=== PATIENT | female | born 1980 | race Caucasian/White ===

== ENCOUNTER 2017-03-22 17:12 | Emergency (ER) | payer OTHER ==
[~2017-03-22] VITALS: Ht 149.9 cm; Wt 72.6 kg
[~2017-03-22 17:12] MED LIST: ALBU1AER9 INH; ATOR-26 PO; ATRINSX INH; BECL0.3A INH; CHOL400T SQ; CHOL4POW4 PO; CYM/30 PO; DXY100 PO; FENO145T26 PO; FLUT50SP14 NAE; INSUINJ14 SQ; METF1000 PO; MOME200A INH; MONT1TAB3 PO; TIOTCAP INH
[2017-03-22 17:16] VITALS: TEMP 36.8; Ht 149.9 cm; Wt 72.6 kg
[2017-03-22] MEDS ORDERED: ONDANSETRON INJ 2 MG/ML 2 ML VIAL IV STA (17:31)
[2017-03-22] MEDS ORDERED: SODIUM CHLORIDE 0.9% 1000ML 2,000 ML IV STA (17:31)
[2017-03-22] MEDS: MoRPHine SULFATE 4 MG/ML 1 ML CARP\\VIAL IV PRN ×2 (18:05→19:07)
[2017-03-22] MEDS ORDERED: FLUT0.15 (18:11)
[2017-03-22] MEDS ORDERED: INSDGIPEN SQ (18:11)
[2017-03-22] MEDS ORDERED: ALBI1INJ SQ (18:11)
[2017-03-22] MEDS ORDERED: QVRINH80 PO (18:11)
[2017-03-22] MEDS ORDERED: SPRIN PO (18:11)
--- NOTE | 2017-03-22 18:11 | EMERGENCY ROOM VISIT NOTE ---
History First contact with patient: 17:20 Chief Complaint: VOMITING Stated Complaint: VOMITING SINCE WED,ABD PAIN,DIARRHEA History of Present Illness The patient is a 36 year old female who presents to the Emergency Room with complaints of abdominal pain, nausea, vomiting, and diarrhea that started 4 days ago. She has also had some associated chills and low-grade fevers with this. Patient states she is a type II diabetic on metformin and had been taking twice daily NovoLog insulin, she states that she was taken off of the NovoLog and started on Tanzeum injections this past , which was the day before her symptoms started. She states the abdominal pain is severe, cramping and occasionally sharp, constant, diffuse throughout the whole abdomen, 03/21. She states the vomiting has also become severe, she states she is unable to keep anything down today. She did try Pepto-Bismol for her nausea, but states that she vomited this back up. She has had at least 6 episodes of watery diarrhea daily as well, and she notes that it was black today. She states her blood sugars have been running in the low to mid 200s for the past few days, which is higher than usual for her. She denies any headaches, vision changes, neck pain or stiffness, chest pain, shortness of breath, palpitations, dizziness or syncope, back pain, bright red blood in the vomit or stool, dysuria or urinary frequency. Review of Systems A complete 10 point review of systems was reviewed with the patient with pertinent positives and negatives as per history of present illness. All else were negative. Past Medical/Surgical History Medical Problems: (1) Asthma (2) Diabetes Social History Smoking Status: Current Every Day Smoker Alcohol Use: none Marital Status: single Occupation Status: unemployed Current/Historical Medications Scheduled Albiglutide (Tanzeum), 30 MG SQ WK Atorvastatin (Lipitor), 80 MG PO HS Beclomethasone Dip (Qvar), 1 PUFF PO BID Duloxetine Hcl (Cymbalta), 30 MG PO DAILY Fenofibrate (Tricor), 145 MG PO HS Insulin Glargine (Lantus Solostar), 30 UNITS SQ QPM Ipratropium Shellman (Atrovent 0.02% Soln), 2.5 ML INH TID Metformin Hcl (Glucophage), 1,000 MG PO BID Mometasone Furoate-Formoterol (Dulera 200/5 Mcg), 2 AER INH BID Montelukast Sodium (Singulair), 10 MG PO DAILY Ondasetron Odt (Zofran Odt), 4 MG SL Q6H Tiotropium Shellman (Spiriva Handihaler), 1 CAP PO DAILY Scheduled PRN Albuterol Sulfate (Proair Hfa), 2 PUFFS INH Q4H PRN for SOB/Wheezing Fluticasone Propionate (Nasal) (Flonase Allergy Relief), 1 SPRAY NA BID PRN for prn Allergies Reviewed in chart Physical Exam Vital Signs Date Time Temp Pulse Resp B/P (MAP) Pulse Ox O2 Delivery O2 Flow Rate FiO2 03/22/17 20:55 79 16 110/71 98 Room Air 03/22/17 19:00 82 18 107/64 97 Room Air 03/22/17 17:52 94 03/22/17 17:16 36.8 102 20 132/86 98 Room Air Physical Exam CONSTITUTIONAL: No acute distress, but appears uncomfortable and in pain. She is actively vomiting. Moderately dehydrated. Alert and oriented X 4 with normal affect. HEENT: Normocephalic, atraumatic. Pupils equal, round and reactive to light, EOMI. TMs normal. Pharynx normal. Dry mucous membranes. NECK: Supple, full active range of motion without discomfort. RESPIRATORY: Clear to auscultation bilaterally with no wheezing, crackles, rhonchi or stridor. Equal expansion bilaterally. CARDIOVASCULAR: Regular rate and rhythm with no murmurs, rubs or gallops. Normal peripheral perfusion. No edema. GASTROINTESTINAL: Diffuse abdominal tenderness to palpation, mild guarding. Soft and nondistended. Hyperactive bowel sounds. MUSCULOSKELETAL: Full range of motion of all joints without discomfort. INTEGUMENTARY: No rash or other significant dermatologic conditions noted. NEUROLOGIC: Cranial nerves II-XII grossly intact. No focal neurologic deficits noted. Medical Decision & Procedures ER Provider Diagnostic Interpretation: ABD/PELVIS IV CONTRAST ONLY CT DOSE: 514.57 mGy.cm HISTORY: Pain eval diverticulitis, colitis, infection TECHNIQUE: Multiaxial CT images of the abdomen and pelvis were performed following the use of intravenous contrast. A dose lowering technique was utilized adhering to the principles of ALARA. COMPARISON STUDY: 08/30/2015. FINDINGS: Lung bases show minimal chronic parenchymal scarring/nodularity. Liver spleen and pancreas are uniform. Mild stable fatty infiltration of liver. Prior cholecystectomy. Kidneys negative for hydronephrosis. Fluid-filled loops of small bowel as well as colon. Possibility of a mild enteritis is considered. Appendix is normal. 4.5 cm right ovarian cyst. Bladder is midline. No significant free fluid within the pelvic cul-de-sac. IMPRESSION: 1. Nonspecific enteritis. 2. 4.5 cm right ovarian cyst. 3. Normal appendix. 4. Fatty infiltration of liver post cholecystectomy. Laboratory Results 03/22/17 17:56 Red Blood Count 5.42, Mean Corpuscular Volume 89.3, Mean Corpuscular Hemoglobin 31.0, Mean Corpuscular Hemoglobin Concent 34.7, Mean Platelet Volume 11.2, Neutrophils (%) (Auto) 66.1, Lymphocytes (%) (Auto) 26.0, Monocytes (%) (Auto) 5.7, Eosinophils (%) (Auto) 1.5, Basophils (%) (Auto) 0.4, Neutrophils # (Auto) 7.50, Lymphocytes # (Auto) 2.94, Monocytes # (Auto) 0.64, Eosinophils # (Auto) 0.17, Basophils # (Auto) 0.04 03/22/17 17:56 Test 03/22/17 17:31 03/22/17 17:44 03/22/17 17:56 03/22/17 18:02 Bedside Glucose 147 mg/dl (70-90) White Blood Count 11.32 K/uL (4.8-10.8) Red Blood Count 5.42 M/uL (4.2-5.4) Hemoglobin 16.8 g/dL (12.0-16.0) Hematocrit 48.4 % (37-47) Mean Corpuscular Volume 89.3 fL (80-100) Mean Corpuscular Hemoglobin 31.0 pg (25-34) Mean Corpuscular Hemoglobin Concent 34.7 g/dl (32-36) Platelet Count 233 K/uL (130-400) Mean Platelet Volume 11.2 fL (7.4-10.4) Neutrophils (%) (Auto) 66.1 % Lymphocytes (%) (Auto) 26.0 % Monocytes (%) (Auto) 5.7 % Eosinophils (%) (Auto) 1.5 % Basophils (%) (Auto) 0.4 % Neutrophils # (Auto) 7.50 K/uL (1.4-6.5) Lymphocytes # (Auto) 2.94 K/uL (1.2-3.4) Monocytes # (Auto) 0.64 K/uL (0.11-0.59) Eosinophils # (Auto) 0.17 K/uL (0-0.5) Basophils # (Auto) 0.04 K/uL (0-0.2) RDW Standard Deviation 39.9 fL (36.4-46.3) RDW Coefficient of Variation 12.2 % (11.5-14.5) Immature Granulocyte % (Auto) 0.3 % Immature Granulocyte # (Auto) 0.03 K/uL (0.00-0.02) Venous Blood pH 7.40 (7.36-7.41) Venous Blood Partial Pressure CO2 34 mmHg (38.0-50.0) Venous Blood Partial Pressure O2 30 mmHg Venous Blood HCO3 21 mmol/L Venous Blood Oxygen Saturation 62.4 % Venous Blood Base Excess -2.9 mEq/L Est Creatinine Clear Calc Drug Dose 83.6 ml/min Estimated GFR () 109.2 Estimated GFR (Non- 94.2 BUN/Creatinine Ratio 13.9 (10-20) Calcium Level 9.6 mg/dl (8.5-10.1) Total Bilirubin 0.6 mg/dl (0.2-1) Direct Bilirubin 0.1 mg/dl (0-0.2) Aspartate Amino Transf (AST/SGOT) 20 U/L (15-37) Alanine Aminotransferase (ALT/SGPT) 29 U/L (12-78) Alkaline Phosphatase 105 U/L (45-117) Total Protein 8.4 gm/dl (6.4-8.2) Albumin 3.8 gm/dl (3.4-5.0) Lipase 153 U/L (73-393) Beta-Hydroxybutyric Acid 3.76 mg/dL (0.2-2.81) Bedside Lactic Acid Venous 1.41 mmol/L (0.90-1.70) Test 03/22/17 18:06 Bedside Hemoglobin 19.4 g/dl (12.0-16.0) Bedside Hematocrit 57 % (37-47) Bedside Sodium 140 mEq/L (135-144) Bedside Potassium 3.6 mEq/L (3.3-5.0) Bedside Chloride 105 mEq/L (101-112) Bedside Total CO2 20 mEq/l (24-31) Anion Gap 19.0 mmol/L (16-25) Bedside Blood Urea Nitrogen 12 mg/dl (7-18) Bedside Creatinine 0.8 mg/dl (0.6-1.3) Bedside Glucose (other) 155 mg/dl (70-99) Bedside Ionized Calcium (Jimenez) 1.20 mmol/l (1.12-1.32) Medications Administered Medications (Trade) Dose Ordered Sig/Bridgette Route Start Time Stop Time Status Last Admin Dose Admin Sodium Chloride 2,000 ml @ 999 mls/hr Q2H1M STAT IV 03/22/17 17:31 03/22/17 19:31 DC 03/22/17 18:05 999 MLS/HR Ondansetron HCl (Zofran Inj) 4 mg NOW STAT IV 03/22/17 17:31 03/22/17 17:36 DC 03/22/17 18:05 4 MG Morphine Sulfate (MoRPHine SULFATE INJ) 4 mg Q1H PRN IV 03/22/17 17:45 03/22/17 21:33 DC 03/22/17 19:07 4 MG Ondansetron HCl (ZOFRAN ODT 4MG Home Pack) 1 homepack UD ONCE PO 03/22/17 20:45 03/22/17 20:46 DC 03/22/17 20:45 1 HOMEPACK Acetaminophen (Tylenol Tab) 1,000 mg NOW STAT PO 03/22/17 20:58 03/22/17 21:02 DC 03/22/17 21:07 1,000 MG Medical Decision CC: Patient presenting with complaint of abdominal pain, nausea, vomiting, diarrhea Interpretation of Labs: Mild leukocytosis, no anemia, no significant electrolyte abnormalities, normal renal function, normal liver enzymes and lipase, normal lactic acid, normal pH. Small serum ketones. Urine dip negative for ketones or infection. Differential Diagnosis: Includes, but not limited to gastritis, gastroenteritis , DKA, hyperglycemia, dehydration, electrolyte abnormality, cholecystitis, pancreatitis, diverticulitis, colitis, SBO, medication side effects, among others. Medication Reconciliation: I attest that I have personally reviewed the patient' s current medication list. Vital signs review: I reviewed the patient's vital signs and interpret them as follows: T: Afebrile; BP: Normotensive; HR: Tachycardic; RR: Within normal limits; Pulse Ox: Within normal limits on room air. Blood pressure screening: The patient was found to have normal blood pressure on screening and does not require follow-up for repeat blood pressure check. Summary: Patient was evaluated at bedside, history of physical exam performed. Patient is alert and in no acute distress, but appears very uncomfortable and is vomiting. The abdomen is diffusely tender to palpation with some guarding, left side greater than right. The patient also appears moderately dehydrated. Given her recent changes in diabetes medication and report of elevated blood sugars over the past few days, I'm concerned for possible DKA, as well as adverse effects of Tanzeum, which is a new medication for her. Review of Tanzeum adverse effects includes acute pancreatitis, nausea and vomiting, and diarrhea. Orders were placed at bedside for labs including a CBC, CMP, lipase, VBG, lactic acid, serum ketones, UA, IV fluid bolus for hydration, IV morphine and Zofran for pain and nausea, CT abdomen/pelvis with IV contrast to evaluate abdominal pain. Patient discussed with Dr. Piedra, who agrees with my assessment and plan. Labs reviewed as above, small amount of serum ketones, no acidosis, I do not suspect DKA at this time. Mild leukocytosis. No evidence of acute pancreatitis. No ketonuria. CT imaging shows diffuse intestinal enteritis and right ovarian cyst, no other acute findings. Patient reassessed multiple times throughout ED stay, she is feeling much better , and now able to tolerate PO fluids. Her pain is also improved. Tachycardia resolved after IV fluids. I suspect patient may have a viral gastroenteritis, given leukocytosis with chills, vomiting, and diarrhea. She may also be having adverse side effects from the Tanzeum. I instructed her to call her PCP tomorrow to arrange follow up to discuss this medication. Patient was instructed on return precautions should her symptoms get worse, she verbalized understanding. Patient was provided with Rx for Zofran to help continue managing her nausea and vomiting and help her to maintain fluid intake for hydration. Patient was discharged home in stable condition and ambulatory. Medication Reconcilliation Current Medication List: was personally reviewed by me Blood Pressure Screening Patient's blood pressure: Normal blood pressure Impression Primary Impression: Nausea, vomiting, and diarrhea Additional Impression: Dehydration, moderate Departure Information Dispostion Home / Self-Care Condition GOOD Prescriptions Ondasetron Odt (ZOFRAN ODT) 4 Mg Tab 4 MG SL Q6H for Nausea, #6 TAB Prov: Jerri GutiérrezTARA Velazquez 03/22/17 Referrals Asya Miranda PA-C (PCP) Patient Instructions ED Dehydration, ED Gastroenteritis Viral, My [facility] Additional Instructions You have been treated in the Emergency Department your Abdominal Pain, Nausea and Vomiting. Laboratory results and imaging studies have ruled out any emergent causes for your abdominal pain which would warrant admission or surgery. You did show signs of gastroenteritis on your CT scan, which is consistent with most likely a viral infection. You were also quite dehydrated. You have been prescribed Zofran to be used for any nausea or vomiting. Take as prescribed. For pain control, you can use the following [id number] medicines (if >12 yo): - Regular strength (325mg/tab) Tylenol (acetaminophen) 2 tabs every 4-6 hours as needed. Do not exceed 10 tablets in a 24 hour period. Avoid taking more than 3000 mg of Tylenol per day. This includes any other sources of acetaminophen you may take on a regular basis. Drink plenty of fluids to stay well hydrated. You should drink at least twice as much as she normally would as long as you're having any diarrhea or vomiting. Call your PCP tomorrow to schedule an appointment for close follow-up. You should discuss your new medication, Tanzeum, to determine if you are having bad side effects related to this medication. Please return to the emergency department for worsening symptoms, including severe worsening abdominal pain, persistent or worsening nausea/vomiting, vomiting up blood, dizziness or passing out, fevers or chills, decreased urination, or any other concerns. Work Instructions Return To Work: 2 days Problem Qualifiers
[2017-03-22 18:19] LABS: ISTAT CREATININE 0.8 mg/dl (0.6-1.3); ISTAT HEMOGLOBIN 19.4 g/dl (12.0-16.0); ISTAT IONIZED CALCIUM 1.2 mmol/l (1.12-1.32)
[2017-03-22 18:27] LABS: BASO % 0.4 %; BASO ABS # 0.04 K/uL (0-0.2); COMPLETE YES; EOS % 1.5 %; HEMATOCRIT 48.4 % (37-47); IG% 0.3 %; LYMPH ABS # 2.94 K/uL (1.2-3.4); MEAN CELL VOLUME 89.3 fL (80-100); MEAN CORPUSCULAR HGB CONC 34.7 g/dl (32-36); MEAN PLATELET VOLUME 11.2 fL (7.4-10.4); MONO % 5.7 %; NEUT % 66.1 %; PLATELET COUNT 233 K/uL (130-400); RED BLOOD COUNT 5.42 M/uL (4.2-5.4); WHITE BLOOD COUNT 11.32 K/uL (4.8-10.8)
[2017-03-22 18:28] LABS: BUN/CREATININE RATIO 13.9 (10-20); CALCIUM 9.6 mg/dl (8.5-10.1); CREATININE 0.8 mg/dl (0.60-1.20); POTASSIUM 3.7 mmol/L (3.5-5.1)
[2017-03-22 18:31] LABS: BETA-HYDROXYBUTYRATE 3.76 mg/dL (0.2-2.81)
[2017-03-22] MEDS ORDERED: OPTIRAY 320 IV PRN (19:00)
--- NOTE | 2017-03-22 19:12 | DIAGNOSTIC IMAGING REPORT ---
ABD/PELVIS IV CONTRAST ONLY CT DOSE: 514.57 mGy.cm HISTORY: Pain eval diverticulitis, colitis, infection TECHNIQUE: Multiaxial CT images of the abdomen and pelvis were performed following the use of intravenous contrast. A dose lowering technique was utilized adhering to the principles of ALARA. COMPARISON STUDY: 08/30/2015. FINDINGS: Lung bases show minimal chronic parenchymal scarring/nodularity. Liver spleen and pancreas are uniform. Mild stable fatty infiltration of liver. Prior cholecystectomy. Kidneys negative for hydronephrosis. Fluid-filled loops of small bowel as well as colon. Possibility of a mild enteritis is considered. Appendix is normal. 4.5 cm right ovarian cyst. Bladder is midline. No significant free fluid within the pelvic cul-de-sac. IMPRESSION: 1. Nonspecific enteritis. 2. 4.5 cm right ovarian cyst. 3. Normal appendix. 4. Fatty infiltration of liver post cholecystectomy. The above report was generated using voice recognition software. It may contain grammatical, syntax or spelling errors. Electronically signed by: Arjun Perez M.D. 03/22/2017 7:11 PM Dictated Date/Time: 03/22/2017 6:58 PM
[2017-03-22 20:15] LABS: VEN BLD GAS O2 SATURATION 62.4 %; VEN BLOOD GAS BASE EXCESS -2.9 mEq/L; VENOUS BLOOD GAS PCO2 34 mmHg (38.0-50.0); VENOUS BLOOD GAS PO2 30 mmHg
[2017-03-22] MEDS ORDERED: ONDA4TAB10 SL (20:35)
[2017-03-22] MEDS ORDERED: ONDANSETRON HOME PACK 4MG OD TAB PO ONE (20:45)
[2017-03-22 20:55] VITALS: BP 110/71; PULSE 79; O2SAT 98
[2017-03-22] MEDS ORDERED: ACETAMINOPHEN 500 MG TAB PO STA (20:58)
[2017-03-22 22:59] LABS: MANUAL MICROSCOPIC REQUIRED? NO; REVIEW REQ? NO; URINE APPEARANCE CLEAR (CLEAR); URINE BILIRUBIN NEG (NEG); URINE COLOR YELLOW; URINE EPITHELIAL CELL AUTO >30 /lpf (0-5); URINE NITRITE NEG (NEG); URINE SPECIFIC GRAVITY > 1.045 (1.000-1.030); UROBILINOGEN NEG (NEG)
== END 2017-03-22 21:14 | disposition home or self-care (01) ==
LOC: C.EDB 17:13 → C.EDA 21:14
DX: E86.0 Dehydration (principal); J45.909 Unspecified asthma, uncomplicated; E11.9 Type 2 diabetes mellitus without complications; F17.210 Nicotine dependence, cigarettes, uncomplicated; Z79.4 Long term (current) use of insulin; Z79.899 Other long term (current) drug therapy

== ENCOUNTER 2017-09-17 18:50 | Emergency (ER) | payer OTHER ==
[~2017-09-17] VITALS: Ht 149.9 cm; Wt 74.2 kg
[~2017-09-17 18:50] MED LIST changes: +ALBI1INJ SQ; -BECL0.3A INH; -CHOL400T SQ; -CHOL4POW4 PO; -DXY100 PO; +FLUT0.15; -FLUT50SP14 NAE; +INSDGIPEN SQ; -INSUINJ14 SQ; +ONDA4TAB10 SL; +QVRINH80 PO; +SPRIN PO; -TIOTCAP INH
[2017-09-17 18:53] VITALS: TEMP 36.5; Ht 149.9 cm; Wt 74.2 kg
[2017-09-17] MEDS ORDERED: SODIUM CHLORIDE 0.9% 1000ML 1,000 ML IV STA (19:17)
[2017-09-17] MEDS ORDERED: ONDANSETRON INJ 2 MG/ML 2 ML VIAL IV STA (19:17)
--- NOTE | 2017-09-17 19:20 | EMERGENCY ROOM VISIT NOTE ---
History Report prepared by Jan: Isak Stratton Under the Supervision of: Dr. Alex Fernandes M.D. First contact with patient: 18:56 Chief Complaint: HYPERGLYCEMIA Stated Complaint: SEVERE LOWER ABDOMINAL PAIN, HIGH SUGARS, WEAKNES History of Present Illness The patient is a 37 year old female with a past medical history of asthma, fibromyalgia, diabetes, hypertension, and hyperlipidemia and a past surgical history of a cholecystectomy and hysterectomy who presents to the ED with a cc of constant lower abdominal pain beginning yesterday at 1400. Positive for chills, feeling hot, and urinating less. Negative for dysuria, hematuria, and trauma. The patient states that she began to develop a sharp lower abdominal pain yesterday at 1400. She notes that her pain is worse on the left. She reports that she has had problems with her ovaries in the past, with her left one being removed and a cyst on the right. The patient states that she tried taking Tylenol and using a heating pad with no relief of her symptoms. She notes that her current pain feels similar to when she had a hysterectomy. She reports that she had diarrhea last night, but states that she has chronic diarrhea. Source of History: patient Onset: yesterday at 1400 Position: abdomen (lower) Timing: constant Associated Symptoms: + chills, + diarrhea, + urinary symptoms (urinating less) Note: The patient also complains of feeling hot. She denies any dysuria, hematuria, and trauma. Review of Systems See HPI for pertinent positives and negatives. A total of ten systems were reviewed and were otherwise negative. Past Medical & Surgical Medical Problems: (1) Asthma (2) Diabetes (3) Fibromyalgia (4) Hyperlipidemia (5) Hypertension (6) Right ovarian cyst Surgical Problems: (1) History of cholecystectomy (2) History of hysterectomy (3) History of tonsillectomy (4) Previous section (5) S/P removal of left ovary Family History Cancer Diabetes mellitus FHx: gallbladder disease Heart disease Hypertension Lung disease Social History Smoking Status: Current Every Day Smoker Alcohol Use: none Drug Use: none Marital Status: single Occupation Status: unemployed Current/Historical Medications Scheduled Atorvastatin (Lipitor), 80 MG PO HS Beclomethasone Dip (Qvar), 1 PUFF PO BID Duloxetine Hcl (Cymbalta), 30 MG PO DAILY Fenofibrate (Tricor), 145 MG PO HS Insulin Aspart (Novolog Flexpen), 6 UNITS SQ AC Insulin Glargine (Lantus Solostar), 30 UNITS SQ QPM Ipratropium [place] (Atrovent 0.02% Soln), 2.5 ML INH TID Metformin Hcl (Glucophage), 1,000 MG PO BID Mometasone Furoate-Formoterol (Dulera 200/5 Mcg), 2 AER INH BID Montelukast Sodium (Singulair), 10 MG PO DAILY Tiotropium [place] (Spiriva Handihaler), 1 CAP PO DAILY Tramadol Hcl (Ultram), 50 MG PO Q8H Scheduled PRN Albuterol Hfa (Ventolin Hfa), 2 PUFF INH Q4 PRN for Wheezing Dicyclomine Hcl (Bentyl), 10 MG PO TID PRN for Pain Fluticasone Propionate (Nasal) (Flonase Allergy Relief), 1 SPRAY NA BID PRN for prn Ipratropium Prescott (Ipratropium Prescott), 1 VIAL NEB TID PRN for SOB/Wheezing Ondansetron Hcl (Zofran), 4 MG PO Q8H PRN for Nausea Allergies Coded Allergies: Aspirin (Verified Allergy, Intermediate, UNABLE TO BREATHE, 07/30/14) Azithromycin (Verified Allergy, Intermediate, HIVES, 07/30/14) Dextromethorphan (Verified Allergy, Intermediate, asthma attack, 07/30/14) Guaifenesin (Verified Allergy, Intermediate, asthma attack, 07/30/14) NSAIDs (Verified Allergy, Intermediate, SHORTNESS OF BREATH, 07/30/14) Naproxen (Verified Allergy, Intermediate, SHORTNESS OF BREATH, 07/30/14) Uncoded Allergies: TREXAMET (Allergy, Intermediate, SHORTNESS OF BREATH, 12/04/11) MINT (Adverse Reaction, Severe, ASTHMA ATTACK, 09/17/17) Physical Exam Vital Signs Date Time Temp Pulse Resp B/P (MAP) Pulse Ox O2 Delivery O2 Flow Rate FiO2 09/17/17 21:46 86 18 105/66 98 09/17/17 20:57 82 18 112/76 99 Room Air 09/17/17 18:53 36.5 99 18 164/118 97 Room Air Physical Exam GENERAL: Awake, alert, well-appearing, NAD, wearing glasses HENT: Normocephalic, atraumatic. EYES: Normal conjunctiva. Sclera non-icteric. NECK: Supple. No nuchal rigidity. FROM. RESPIRATORY: CTAB, no rhonchi, wheezing, crackles CARDIAC: RRR, no MRG ABDOMEN: Soft, ND, BS+, right lower suprapubic and LLQ tenderness, worse in LLQ , not peritonitic MSK: No chest wall TTP, no LE edema, no CVA TTP NEURO: GCS 15, CN 2-12 intact, moves all 4s on command SKIN: No rash or jaundice noted. Medical Decision & Procedures ER Provider Diagnostic Interpretation: Radiology results as stated below per my review and radiologist interpretation: ABDOMEN 2VIEW W/PA CHEST RTN FINDINGS: The erect chest reveals no evidence of free air. There is no evidence of focal pulmonary consolidation.] Erect and supine views of the abdomen reveal no abnormally dilated loops of large or small bowel. There are no transition zone to indicate bowel obstruction. There are surgical clips within the right upper quadrant consistent with a prior cholecystectomy. IMPRESSION: No evidence of bowel obstruction. No evidence of free air. Electronically signed by: Thaddeus Jacobs M.D. 09/17/2017 8:[address] ABD/PELVIS IV CONTRAST ONLY FINDINGS: Lower chest: There are chronic right middle lobe airspace opacities. There is lower lobe bronchiectasis. There are scattered ill-defined lower lobe pulmonary nodules, likely infectious/inflammatory. Liver: There is hepatic steatosis. No focal masses are visualized. Gallbladder: Surgically absent Spleen: Top normal in size Pancreas: Unremarkable. Adrenal glands: Unremarkable. Kidneys: There is symmetric renal cortical enhancement. The kidneys are normal in size without hydronephrosis. Bowel: There are no transition zones indicate bowel obstruction. There is no acute diverticulitis. A few scattered colonic diverticula are visualized. The appendix appears normal. Peritoneum: There is no intraperitoneal free air or abdominal ascites. Vasculature: The abdominal aorta is normal in course and caliber. Adenopathy: None. Pelvic viscera: The patient is status post a prior hysterectomy. There is a 31 mm cystic right adnexal cyst. This is likely ovarian. This is smaller than on the prior study Skeletal structures: No destructive osseous lesions are seen. IMPRESSION: 1. No evidence of bowel obstruction. No evidence of free air 2. Normal appendix. No evidence of diverticulitis 3. 31 mm right adnexal cyst likely ovarian. This is smaller than the prior March 2017 study 4. Hepatic steatosis 5. Lower lobe bronchiectatic change 6. Chronic right middle lobe scarring 7. Ill-defined lower lobe nodular opacities, likely infectious/inflammatory Electronically signed by: Thaddeus Jacobs M.D. 09/17/2017 8:28 PM Laboratory Results 09/17/17 19:15 Red Blood Count 5.29, Mean Corpuscular Volume 88.5, Mean Corpuscular Hemoglobin 31.8, Mean Corpuscular Hemoglobin Concent 35.9, Mean Platelet Volume 11.1, Neutrophils (%) (Auto) 45.9, Lymphocytes (%) (Auto) 44.4, Monocytes (%) (Auto) 6.1, Eosinophils (%) (Auto) 2.9, Basophils (%) (Auto) 0.5, Neutrophils # (Auto) 4.32, Lymphocytes # (Auto) 4.18, Monocytes # (Auto) 0.57, Eosinophils # (Auto) 0.27, Basophils # (Auto) 0.05 09/17/17 19:15 Test 09/17/17 19:00 09/17/17 19:02 09/17/17 19:15 Urine Color YELLOW Urine Appearance CLOUDY (CLEAR) Urine pH 5.0 (4.5-7.5) Urine Specific [place] 1.015 (1.000-1.030) Urine Protein NEG (NEG) Urine Glucose (UA) 3+ (NEG) Urine Ketones NEG (NEG) Urine Occult Blood NEG (NEG) Urine Nitrite NEG (NEG) Urine Bilirubin NEG (NEG) Urine Urobilinogen NEG (NEG) Urine Leukocyte Esterase MODERATE (NEG) Urine WBC (Auto) >30 /hpf (0-5) Urine RBC (Auto) 0-4 /hpf (0-4) Urine Hyaline Casts (Auto) 1-5 /lpf (0-5) Urine Epithelial Cells (Auto) >30 /lpf (0-5) Urine Bacteria (Auto) 2+ (NEG) Urine Test NEG (NEG) Bedside Glucose 202 mg/dl (70-90) White Blood Count 9.41 K/uL (4.8-10.8) Red Blood Count 5.29 M/uL (4.2-5.4) Hemoglobin 16.8 g/dL (12.0-16.0) Hematocrit 46.8 % (37-47) Mean Corpuscular Volume 88.5 fL (80-100) Mean Corpuscular Hemoglobin 31.8 pg (25-34) Mean Corpuscular Hemoglobin Concent 35.9 g/dl (32-36) Platelet Count 219 K/uL (130-400) Mean Platelet Volume 11.1 fL (7.4-10.4) Neutrophils (%) (Auto) 45.9 % Lymphocytes (%) (Auto) 44.4 % Monocytes (%) (Auto) 6.1 % Eosinophils (%) (Auto) 2.9 % Basophils (%) (Auto) 0.5 % Neutrophils # (Auto) 4.32 K/uL (1.4-6.5) Lymphocytes # (Auto) 4.18 K/uL (1.2-3.4) Monocytes # (Auto) 0.57 K/uL (0.11-0.59) Eosinophils # (Auto) 0.27 K/uL (0-0.5) Basophils # (Auto) 0.05 K/uL (0-0.2) RDW Standard Deviation 38.9 fL (36.4-46.3) RDW Coefficient of Variation 12.2 % (11.5-14.5) Immature Granulocyte % (Auto) 0.2 % Immature Granulocyte # (Auto) 0.02 K/uL (0.00-0.02) Anion Gap 6.0 mmol/L (3-11) Est Creatinine Clear Calc Drug Dose 82.7 ml/min Estimated GFR () 106.8 Estimated GFR (Non- 92.1 BUN/Creatinine Ratio 8.7 (10-20) Calcium Level 9.3 mg/dl (8.5-10.1) Total Bilirubin 0.4 mg/dl (0.2-1) Direct Bilirubin < 0.1 mg/dl (0-0.2) Aspartate Amino Transf (AST/SGOT) 21 U/L (15-37) Alanine Aminotransferase (ALT/SGPT) 32 U/L (12-78) Alkaline Phosphatase 116 U/L (45-117) Total Protein 8.2 gm/dl (6.4-8.2) Albumin 3.5 gm/dl (3.4-5.0) Lipase 226 U/L (73-393) Laboratory results reviewed by me Medications Administered Medications (Trade) Dose Ordered Sig/Bridgette Route Start Time Stop Time Status Last Admin Dose Admin Sodium Chloride 1,000 ml @ 999 mls/hr Q1H1M STAT IV 09/17/17 19:17 09/17/17 20:17 DC 09/17/17 19:32 999 MLS/HR Ondansetron HCl (Zofran Inj) 4 mg NOW STAT IV 09/17/17 19:17 09/17/17 19:19 DC 09/17/17 19:32 4 MG Morphine Sulfate (MoRPHine SULFATE INJ) 8 mg NOW STAT IV 09/17/17 19:36 09/17/17 19:37 DC 09/17/17 19:41 8 MG Tramadol HCl (Ultram Tab) 50 mg NOW STAT PO 09/17/17 21:35 09/17/17 21:36 DC 09/17/17 21:40 50 MG Acetaminophen (Tylenol Tab) 1,000 mg NOW STAT PO 09/17/17 21:35 09/17/17 21:37 DC 09/17/17 21:42 1,000 MG ED Course 1905: The patient was evaluated in room C7. A complete history and physical exam was performed. 2121: I rechecked the patient. 2140: I reevaluated the patient. Discussed results and discharge instructions: She verbalized understanding and agreement. The patient is ready for discharge. Medical Decision The patient is a 37 year old female with a past medical history of diabetes, hypertension, and hyperlipidemia and a past surgical history of cholecystectomy and hysterectomy who presents to the ED with a cc of constant lower abdominal pain beginning yesterday at 1400. Positive for chills, feeling hot, and urinating less. Negative dysuria, hematuria, and trauma. Differential diagnosis: Etiologies such as appendicitis, diverticulitis, PUD, biliary pathology, UTI, pancreatitis, obstruction, mesenteric ischemia, aortic pathology, infections, inflammatory bowel disease, renal colic, as well as others were entertained. Patient was seen and evaluated the bedside. Patient was complaining some lower abdominal pain. Patient did have a recent bowel movement. Of note the patient has had some prior procedures. This has included a hysterectomy, left nephrectomy, and cholecystectomy. Patient has had some nausea but without vomiting. Patient did have blood work completed, urinalysis, urine test, CT of the abdomen pelvis. Patient's blood work is fairly unremarkable. Patient did have mild hyperglycemia but with a normal bicarb and anion gap. She is not in DKA. Patient CT abdomen pelvis is fairly unremarkable. Patient does have a right-sided ovarian cyst however it is decreased in size compared to prior. Patient is feeling mildly improved. Patient was able tolerate p.o. Patient's urinalysis is questionable for infection however the patient does not complain of any dysuria. A culture is pending. Patient was told to follow-up with any of her specialist. Patient was deemed suitable for outpatient follow- up and treatment at this time. Patient was given strict follow-up, discharge, and return precautions. All questions were answered. Patient was deemed suitable for outpatient follow-up at this time. Patient agreed with the plan of care and was safely discharged home. Head Trauma GCS Score: 15 Medication Reconcilliation Current Medication List: was personally reviewed by me Blood Pressure Screening Patient's blood pressure: Normal blood pressure Blood pressure disposition: Did not require urgent referral Impression Primary Impression: Lower abdominal pain Additional Impression: Hyperglycemia Scribe Attestation The scribe's documentation has been prepared under my direction and personally reviewed by me in its entirety. I confirm that the note above accurately reflects all work, treatment, procedures, and medical decision making performed by me. Departure Information Dispostion Home / Self-Care Prescriptions Ondansetron Hcl (ZOFRAN) 4 Mg Tab 4 MG PO Q8H Y for Nausea, #12 TAB Prov: Alex Fernandes M.D. 09/17/17 Tramadol Hcl (ULTRAM) 50 Mg Tab 50 MG PO Q8H, #12 TAB PRN PAIN Prov: Alex Fernandes M.D. 09/17/17 Dicyclomine Hcl (BENTYL) 10 Mg Cap 10 MG PO TID Y for Pain, #12 CAP Prov: Alex Fernandes M.D. 09/17/17 Referrals Asya Miranda PA-C (PCP) Forms HOME CARE DOCUMENTATION FORM, IMPORTANT VISIT INFORMATION, WORK / SCHOOL INSTRUCTIONS Patient Instructions Abdominal Pain, Hyperglycemia, My [facility] [place] Additional Instructions Please return to the emergency department if you have worsening or recurrent symptoms not amenable to at-home treatment. Please call for a follow-up appointment with her primary care physician. Please take your medications as prescribed. If you have other concerns and/or complaints please feel free to also call your primary care physician's office or return the ED for further evaluation, management, and treatment. Take your medications as prescribed. You have been examined and treated today on an emergency basis only. This is not a substitute for, or an effort to provide, complete comprehensive medical care. It is impossible to recognize and treat all injuries or illnesses in a single emergency department visit. It is therefore important that you follow up closely with [facility], your PCP, and/or your specialist(s). Call as soon as possible for an appointment. Thank you for your time and consideration. I look forward to speaking with you again soon. Please don't hesitate to call us if you have any questions. Problem Qualifiers
[2017-09-17] MEDS ORDERED: MoRPHine SULFATE 10 MG/ML CARP/VIAL IV STA (19:36)
[2017-09-17 19:37] LABS: BASO % 0.5 %; BASO ABS # 0.05 K/uL (0-0.2); EOS % 2.9 %; EOS ABS # 0.27 K/uL (0-0.5); HEMATOCRIT 46.8 % (37-47); HEMOGLOBIN 16.8 g/dL (12.0-16.0); IG# 0.02 K/uL (0.00-0.02); LYMPH % 44.4 %; LYMPH ABS # 4.18 K/uL (1.2-3.4); MEAN CELL VOLUME 88.5 fL (80-100); MEAN CORPUSCULAR HEMOGLOBIN 31.8 pg (25-34); MEAN CORPUSCULAR HGB CONC 35.9 g/dl (32-36); MEAN PLATELET VOLUME 11.1 fL (7.4-10.4); MONO % 6.1 %; MONO ABS # 0.57 K/uL (0.11-0.59); NEUT % 45.9 %; NEUT ABS # 4.32 K/uL (1.4-6.5); PLATELET COUNT 219 K/uL (130-400); RED CELL DISTRIBUTION WIDTH CV 12.2 % (11.5-14.5); RED CELL DISTRIBUTION WIDTH SD 38.9 fL (36.4-46.3); WHITE BLOOD COUNT 9.41 K/uL (4.8-10.8)
[2017-09-17 19:54] LABS: ALBUMIN 3.5 gm/dl (3.4-5.0); ALT/SGPT 32 U/L (12-78); BLOOD UREA NITROGEN 7 mg/dl (7-18); CALCIUM 9.3 mg/dl (8.5-10.1); CARBON DIOXIDE 27 mmol/L (21-32); CREATININE 0.81 mg/dl (0.60-1.20); GLUCOSE 193 mg/dl (70-99); LIPASE 226 U/L (73-393); POTASSIUM 3.7 mmol/L (3.5-5.1); SODIUM 136 mmol/L (136-145)
[2017-09-17 19:57] LABS: ALKALINE PHOSPHATASE 116 U/L (45-117); AST/SGOT 21 U/L (15-37); TOTAL PROTEIN 8.2 gm/dl (6.4-8.2)
--- NOTE | 2017-09-17 20:03 | DIAGNOSTIC IMAGING REPORT ---
ABDOMEN 2VIEW W/PA CHEST RTN CLINICAL HISTORY: Abdominal pain COMPARISON STUDY: No previous studies for comparison. FINDINGS: The erect chest reveals no evidence of free air. There is no evidence of focal pulmonary consolidation.] Erect and supine views of the abdomen reveal no abnormally dilated loops of large or small bowel. There are no transition zone to indicate bowel obstruction. There are surgical clips within the right upper quadrant consistent with a prior cholecystectomy. IMPRESSION: No evidence of bowel obstruction. No evidence of free air. Electronically signed by: Thaddeus Jacobs M.D. 09/17/2017 8:02 PM Dictated Date/Time: 09/17/2017 8:01 PM
[2017-09-17] MEDS ORDERED: OPTIRAY 320 IV PRN (20:30)
--- NOTE | 2017-09-17 20:30 | DIAGNOSTIC IMAGING REPORT ---
CT ABD/PELVIS IV CONTRAST ONLY CLINICAL HISTORY: Worsening left lower quadrant abdominal pain. COMPARISON STUDY: 03/22/2017 TECHNIQUE: Following the IV administration of 115 mL of Optiray-320, CT scan of the abdomen and pelvis was performed from the lung bases to the proximal femurs. Images are reviewed in the axial, sagittal, and coronal planes. IV contrast was administered without complication. A dose lowering technique was utilized adhering to the principles of ALARA. CT DOSE: 594.76 mGy.cm FINDINGS: Lower chest: There are chronic right middle lobe airspace opacities. There is lower lobe bronchiectasis. There are scattered ill-defined lower lobe pulmonary nodules, likely infectious/inflammatory. Liver: There is hepatic steatosis. No focal masses are visualized. Gallbladder: Surgically absent Spleen: Top normal in size Pancreas: Unremarkable. Adrenal glands: Unremarkable. Kidneys: There is symmetric renal cortical enhancement. The kidneys are normal in size without hydronephrosis. Bowel: There are no transition zones indicate bowel obstruction. There is no acute diverticulitis. A few scattered colonic diverticula are visualized. The appendix appears normal. Peritoneum: There is no intraperitoneal free air or abdominal ascites. Vasculature: The abdominal aorta is normal in course and caliber. Adenopathy: None. Pelvic viscera: The patient is status post a prior hysterectomy. There is a 31 mm cystic right adnexal cyst. This is likely ovarian. This is smaller than on the prior study Skeletal structures: No destructive osseous lesions are seen. IMPRESSION: 1. No evidence of bowel obstruction. No evidence of free air 2. Normal appendix. No evidence of diverticulitis 3. 31 mm right adnexal cyst likely ovarian. This is smaller than the prior March 2017 study 4. Hepatic steatosis 5. Lower lobe bronchiectatic change 6. Chronic right middle lobe scarring 7. Ill-defined lower lobe nodular opacities, likely infectious/inflammatory Electronically signed by: Thaddeus Jacobs M.D. 09/17/2017 8:28 PM Dictated Date/Time: 09/17/2017 8:22 PM
[2017-09-17] MEDS ORDERED: VNTHFA/IN INH (21:10)
[2017-09-17] MEDS ORDERED: NVLGI/PEN SQ (21:11)
[2017-09-17] MEDS ORDERED: ATRINS NEB (21:12)
[2017-09-17] MEDS ORDERED: DICY10CA55 PO (21:33)
[2017-09-17] MEDS ORDERED: ONDA4TAB46 PO (21:33)
[2017-09-17] MEDS ORDERED: TRAM-453 PO (21:33)
[2017-09-17] MEDS ORDERED: ACETAMINOPHEN 500 MG TAB PO STA (21:35)
[2017-09-17] MEDS ORDERED: TRAMADOL HCL 50 MG TAB PO STA (21:35)
[2017-09-17] MEDS ORDERED: TRAMADOL HCL 50 MG HOME PACK PO ONE (21:45)
[2017-09-17 21:46] VITALS: BP 105/66; PULSE 86; O2SAT 98
== END 2017-09-17 21:40 | disposition home or self-care (01) ==
LOC: C.EDB 18:50 → C.EDC 21:40
DX: R10.30 Lower abdominal pain, unspecified (principal); E11.65 Type 2 diabetes mellitus with hyperglycemia; J45.909 Unspecified asthma, uncomplicated; I10 Essential (primary) hypertension; E78.5 Hyperlipidemia, unspecified; M79.7 Fibromyalgia; N83.201 Unspecified ovarian cyst, right side; Z90.49 Acquired absence of other specified parts of digestive tract; Z90.710 Acquired absence of both cervix and uterus; Z90.721 Acquired absence of ovaries, unilateral; R19.7 Diarrhea, unspecified; F17.200 Nicotine dependence, unspecified, uncomplicated; Z79.4 Long term (current) use of insulin; Z79.84 Long term (current) use of oral hypoglycemic drugs; Z83.3 Family history of diabetes mellitus; Z82.49 Family history of ischemic heart disease and other diseases of the circulatory system; Z88.6 Allergy status to analgesic agent; Z88.1 Allergy status to other antibiotic agents; Z88.8 Allergy status to other drugs, medicaments and biological substances

== ENCOUNTER 2025-02-24 10:34 | Inpatient (IN) ==
[2025-02-24 11:08] LABS: Hematocrit (blood only) 44.0 % (37.0-47.0); Hemoglobin 14.7 g/dl (12.0-16.0); Immature Granulocytes # (auto) 0.02 K/uL (0.01-0.20); Immature Granulocytes % (auto) 0.2 %; Mean Corpuscular Hemoglobin 29.9 pg (25.0-34.0); Mean Corpuscular Volume 89.4 fL (80.0-100.0); Platelet Count 337 K/uL (130-400); RDW Standard Deviation 44.9 fL (36.4-46.3); Red Blood Count 4.92 M/uL (4.20-5.40); White Blood Count 11.65 K/ul (4.8-10.8)
[2025-02-24 11:23] LABS: Alanine Aminotransferase 40.0 U/L (7-52); Albumin Globulin Ratio 1.2 (0.9-2); Alkaline Phosphatase 98.0 U/L (34-104); Anion Gap 10.0 (3-11); Bilirubin,Total 0.4 mg/dl (0.2-1.0); Blood Urea Nitrogen 15.0 mg/dl (6-23); Calcium 9.7 mg/dl (8.6-10.3); Carbon Dioxide 22.0 mmol/L (21-32); Chloride 104.0 mmol/L (98-107); Creatinine Clr Calc Pharmacy 66.2 ml/min; Globulin 3.4 gm/dl (2.5-4.0); Glucose 235.0 mg/dl (70-99(Fasting)); Potassium 4.3 mmol/L (3.5-5.1); Sodium 136.0 mmol/L (136-145); Total Protein 7.5 gm/dl (6.0-8.3)
[2025-02-24 11:26] LABS: Pregnancy Test, Serum Negative (Negative)
--- NOTE | 2025-02-24 11:27 | Emergency Department Note ---
Impression & Plan Suicidal ideation, Anxiety ED Provider Note HISTORY OF PRESENT ILLNESS: Patient is a 44-year-old female presenting with anxiety and suicidal ideation. Patient reports that today she has had thoughts of wanting to end her life. She reports that if she would try to kill her self, "I would overdose." She reports she has had previous suicide attempts with an overdose a month ago. She reports has been to multiple inpatient psychiatric facilities in the last month. States that she was admitted at [facility] a month ago. States that she was admitted to the [facility] inpatient psychiatric unit last week. She states that she is currently on BuSpar for her anxiety. 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 Denies any auditory visual hallucinations. ROS: as above PHYSICAL EXAM: Constitutional: Patient appears in no acute distress. HENT: Head: Normocephalic and atraumatic. Eyes: EOMI, PERRL Mouth/Throat: Mucous membranes moist. Neck: Trachea midline. Neck supple. Musculoskeletal: No edema, tenderness or deformity noted. Skin: Warm and dry. No rash, erythema, pallor or cyanosis Psychiatric: Patient is tearful. Neurological: Alert and keenly responsive. CN II-XII grossly intact, moving all extremities equally and fully. MDM: - Vitals signs showed tachycardia - History obtained via patient. History as above. - Chronic conditions affecting care: anxiety/depression - Differential diagnoses include, but are not limited to: depression; UTI; drug intoxication; alcohol intoxication - External medical records reviewed. - Laboratory workup interpreted by myself showed slight leukocytosis (WBC 11.65); normal electrolytes; hyperglycemia (glucose 235); normal TSH; negative hCG; negative alcohol - UA negative for infection - UDS positive for MDMA - COVID negative - Patient seen in conjunction with [facility] case management rn. She was voluntary to 1 admission for inpatient psych. She was evaluated by behavioral health liaison for inpatient psychiatric unit at [address] Patient to be admitted to this unit for further evaluation and management. ASSESSMENT AND PLAN: Diagnosis: Suicidal ideation; anxiety Plan: admit Past Med/Surg History Problem List (Updated 02/24/25 @ 14:53 by Pauly Muñoz MD) Anxiety (Acute) Suicidal ideation (Acute) Asthma (Chronic) Hyperlipidemia Right ovarian cyst Urinary tract infection Right hip pain (Acute) Right hip pain (Acute) Diabetes (Chronic) Reactive airway disease (Acute) Influenza (Acute) Asthma exacerbation (Acute 07/30/14) Hyperglycemia (Acute) Hypertension Fibromyalgia Pneumonia (Acute) Lower abdominal pain (Acute) Medical History HTN (hypertension) Diabetes Neuropathy Fibromyalgia Surgical History S/P hysterectomy Social History Smoking Status: Current every day smoker Tobacco Type: Cigarettes Preferred Language: [place] marital status: Single current occupational status: unemployed Feels Safe at Home: Yes Gender Identity: Female Allergies Allergies Allergy/AdvReac Type Severity Reaction Status Date / Time aspirin Allergy Intermediate UNABLE TO Verified 07/30/14 14:01 BREATHE azithromycin Allergy Intermediate Hives Verified 06/19/19 14:44 dextromethorphan Allergy Intermediate asthma Verified 07/30/14 14:01 attack guaifenesin Allergy Intermediate asthma Verified 07/30/14 14:01 attack naproxen Allergy Intermediate SHORTNESS Verified 07/30/14 14:01 OF BREATH NSAIDS (Non-Steroidal Allergy Intermediate SHORTNESS Verified 07/30/14 14:01 Anti-Inflamma OF BREATH sumatriptan [From Treximet] Allergy Intermediate SHORTNESS Verified 06/19/19 14:44 OF BREATH mint AdvReac Severe ASTHMA Verified 06/19/19 14:44 ATTACK Home Meds Home Medications Medication Instructions Recorded Confirmed albuterol sulfate 90 mcg/actuation 2 puff inhalation Q4H PRN Wheezing 11/01/18 02/24/25 aerosol inhaler (Ventolin HFA) atorvastatin 80 mg tablet (Lipitor) 80 mg PO HS 11/01/18 02/24/25 fenofibrate nanocrystallized 145 145 mg PO HS 11/01/18 02/24/25 mg tablet (Tricor) fluticasone propionate 50 2 spray intranasal DAILY 11/01/18 02/24/25 mcg/actuation nasal spray,suspension (Flonase Allergy Relief) insulin aspart U-100 100 unit/mL 14 units subcut TIDM 11/01/18 02/24/25 (3 mL) subcutaneous pen (Novolog FlexPen U-100 Insulin aspart) insulin glargine 100 unit/mL (3 30 unit subcut HS 11/01/18 02/24/25 mL) subcutaneous pen (Basaglar KwikPen U-100 Insulin) metformin 500 mg tablet 1,000 mg PO BID 11/01/18 02/24/25 mometasone-formoterol HFA 200 2 puff inhalation BID 11/01/18 02/24/25 mcg-5 mcg/actuation aerosol inhaler (Dulera) montelukast 10 mg tablet 10 mg PO HS 11/01/18 02/24/25 (Singulair) pantoprazole 40 mg tablet,delayed 40 mg PO DAILY 11/01/18 02/24/25 release (Protonix) sertraline 50 mg tablet 75 mg PO DAILY 11/01/18 02/24/25 tiotropium bromide 18 mcg capsule 1 cap inhalation DAILY 11/01/18 02/24/25 with inhalation device (Spiriva with HandiHaler) buspirone 7.5 mg tablet 7.5 mg PO 2XD 02/24/25 02/24/25 insulin glargine 100 unit/mL (3 20 unit subcut 1XD 02/24/25 02/24/25 mL) subcutaneous pen (Lantus Solostar U-100 Insulin) midodrine 5 mg tablet 5 mg PO 2XD 02/24/25 02/24/25 mirtazapine 15 mg tablet mg PO 1XD 02/24/25 trazodone 50 mg tablet 50 mg PO 1XD 02/24/25 02/24/25 Previous Rx's Medication Instructions Recorded sulfamethoxazole 800 1 tab PO BID #20 tabs 08/26/23 mg-trimethoprim 160 mg tablet (Bactrim DS) Results & Data (ED) Vital Signs Vital Signs - 24 hr 02/24/25 10:36 02/24/25 13:16 Temperature 36.3 C L Temperature Source Temporal Artery Scan Pulse Rate 91 H Pulse Rate [Apical] 75 Pulse Rhythm [Apical] Regular Pulse Strength [Apical] Normal Respiratory Rate 19 19 Respiratory Effort / Characteristics Non-Labored Spontaneous Respiratory Depth Normal Respiratory Pattern Regular Blood Pressure 132/92 Blood Pressure [Right Arm] 97/60 L Blood Pressure Mean 105 Blood Pressure Mean [Right Arm] 72 Blood Pressure Position [Right Arm] Lying Pulse Oximetry 95 96 Oxygen Delivery Method Room Air Room Air Sepsis New/Unexplained Change in Mental Status No Sepsis Action Taken by Nursing No Action Required Laboratory Data 02/24/25 10:54 02/24/25 10:54 Lab Results 02/24/25 02/24/25 Range/Units 10:54 12:03 WBC 11.65 H (4.8-10.8) K/ul RBC 4.92 (4.20-5.40) M/uL Hgb 14.7 (12.0-16.0) g/dl Hct 44.0 (37.0-47.0) % MCV 89.4 (80.0-100.0) fL MCH 29.9 (25.0-34.0) pg MCHC 33.4 (32.0-36.0) g/dL RDW Std Deviation 44.9 (36.4-46.3) fL RDW Coeff of [place] 13.8 (11.5-14.5) % Plt Count 337 (130-400) K/uL MPV 10.3 (9.4-12.4) fL Immature Gran % (Auto) 0.2 % Neut % (Auto) 59.9 % Lymph % (Auto) 31.2 % [place] % (Auto) 6.4 % Eos % (Auto) 1.6 % Baso % (Auto) 0.7 % Neut # (Auto) 6.98 H (1.40-6.50) K/uL Lymph # (Auto) 3.63 H (1.20-3.40) K/uL [place] # (Auto) 0.75 H (0.11-0.59) K/uL Eos # (Auto) 0.19 (0.00-0.50) K/uL Baso # (Auto) 0.08 (0.00-0.20) K/uL Immature Gran # (Auto) 0.02 (0.01-0.20) K/uL Sodium 136 (136-145) mmol/L Potassium 4.3 (3.5-5.1) mmol/L Chloride 104 (98-107) mmol/L Carbon Dioxide 22 (21-32) mmol/L Anion Gap 10 (3-11) BUN 15 (6-23) mg/dl Creatinine 0.83 (0.6-1.2) mg/dl Est Cr Clr Drug Dosing 66.2 ml/min eGFR 88.54 BUN/Creatinine Ratio 18.1 (10-20) Glucose 235 H (70-99(Fasting)) mg/dl Calcium 9.7 (8.6-10.3) mg/dl Total Bilirubin 0.4 (0.2-1.0) mg/dl AST 34 (13-39) U/L ALT 40 (7-52) U/L Alkaline Phosphatase 98 (34-104) U/L Total Protein 7.5 (6.0-8.3) gm/dl Albumin 4.1 (3.4-5.0) gm/dl Globulin 3.4 (2.5-4.0) gm/dl Albumin/Globulin Ratio 1.2 (0.9-2) TSH 1.800 (0.300-4.500) uIu/ml HCG, Qual Negative (Negative) Urine Color Yellow Urine Appearance Cloudy A (Clear) Urine pH 5.0 (4.5-7.5) Ur Specific [place] 1.017 (1.000-1.030) Urine Protein Negative (Negative) Urine Glucose (UA) Negative (Negative) Urine Ketones Negative (Negative) Urine Blood Negative (Negative) Urine Nitrite Negative (Negative) Urine Bilirubin Negative (Negative) Urine Urobilinogen Negative (Negative) Ur Leukocyte Esterase Trace H (Negative) Urine WBC (Auto) 0-5 (0-5) /hpf Urine RBC (Auto) 11-20 H (0-2) /hpf U Hyaline Cast (Auto) 0-2 (0-2) /lpf U Epithel Cells (Auto) >20 H (0-2) /hpf Urine Bacteria (Auto) 1+ H (None Seen) Urine Comment Salicylates < 3.0 L (3.0-30) mg/dl Urine Opiates Screen Neg (Neg) Ur Methadone, Qual Neg (Neg) Urine Fentanyl Screen Neg (Neg) Acetaminophen < 3 L (10-30) ug/ml Urine Barbiturates Neg (Neg) Ur Phencyclidine (PCP) Neg (Neg) U Amphetamin/Meth Scrn Neg (Neg) MDMA (Ecstasy) Screen Pos H (Neg) U Benzodiazepines Scrn Neg (Neg) Ur Cocaine Metabolite Neg (Neg) U Marijuana (THC) Screen Neg (Neg) Ethyl Alcohol mg/dL < 10.0 (<10.0) mg/dl SARS-CoV-2, RNA, NAAT NEGATIVE (NEGATIVE) Administered Medications Discontinued Medications Hydroxyzine HCl (Hydroxyzine Hcl 25 Mg Tab) 25 mg PO NOW STA Stop: 02/24/25 11:28 Last Admin: 02/24/25 11:36 Dose: 25 mg Documented By: AMS Discharge Plan Visit Data Chief Complaint: Mental Health Evaluation Stated Complaint: SUICIDAL THOUGHTS, ANXIETY VERY HIGH ED Provider: Pauly Muñoz Discharge Problem: Suicidal ideation, Anxiety Patient Disposition: Admitted As Inpatient Condition: Fair Discharge Instructions Interventions: ED Discharge Assessment Last Done: 02/24/25 14:47
[2025-02-24 11:36] LABS: Acetaminophen < 3 ug/ml (10-30); Salicylate < 3.0 mg/dl (3.0-30)
[2025-02-24 11:38] LABS: Thyroid Stimulating Hormone 1.8 uIu/ml (0.300-4.500)
[2025-02-24 12:23] LABS: Appearance Urine Cloudy (Clear); Bacteria Urine Automated 1+ (None Seen); Cast Urine Automated 0-2 /lpf (0-2); Epithelial Cell Urine Auto >20 /hpf (0-2); Glucose Urine UA Negative (Negative); WBC Urine Automated 0-5 /hpf (0-5)
[2025-02-24 12:52] LABS: Amphetamines+Metham, Urine Neg (Neg); MDMA (Ecstacy), Urine Pos (Neg); Marijuana, Urine Neg (Neg)
[2025-02-24] MEDS ORDERED: ACETAMINOPHEN 325 MG TAB PO PRN (15:09)
[2025-02-24] MEDS ORDERED: SODIUM CHLORIDE 0.65% NA SOLN 45 ML (OCEAN) PRN (15:09)
[2025-02-24] MEDS ORDERED: PHARMACY GLYCEMIC MGMT CONSULT PRN (15:58)
[2025-02-24] MEDS ORDERED: DEXTROSE 50% 50 ML SYRINGE IV PRN (16:30)
[2025-02-24] MEDS ORDERED: GLUCOSE 40% GEL 15 GM TUBE PO PRN (16:30)
[2025-02-24] MEDS ORDERED: GLUCOSE 10 TAB/TUBE PO PRN (16:30)
[2025-02-24] MEDS ORDERED: GLUCAGON FOR INJ 1 MG VIAL SQ PRN (16:30)
[2025-02-24] MEDS: NICOTINE 14 MG/24 HR PATCH TD SCH (17:08)
[2025-02-24] MEDS: INSULIN ASPART PER UNIT CHARGE SC SCH (17:42)
--- NOTE | 2025-02-24 18:00 | Pharmacy Report ---
Pharmacy Glycemic Short Note 2 - Date of Service February 24, 2025 - Glycemic Short BSG Results (Last 24 hours): 02/24/25 02/24/25 10:54 16:55 Glucose 235 H POC Glucose 233 H OUTPATIENT ANTIDIABETIC REGIMEN: * Lantus 20 units daily, Novolog SSI ASSESSMENT: * 44 year old admitted into [facility]. Pharmacy consulted for glycemic management. BSGs>200 on admission - will resume outpatient basal insulin for this evening. Will start novolog weight based stress 2 dosing. PLAN FOR INPATIENT GLYCEMIC CONTROL: * Hold outpatient oral diabetes medications * Basal insulin * Lantus 20 units SQ HS * Bolus insulin * NovoLog per scale ACHS or Q6hrs while NPO * Goal Range: Low 110 mg/dL - High 140 mg/dL * Correction Factor: 40 mg/dL/unit * Nutritional / Prandial insulin per carb ratio of 1 unit per 13 grams CHO consumed
[2025-02-24] MEDS: CARBOHYDRATES FOR HYPOGLYCEMIA PO PRN (20:06)
[2025-02-24] MEDS: MIDODRINE HCL 2.5 MG TAB PO SCH (20:12)
[2025-02-24] MEDS: MIRTAZAPINE TAB 15 MG TAB PO SCH (20:12)
[2025-02-24] MEDS: LANTUS PER UNIT CHARGE SQ SCH (20:41)
[2025-02-24] MEDS: REMOVE NICODERM PATCH SCH (20:42)
[2025-02-25] MEDS: INSULIN ASPART PER UNIT CHARGE SC SCH (00:07)
[2025-02-25 07:56] LABS: Hemoglobin A1C 6.7 % (4.5-5.6)
[2025-02-25] MEDS: MIDODRINE HCL 2.5 MG TAB PO SCH (08:57)
[2025-02-25] MEDS ORDERED: REMOVE NICODERM PATCH SCH (08:59)
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
[2025-02-25] MEDS: clonazePAM 0.5 MG TAB PO SCH (11:44)
[2025-02-25] MEDS: busPIRone 15 MG TAB PO SCH (20:01)
[2025-02-25] MEDS ORDERED: Nursing to Pharmacy Communication SCH (20:30)
[2025-02-25] MEDS: LANTUS PER UNIT CHARGE SQ SCH (21:08)
--- NOTE | 2025-02-26 07:59 | Pharmacy Report ---
Pharmacy Glycemic Short Note 2 - Date of Service February 26, 2025 - Glycemic Short BSG Results (Last 24 hours): 02/25/25 02/25/25 02/25/25 12:17 16:59 20:07 POC Glucose 157 H 174 H 159 H 02/26/25 08:40 POC Glucose 133 H OUTPATIENT ANTIDIABETIC REGIMEN: * Lantus 20 units daily, NovoLog SSI ASSESSMENT: 02/26 * Patient received 20 units of insulin yesterday, 5 units basal. Blood sugars at goal. * No changes at this time. 02/24 * 44 year old admitted into [facility]. Pharmacy consulted for glycemic management. BSGs>200 on admission - will resume outpatient basal insulin for this evening. Will start novolog weight based stress 2 dosing. PLAN FOR INPATIENT GLYCEMIC CONTROL: * Basal insulin * Lantus 20 units SQ HS * Bolus insulin * NovoLog per scale ACHS or Q6hrs while NPO * Goal Range: Low 110 mg/dL - High 140 mg/dL * Correction Factor: 40 mg/dL/unit * Nutritional / Prandial insulin per carb ratio of 1 unit per 20 grams CHO consumed
--- NOTE | 2025-02-26 09:00 | Psychiatric Progress Note ---
Date of Service February 26, 2025 Impression / Recommendations Impression GARFIELD AYALA is a 44-year-old woman who currently lives in [place] with her mother, step-father, and adult daughters, has a history of major depressive disorder, generalized anxiety disorder, and just discharged from inpatient stay at [facility] three days ago and was admitted on 02/24/25 14:37 on a 201 voluntary commitment for SI with plan to overdose on medications. Diagnostically consistent with major depressive disorder with anxious distress and panic disorder with agoraphobia. A: Ongoing severe depression with anxiety and panic attacks and SI. Tolerating medication changes so far, will increase Klonopin to see if this offers any symptom relief. Overall, I spent a total of 35 minutes on this case including meeting with the patient, reviewing the chart, nursing report, multidisciplinary team meeting, orders, and documentation. (1) Suicidal ideation: (2) Recurrent severe major depressive disorder with anxiety: (3) Panic disorder with agoraphobia and severe panic attacks: Plan 02/26/2025: -Increase Klonopin to 1mg daily 02/25/2025: The patient was admitted to the [facility] ([facility] mental health unit) on q15 min checks (behavioral with suicide precautions) for safety. The patient will participate in group, recreational, and milieu therapies and will be offered additional individual and family sessions as clinically appropriate. -Discontinue trazodone -Start fluoxetine 20mg daily -Increase Buspar to 15mg BID -Start Klonopin 0.5mg daily -Continue mirtazapine 15mg HS -Glycemic pharmacy consult for recommendations regarding need for and dosing for insulin -SW to explore barriers to functioning at home in recent months via family collateral and exploring options for increased support Inventory Assets Strengths: supportive relationships, willing to get treatment Needs: safety and stabilization, medication adjustment, additional coping skills, increased outpatient services Suicide Risk Level Suicide Risk Level: High-Moderate (q15 min suicide checks) (panic attacks with depression and SI but feels safe in the hospital and feels able to ask for support) Suicide Risk Level Comments: Risk Factors Assessment Male: No : Yes Do You Have Access To A Gun?: No Health Problems: Yes Mental Health Diagnoses: Yes Substance Use Disorders: No Previous Attempt: Yes Family History of Suicide: No Previous Psychiatric Hospitalization: Yes Hopelessness: Yes Protective Factors Assessment Employed: No Stable Relationships: Yes Supportive Family: Yes Interval History Identifying Information GARFIELD AYALA is a 44-year-old woman who currently lives in [place] with her mother, step-father, and adult daughters, has a history of major depressive dis order, generalized anxiety disorder, and just discharged from inpatient stay at [facility] three days ago and was admitted on 02/24/25 14:37 on a 201 voluntary commitment for SI with plan to overdose on medications. Chief Complaint "Still the same". Review of Systems Sleep Information Total Hours of Sleep: 8.5 Meal Information Percent Meal Consumed - Breakfast: 75 Percent Meal Consumed - Lunch: 100 Percent Meal Consumed - Dinner: 100 Subjective Subjective Patient was seen & assessed and interval progress reviewed with treatment team. Isolative during the day but later did attend some groups and brightened a bit while playing cards with peers. Rated mood as 2/10. Eating meals. This afternoon sitting in bed in her dark room with window shades down. Reports ongoing anxiety and depression and SI. Denies any percieved benefit from Klonopin so far. No side effects from the medication changes. Feels like she wakes up in state of panic and it persists all day. Physical Exam Psychiatric Orientation: alert and oriented x 3 Apperance: appropriately dressed and appropriately groomed Eye Contact: good eye contact Motor Behavior: no abnormal motor movements Speech: normal rate/rhythm/volume of speech Affect: + depressed affect and + anxious affect Mood: + depressed mood and + anxious mood Thought Process: + circumstantial thought process Thought Content: reality based without delusions Suicidal Thoughts: denies suicidal plan and denies suicidal intent; + reports suicidal thoughts Homicidal Thoughts: denies homicidal thoughts Hallucinations: no auditory hallucinations and no visual hallucinations Cognition: recent memory grossly intact, remote memory grossly intact, attention grossly intact and language grossly intact Estimated Intelligence: consistent with education level Insight: + fair insight Judgment: + limited judgement Vital Signs (Past 24 Hours) Last Vital Signs Temp 36.1 C L 02/26/25 06:28 Pulse 64 02/26/25 06:29 Resp 17 02/26/25 06:28 BP 101/63 02/26/25 06:29 Pulse Ox 96 02/26/25 06:28 O2 Del Method Room Air 02/26/25 06:28 Results & Data ([facility]) Laboratory Results Laboratory Results - last 24 hr 02/25/25 02/25/25 02/25/25 12:17 16:59 20:07 POC Glucose 157 H 174 H 159 H 02/26/25 08:40 POC Glucose 133 H Current Inpatient Medications Current Inpatient Medications: Current Inpatient Medications Acetaminophen (Acetaminophen 325 Mg Tab) 650 mg PO Q4H PRN PRN Reason: Headache or Minor Fever Stop: 03/26/25 15:08 Buspirone HCl (Buspirone 15 Mg Tab) 15 mg PO QAM [facility] Stop: 03/28/25 08:59 Buspirone HCl (Buspirone 15 Mg Tab) 15 mg PO 2000 [facility] Stop: 03/27/25 19:59 Last Admin: 02/25/25 20:01 Dose: 15 mg Clonazepam (Clonazepam 0.5 Mg Tab) 0.5 mg PO DAILY [facility] Stop: 03/27/25 11:29 Last Admin: 02/25/25 11:44 Dose: 0.5 mg Dextrose (Dextrose 50% 50 Ml Syringe) 25 - 50 ml IV UD PRN; Protocol PRN Reason: Hypoglycemia Protocol Stop: 03/26/25 16:29 Fluoxetine HCl (Fluoxetine Hcl 20 Mg Cap) 20 mg PO QAM [facility] Stop: 03/27/25 11:29 Last Admin: 02/25/25 11:41 Dose: 20 mg Glucagon (Glucagon For Inj 1 Mg Vial) 1 mg SQ UD PRN; Protocol PRN Reason: Hypoglycemia Protocol Stop: 03/26/25 16:29 Glucose (Glucose 40% Gel 15 Gm Tube) 15 - 30 gm PO UD PRN; Protocol PRN Reason: Hypoglycemia Protocol Stop: 03/26/25 16:29 Glucose (Glucose 10 Tab/Tube) 4 - 8 tab PO UD PRN; Protocol PRN Reason: Hypoglycemia Protocol Stop: 03/26/25 16:29 Hydroxyzine HCl (Hydroxyzine Hcl 25 Mg Tab) 50 mg PO HSZ PRN PRN Reason: Insomnia Stop: 03/26/25 15:08 Hydroxyzine HCl (Hydroxyzine Hcl 25 Mg Tab) 25 mg PO Q4H PRN PRN Reason: Anxiety Stop: 03/26/25 15:08 Insulin Aspart (Insulin Aspart Per Unit Charge) 0 units SC ACHS [facility] Stop: 03/26/25 17:14 Last Admin: 02/25/25 21:06 Dose: 2 units Insulin Glargine (Lantus Per Unit Charge) 0 units SQ HS [facility]; Protocol Stop: 03/27/25 21:59 Last Admin: 02/25/25 21:08 Dose: 5 units Midodrine (Midodrine Hcl 2.5 Mg Tab) 5 mg PO QAM [facility] Stop: 03/27/25 08:59 Last Admin: 02/25/25 08:57 Dose: 5 mg Midodrine (Midodrine Hcl 2.5 Mg Tab) 5 mg PO 2000 [facility] Stop: 03/26/25 19:59 Last Admin: 02/25/25 20:02 Dose: 5 mg Mirtazapine (Mirtazapine Tab 15 Mg Tab) 15 mg PO 1999 [facility] Stop: 03/26/25 19:59 Last Admin: 02/25/25 20:02 Dose: 15 mg Miscellaneous (Carbohydrates For Hypoglycemia ) 15 - 30 gm PO UD PRN PRN Reason: Hypoglycemia Treatment Stop: 03/26/25 16:29 Last Admin: 02/24/25 20:06 Dose: 15 gm Miscellaneous (Remove Nicoderm Patch) 1 each N/A DAILY@2100 [facility] Stop: 03/26/25 20:59 Last Admin: 02/25/25 20:14 Dose: 1 each Miscellaneous Information (Pharmacy Glycemic Mgmt Consult) 1 each N/A UD PRN; Protocol PRN Reason: Consult Stop: 03/26/25 15:57 Nicotine (Nicotine 14 Mg/24 Hr Patch) 1 patch TD QA [facility] Stop: 03/26/25 16:59 Last Admin: 02/25/25 08:58 Dose: 1 patch Sodium Chloride (Sodium Chloride 0.65% Na Soln 45 Ml ([place]cho)) 1 - 2 sprays NA PRN PRN PRN Reason: Nasal Dryness/Congestion Stop: 03/26/25 15:08 Mental Health & Subst Abuse Tx Psychiatrist Date Of Appointment With Psychiatric Provider: 02/27/25 Therapist Name of Therapist: Elisa (intake scheduled) Date of Therapist Appointment: 02/28/25 Post Discharge Appointments Primary Care Physician Name Of Family Doctor/PCP: Dr. Tipton/ [place]
[2025-02-26] MEDS: busPIRone 15 MG TAB PO SCH (09:02)
--- NOTE | 2025-02-27 08:51 | Psychiatric Progress Note ---
Date of Service February 27, 2025 Impression / Recommendations Impression GARFIELD AYALA is a 44-year-old woman who currently lives in [place] with her mother, step-father, and adult daughters, has a history of major depressive disorder, generalized anxiety disorder, and just discharged from inpatient stay at [facility] three days ago and was admitted on 02/24/25 14:37 on a 201 voluntary commitment for SI with plan to overdose on medications. Diagnostically consistent with major depressive disorder with anxious distress and panic disorder with agoraphobia. A: Ongoing severe depression with anxiety and panic attacks and SI. Reports sleep issues despite being recorded as sleeping well. No perceived benefit from Klonopon. Discussed medication treatment options in detail. Discussed risks, benefits and alternatives. Patient would like to start and consented to olanzapine for off-label use for depression augmentation, anxiety, insomnia. Reviewed side effects including but not limited to: movement (TD, NMS), cardiac (QTc prolongation), and metabolic (stroke, insulin resistance) and necessity for fasting lipid and glucose labwork and AIMS done with score of 0. Overall, I spent a total of 50 minutes on this case including meeting with the patient, reviewing the chart, nursing report, multidisciplinary team meeting, orders, and documentation. (1) Suicidal ideation: (2) Recurrent severe major depressive disorder with anxiety: (3) Panic disorder with agoraphobia and severe panic attacks: (4) Insomnia: Plan 02/27/2025: -Start olanzapine 2.5mg HS -fasting lipid panel, HbA1c, Vit D, Vit B12, ESR, CRP tomorrow AM 02/26/2025: -Increase Klonopin to 1mg daily 02/25/2025: The patient was admitted to the [facility] ([facility] health unit) on q15 min checks (behavioral with suicide precautions) for safety. The patient will participate in group, recreational, and milieu therapies and will be offered additional individual and family sessions as clinically appropriate. -Discontinue trazodone -Start fluoxetine 20mg daily -Increase Buspar to 15mg BID -Start Klonopin 0.5mg daily -Continue mirtazapine 15mg HS -Glycemic pharmacy consult for recommendations regarding need for and dosing for insulin -SW to explore barriers to functioning at home in recent months via family collateral and exploring options for increased support Inventory Assets Strengths: supportive relationships, willing to get treatment Needs: safety and stabilization, medication adjustment, additional coping skills, increased outpatient services Suicide Risk Level Suicide Risk Level: High-Moderate (q15 min suicide checks) (panic attacks with depression and SI but feels safe in the hospital and feels able to ask for support) Suicide Risk Level Comments: Risk Factors Assessment Male: No : Yes Do You Have Access To A Gun?: No Health Problems: Yes Mental Health Diagnoses: Yes Substance Use Disorders: No Previous Attempt: Yes Family History of Suicide: No Previous Psychiatric Hospitalization: Yes Hopelessness: Yes Protective Factors Assessment Employed: No Stable Relationships: Yes Supportive Family: Yes Interval History Identifying Information GARFIELD AYALA is a 44-year-old woman who currently lives in [place] with her mother, step-father, and adult daughters, has a history of major depressive disorder, generalized anxiety disorder, and just discharged from inpatient stay at [facility] three days ago and was admitted on 02/24/25 14:37 on a 201 voluntary commitment for SI with plan to overdose on medications. Chief Complaint "The same". Review of Systems Sleep Information Total Hours of Sleep: 8.75 Meal Information Percent Meal Consumed - Breakfast: 75 Percent Meal Consumed - Lunch: 75 Percent Meal Consumed - Dinner: 75 Subjective Subjective Patient was seen & assessed and interval progress reviewed with nursing and social work. Attending groups, played some games with peers. Rated mood last night as 3 and anxious. Today reports her mood is the "same". Hasn't noticed any benefit from higher dose of Klonopin. No medication side effects. States she slept very poorly. Endorses ongoing depression with SI and total lack of interest. Asks me about ketamine and TMS which we discuss. Physical Exam Psychiatric Orientation: alert and oriented x 3 Apperance: appropriately dressed and appropriately groomed Eye Contact: good eye contact Motor Behavior: no abnormal motor movements Speech: normal rate/rhythm/volume of speech Affect: + depressed affect and + anxious affect Mood: + depressed mood and + anxious mood Thought Process: + circumstantial thought process Thought Content: reality based without delusions Suicidal Thoughts: denies suicidal plan and denies suicidal intent; + reports suicidal thoughts Homicidal Thoughts: denies homicidal thoughts Hallucinations: no auditory hallucinations and no visual hallucinations Cognition: recent memory grossly intact, remote memory grossly intact, attention grossly intact and language grossly intact Estimated Intelligence: consistent with education level Insight: + fair insight Judgment: + limited judgement Vital Signs (Past 24 Hours) Last Vital Signs Temp 35.4 C L 02/27/25 06:00 Pulse 63 02/27/25 06:01 Resp 18 02/27/25 06:00 BP 93/61 L 02/27/25 06:01 Pulse Ox 96 02/27/25 06:00 O2 Del Method Room Air 02/27/25 06:00 Results & Data ([facility]) Laboratory Results Laboratory Results - last 24 hr 02/26/25 02/26/25 02/26/25 12:50 16:58 20:29 POC Glucose 139 H 149 H 138 H 02/27/25 08:41 POC Glucose 140 H Current Inpatient Medications Current Inpatient Medications: Current Inpatient Medications Acetaminophen (Acetaminophen 325 Mg Tab) 650 mg PO Q4H PRN PRN Reason: Headache or Minor Fever Stop: 03/26/25 15:08 Buspirone HCl (Buspirone 15 Mg Tab) 15 mg PO QAM [facility] Stop: 03/28/25 08:59 Last Admin: 02/26/25 09:02 Dose: 15 mg Buspirone HCl (Buspirone 15 Mg Tab) 15 mg PO 2000 [facility] Stop: 03/27/25 19:59 Last Admin: 02/26/25 20:28 Dose: 15 mg Clonazepam (Clonazepam 1 Mg Tab) 1 mg PO DAILY [facility] Stop: 03/29/25 08:59 Dextrose (Dextrose 50% 50 Ml Syringe) 25 - 50 ml IV UD PRN; Protocol PRN Reason: Hypoglycemia Protocol Stop: 03/26/25 16:29 Fluoxetine HCl (Fluoxetine Hcl 20 Mg Cap) 20 mg PO QAM [facility] Stop: 03/27/25 11:29 Last Admin: 02/26/25 09:02 Dose: 20 mg Glucagon (Glucagon For Inj 1 Mg Vial) 1 mg SQ UD PRN; Protocol PRN Reason: Hypoglycemia Protocol Stop: 03/26/25 16:29 Glucose (Glucose 40% Gel 15 Gm Tube) 15 - 30 gm PO UD PRN; Protocol PRN Reason: Hypoglycemia Protocol Stop: 03/26/25 16:29 Glucose (Glucose 10 Tab/Tube) 4 - 8 tab PO UD PRN; Protocol PRN Reason: Hypoglycemia Protocol Stop: 03/26/25 16:29 Hydroxyzine HCl (Hydroxyzine Hcl 25 Mg Tab) 50 mg PO HSZ PRN PRN Reason: Insomnia Stop: 03/26/25 15:08 Hydroxyzine HCl (Hydroxyzine Hcl 25 Mg Tab) 25 mg PO Q4H PRN PRN Reason: Anxiety Stop: 03/26/25 15:08 Insulin Aspart (Insulin Aspart Per Unit Charge) 0 units SC ACHS [facility] Stop: 03/26/25 17:14 Last Admin: 02/26/25 20:42 Dose: 1 units Insulin Glargine (Lantus Per Unit Charge) 0 units SQ HS [facility]; Protocol Stop: 03/27/25 21:59 Last Admin: 02/26/25 20:31 Dose: Not Given Midodrine (Midodrine Hcl 2.5 Mg Tab) 5 mg PO QA [facility] Stop: 03/27/25 08:59 Last Admin: 02/26/25 09:03 Dose: 5 mg Midodrine (Midodrine Hcl 2.5 Mg Tab) 5 mg PO 1999 [facility] Stop: 03/26/25 19:59 Last Admin: 02/26/25 20:27 Dose: 5 mg Mirtazapine (Mirtazapine Tab 15 Mg Tab) 15 mg PO 1999 [facility] Stop: 03/26/25 19:59 Last Admin: 02/26/25 20:28 Dose: 15 mg Miscellaneous (Carbohydrates For Hypoglycemia ) 15 - 30 gm PO UD PRN PRN Reason: Hypoglycemia Treatment Stop: 03/26/25 16:29 Last Admin: 02/24/25 20:06 Dose: 15 gm Miscellaneous (Remove Nicoderm Patch) 1 each N/A DAILY@2100 [facility] Stop: 03/26/25 20:59 Last Admin: 02/26/25 20:46 Dose: 1 each Miscellaneous Information (Pharmacy Glycemic Mgmt Consult) 1 each N/A UD PRN; Protocol PRN Reason: Consult Stop: 03/26/25 15:57 Nicotine (Nicotine 14 Mg/24 Hr Patch) 1 patch TD QA [facility] Stop: 03/26/25 16:59 Last Admin: 02/26/25 09:14 Dose: 1 patch Sodium Chloride (Sodium Chloride 0.65% Na Soln 45 Ml ([place])) 1 - 2 sprays NA PRN PRN PRN Reason: Nasal Dryness/Congestion Stop: 03/26/25 15:08 Mental Health & Subst Abuse Tx Psychiatrist Date Of Appointment With Psychiatric Provider: 02/27/25 Therapist Name of Therapist: Elisa (intake scheduled) Date of Therapist Appointment: 02/28/25 Post Discharge Appointments Primary Care Physician Name Of Family Doctor/PCP: Dr. Tipton/ [place]
[2025-02-27] MEDS: clonazePAM 1 MG TAB PO SCH (09:05)
[2025-02-27] MEDS: OLANZAPINE 2.5 MG TAB PO SCH (20:18)
[2025-02-27] MEDS: LANTUS PER UNIT CHARGE SQ SCH (21:06)
[2025-02-28 08:01] LABS: Cholesterol 242 mg/dl (0-200); HDL Cholesterol 41 mg/dl; Triglycerides 272 mg/dl (0-150)
--- NOTE | 2025-02-28 08:59 | Psychiatric Progress Note ---
Date of Service February 28, 2025 Impression / Recommendations Impression GARFIELD AYALA is a 44-year-old woman who currently lives in [place] with her mother, step-father, and adult daughters, has a history of major depressive disorder, generalized anxiety disorder, and just discharged from inpatient stay at [facility] three days ago and was admitted on 02/24/25 14:37 on a 201 voluntary commitment for SI with plan to overdose on medications. Diagnostically consistent with major depressive disorder with anxious distress and panic disorder with agoraphobia. A: Ongoing severe depression with anxiety and SI. Reports ongoing sleep issues. Given limited benefit from Klonopin will taper this and increase olanzapine. Reviewed labwork notable for elevated HbA1c, cholesterol, triglycerides. Also for normal B12, normal Vit D, normal CRP. ESR slightly elevated but not to the point where further workup is deemed necessary given absence of any other physical complaints of inflammation. She understands risks of olanzapine further worsening lipid panel and glucose and would like to continue with this. Overall, I spent a total of 36 minutes on this case including meeting with the patient, reviewing the chart, nursing report, multidisciplinary team meeting, orders, and documentation. (1) Suicidal ideation: (2) Recurrent severe major depressive disorder with anxiety: (3) Panic disorder with agoraphobia and severe panic attacks: (4) Insomnia: Plan 02/28/2025: -Taper Klonopin to 0.5mg daily -Increase fluoxetine to 40mg daily -Increase olanzapine to 5mg HS 02/27/2025: -Start olanzapine 2.5mg HS -fasting lipid panel, HbA1c, Vit D, Vit B12, ESR, CRP tomorrow AM 02/26/2025: -Increase Klonopin to 1mg daily 02/25/2025: The patient was admitted to the [facility] ([facility] mental health unit) on q15 min checks (behavioral with suicide precautions) for safety. The patient will participate in group, recreational, and milieu therapies and will be offered additional individual and family sessions as clinically appropriate. -Discontinue trazodone -Start fluoxetine 20mg daily -Increase Buspar to 15mg BID -Start Klonopin 0.5mg daily -Continue mirtazapine 15mg HS -Glycemic pharmacy consult for recommendations regarding need for and dosing for insulin -SW to explore barriers to functioning at home in recent months via family collateral and exploring options for increased support Inventory Assets Strengths: supportive relationships, willing to get treatment Needs: safety and stabilization, medication adjustment, additional coping skills, increased outpatient services Suicide Risk Level Suicide Risk Level: High-Moderate (q15 min suicide checks) (panic attacks with depression and SI but feels safe in the hospital and feels able to ask for support) Suicide Risk Level Comments: Risk Factors Assessment Male: No : Yes Do You Have Access To A Gun?: No Health Problems: Yes Mental Health Diagnoses: Yes Substance Use Disorders: No Previous Attempt: Yes Family History of Suicide: No Previous Psychiatric Hospitalization: Yes Hopelessness: Yes Protective Factors Assessment Employed: No Stable Relationships: Yes Supportive Family: Yes Interval History Identifying Information GARFIELD AYALA is a 44-year-old woman who currently lives in [place] with her mother, step-father, and adult daughters, has a history of major depressive disorder, generalized anxiety disorder, and just discharged from inpatient stay at [facility] three days ago and was admitted on 02/24/25 14:37 on a 201 voluntary commitment for SI with plan to overdose on medications. Chief Complaint "Not too good, I'm suffering". Review of Systems Sleep Information Total Hours of Sleep: 8.5 Meal Information Percent Meal Consumed - Breakfast: 100 Percent Meal Consumed - Lunch: 100 Percent Meal Consumed - Dinner: 100 Subjective Subjective Patient was seen & assessed and interval progress reviewed with nursing and social work. Appeared very flat afternoon except when she briefly used the exercise group with encouragement. Did not attend many groups yesterday. Today reports not being able to fall or stay asleep despite medication addition of olanzapine. Denies any medication side effects. Has not noticed any relief from Klonopin. Signed ROIs for recent hospitalizations. Ongoing SI. Physical Exam Psychiatric Orientation: alert and oriented x 3 Apperance: appropriately dressed and + disheveled Eye Contact: good eye contact Motor Behavior: no abnormal motor movements Speech: normal rate/rhythm/volume of speech Affect: + depressed affect and + anxious affect Mood: + depressed mood and + anxious mood Thought Process: + circumstantial thought process Thought Content: reality based without delusions Suicidal Thoughts: denies suicidal plan and denies suicidal intent; + reports suicidal thoughts Homicidal Thoughts: denies homicidal thoughts Hallucinations: no auditory hallucinations and no visual hallucinations Cognition: recent memory grossly intact, remote memory grossly intact, attention grossly intact and language grossly intact Estimated Intelligence: consistent with education level Insight: + fair insight Judgment: + limited judgement Vital Signs (Past 24 Hours) Last Vital Signs Temp 36.5 C 02/28/25 06:24 Pulse 64 02/28/25 06:25 Resp 16 02/28/25 06:24 BP 94/63 L 02/28/25 06:25 Pulse Ox 96 02/27/25 06:00 O2 Del Method Room Air 02/27/25 06:00 Results & Data ([facility]) Laboratory Results Laboratory Results - last 24 hr 02/27/25 02/27/25 02/27/25 12:35 17:00 20:12 ESR POC Glucose 128 H 103 H 150 H C-Reactive Protein Triglycerides Cholesterol LDL Cholesterol, Calc VLDL Cholesterol, Calc HDL Cholesterol Cholesterol/HDL Ratio Vitamin B12 25-OH Vitamin D Total 02/28/25 02/28/25 07:18 08:04 ESR 24 H POC Glucose 147 H C-Reactive Protein < 0.50 Triglycerides 272 H Cholesterol 242 H LDL Cholesterol, Calc 147 VLDL Cholesterol, Calc 54 H HDL Cholesterol 41 Cholesterol/HDL Ratio 5.9 H Vitamin B12 571 25-OH Vitamin D Total 30.9 Current Inpatient Medications Current Inpatient Medications: Current Inpatient Medications Acetaminophen (Acetaminophen 325 Mg Tab) 650 mg PO Q4H PRN PRN Reason: Headache or Minor Fever Stop: 03/26/25 15:08 Buspirone HCl (Buspirone 15 Mg Tab) 15 mg PO QAM [facility] Stop: 03/28/25 08:59 Last Admin: 02/27/25 09:05 Dose: 15 mg Buspirone HCl (Buspirone 15 Mg Tab) 15 mg PO 2000 [facility] Stop: 03/27/25 19:59 Last Admin: 02/27/25 20:01 Dose: 15 mg Clonazepam (Clonazepam 1 Mg Tab) 1 mg PO DAILY [facility] Stop: 03/29/25 08:59 Last Admin: 02/27/25 09:05 Dose: 1 mg Dextrose (Dextrose 50% 50 Ml Syringe) 25 - 50 ml IV UD PRN; Protocol PRN Reason: Hypoglycemia Protocol Stop: 03/26/25 16:29 Fluoxetine HCl (Fluoxetine Hcl 20 Mg Cap) 20 mg PO QAM [facility] Stop: 03/27/25 11:29 Last Admin: 02/27/25 09:05 Dose: 20 mg Glucagon (Glucagon For Inj 1 Mg Vial) 1 mg SQ UD PRN; Protocol PRN Reason: Hypoglycemia Protocol Stop: 03/26/25 16:29 Glucose (Glucose 40% Gel 15 Gm Tube) 15 - 30 gm PO UD PRN; Protocol PRN Reason: Hypoglycemia Protocol Stop: 03/26/25 16:29 Glucose (Glucose 10 Tab/Tube) 4 - 8 tab PO UD PRN; Protocol PRN Reason: Hypoglycemia Protocol Stop: 03/26/25 16:29 Hydroxyzine HCl (Hydroxyzine Hcl 25 Mg Tab) 50 mg PO HSZ PRN PRN Reason: Insomnia Stop: 03/26/25 15:08 Hydroxyzine HCl (Hydroxyzine Hcl 25 Mg Tab) 25 mg PO Q4H PRN PRN Reason: Anxiety Stop: 03/26/25 15:08 Insulin Aspart (Insulin Aspart Per Unit Charge) 0 units SC ACHS [facility] Stop: 03/26/25 17:14 Last Admin: 02/27/25 20:18 Dose: 2 units Insulin Glargine (Lantus Per Unit Charge) 5 units SQ HS [facility] Stop: 03/27/25 21:59 Last Admin: 02/27/25 21:06 Dose: 5 units Midodrine (Midodrine Hcl 2.5 Mg Tab) 5 mg PO [facility] Stop: 03/27/25 08:59 Last Admin: 02/27/25 09:05 Dose: 5 mg Midodrine (Midodrine Hcl 2.5 Mg Tab) 5 mg PO 1999 [facility] Stop: 03/26/25 19:59 Last Admin: 02/27/25 20:00 Dose: 5 mg Mirtazapine (Mirtazapine Tab 15 Mg Tab) 15 mg PO 1999 [facility] Stop: 03/26/25 19:59 Last Admin: 02/27/25 20:01 Dose: 15 mg Miscellaneous (Carbohydrates For Hypoglycemia ) 15 - 30 gm PO UD PRN PRN Reason: Hypoglycemia Treatment Stop: 03/26/25 16:29 Last Admin: 02/24/25 20:06 Dose: 15 gm Miscellaneous (Remove Nicoderm Patch) 1 each N/A DAILY@2100 [facility] Stop: 03/26/25 20:59 Last Admin: 02/27/25 20:25 Dose: 1 each Miscellaneous Information (Pharmacy Glycemic Mgmt Consult) 1 each N/A UD PRN; Protocol PRN Reason: Consult Stop: 03/26/25 15:57 Nicotine (Nicotine 14 Mg/24 Hr Patch) 1 patch TD QAM [facility] Stop: 03/26/25 16:59 Last Admin: 02/27/25 09:15 Dose: 1 patch Olanzapine (Olanzapine 2.5 Mg Tab) 2.5 mg PO HS [facility] Stop: 03/29/25 21:59 Last Admin: 02/27/25 20:18 Dose: 2.5 mg Sodium Chloride (Sodium Chloride 0.65% Na Soln 45 Ml ([place])) 1 - 2 sprays NA PRN PRN PRN Reason: Nasal Dryness/Congestion Stop: 03/26/25 15:08 Mental Health & Subst Abuse Tx Psychiatrist Date Of Appointment With Psychiatric Provider: 02/27/25 Therapist Name of Therapist: lEisa (intake scheduled) Date of Therapist Appointment: 02/28/25 Post Discharge Appointments Primary Care Physician Name Of Family Doctor/PCP: Dr. Tipton/ [place]
--- NOTE | 2025-02-28 09:19 | Pharmacy Report ---
Pharmacy Glycemic Short Note 2 - Date of Service February 28, 2025 - Glycemic Short BSG Results (Last 24 hours): 02/27/25 02/27/25 02/27/25 12:35 17:00 20:12 POC Glucose 128 H 103 H 150 H 02/28/25 08:04 POC Glucose 147 H OUTPATIENT ANTIDIABETIC REGIMEN: * Lantus 20 units daily, NovoLog SSI HbA1c: 6.7% (02/25/25) ASSESSMENT: 02/28/25: * Blood sugars remain well-controlled, ranging 103-150 mg/dL yesterday * Receiving ~10-20 units of insulin/day * Do not anticipate any changes to glycemic regimen today 02/26 * Patient received 20 units of insulin yesterday, 5 units basal. Blood sugars at goal. * No changes at this time. 02/24 * 44 year old admitted into [facility]. Pharmacy consulted for glycemic management. BSGs>200 on admission - will resume outpatient basal insulin for this evening. Will start novolog weight based stress 2 dosing. PLAN FOR INPATIENT GLYCEMIC CONTROL: * Basal insulin * Lantus 5 units SQ HS * Bolus insulin * NovoLog per scale ACHS or Q6hrs while NPO * Goal Range: Low 110 mg/dL - High 140 mg/dL * Correction Factor: 40 mg/dL/unit * Nutritional / Prandial insulin per carb ratio of 1 unit per 20 grams CHO consumed
[2025-03-01] MEDS: clonazePAM 0.5 MG TAB PO SCH (08:54)
--- NOTE | 2025-03-01 08:54 | Psychiatric Progress Note ---
Date of Service March 01, 2025 Impression / Recommendations Impression GARFIELD AYALA is a 44-year-old woman who currently lives in [place] with her mother, step-father, and adult daughters, has a history of major depressive disorder, generalized anxiety disorder, and just discharged from inpatient stay at [facility] three days ago and was admitted on 02/24/25 14:37 on a 201 voluntary commitment for SI with plan to overdose on medications. Diagnostically consistent with major depressive disorder with anxious distress and panic disorder with agoraphobia. A: Ongoing severe depression with her report of subjective internal anxiety and SI. Reamins at elevated risk of suicide due to level of hopelessness and helplessness. Ongoing subjective sense of poor sleep despite observation of excessive somnolence. 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 No observed panic attacks to date and has been able to tolerate being around peers which lessens suspicion for agoraphobic due to anxiety rather seems driven by depression and lack of motivation. Discussed medication treatment options in detail. Discussed risks, benefits and alternatives. Patient would like to start and consented to Wellbutrin for MDD.Reviewed side effects including but not limited to: increased anxiety, insomnia, decreased appetite, cardiac changes. Given this will discontinue Klonopin and olanzapine. Starting Wellbutrin to ta rget low motivation, poor concentration, low energy and excessive somnolence during the day. Also discussed sleep hygiene and non-pharmacologic interventions including sunlight exposure (especially early in the morning), exercise and avoiding naps/being in bed during the day. Overall, I spent a total of 35 minutes on this case including meeting with the patient, reviewing the chart, nursing report, multidisciplinary team meeting, orders, and documentation. (1) Suicidal ideation: (2) Recurrent severe major depressive disorder with anxiety: (3) Panic disorder with agoraphobia and severe panic attacks: (4) Insomnia: Plan 03/01/2025: -Discontinue Klonopin -Discontinue olanzapine -Start Wellbutrin XL 150mg tomorrow AM 02/28/2025: -Taper Klonopin to 0.5mg daily -Increase fluoxetine to 40mg daily -Increase olanzapine to 5mg HS 02/27/2025: -Start olanzapine 2.5mg HS -fasting lipid panel, HbA1c, Vit D, Vit B12, ESR, CRP tomorrow AM 02/26/2025: -Increase Klonopin to 1mg daily 02/25/2025: The patient was admitted to the [facility] ([facility] inpatient mental health unit) on q15 min checks (behavioral with suicide precautions) for safety. The patient will participate in group, recreational, and milieu therapies and will be offered additional individual and family sessions as clinically appropriate. -Discontinue trazodone -Start fluoxetine 20mg daily -Increase Buspar to 15mg BID -Start Klonopin 0.5mg daily -Continue mirtazapine 15mg HS -Glycemic pharmacy consult for recommendations regarding need for and dosing for insulin -SW to explore barriers to functioning at home in recent months via family collateral and exploring options for increased support Inventory Assets Strengths: supportive relationships, willing to get treatment Needs: safety and stabilization, medication adjustment, additional coping skills, increased outpatient services Suicide Risk Level Suicide Risk Level: High-Moderate (q15 min suicide checks) (depression and SI but feels safe in the hospital and feels able to ask for support) Suicide Risk Level Comments: Risk Factors Assessment Male: No : Yes Do You Have Access To A Gun?: No Health Problems: Yes Mental Health Diagnoses: Yes Substance Use Disorders: No Previous Attempt: Yes Family History of Suicide: No Previous Psychiatric Hospitalization: Yes Hopelessness: Yes Protective Factors Assessment Employed: No Stable Relationships: Yes Supportive Family: Yes Interval History Identifying Information GARFIELD AYALA is a 44-year-old woman who currently lives in [place] with her mother, step-father, and adult daughters, has a history of major depressive disorder, generalized anxiety disorder, and just discharged from inpatient stay at [facility] three days ago and was admitted on 02/24/25 14:37 on a 201 voluntary commitment for SI with plan to overdose on medications. Chief Complaint "I don't feel good at all". Review of Systems Sleep Information Total Hours of Sleep: 8.75 Meal Information Percent Meal Consumed - Breakfast: 100 Percent Meal Consumed - Lunch: 85 Percent Meal Consumed - Dinner: 100 Subjective Subjective Patient was seen & assessed and interval progress reviewed with nursing and social work. Attended groups. Struggled to come up with coping skills when doing safety plan as she feels nothing is helpful or works. Sleeping during the day at times. Showered yesterday. Eating well. Today reports ongoing poor sleep overnight. When I point out nursing documentation of sleep overnight and napping yesterday she states she had a lot of awakenings but agrees she did sleep at times. Ongoing depression with poor motivation. Encouraged increased sunlight exposure, exercising in the AM, ongoing group attendance and avoiding any daytime naps which she agreeable to trying. She wonders about residential mental health programs, reviewed that our team knows of no such options in [place] or elsewhere that [place]. Seems that private pay would also not be a financially feasible option. Physical Exam Psychiatric Orientation: alert and oriented x 3 Apperance: appropriately dressed and + disheveled Eye Contact: good eye contact Motor Behavior: no abnormal motor movements Speech: normal rate/rhythm/volume of speech Affect: + depressed affect and + flat affect Mood: + depressed mood and + anxious mood Thought Process: + circumstantial thought process Thought Content: reality based without delusions Suicidal Thoughts: denies suicidal plan and denies suicidal intent; + reports suicidal thoughts Homicidal Thoughts: denies homicidal thoughts Hallucinations: no auditory hallucinations and no visual hallucinations Cognition: recent memory grossly intact, remote memory grossly intact, attention grossly intact and language grossly intact Estimated Intelligence: consistent with education level Insight: + limited insight Judgment: + limited judgement Vital Signs (Past 24 Hours) Last Vital Signs Temp 35.8 C L 03/01/25 06:30 Pulse 58 L 03/01/25 06:30 Resp 18 03/01/25 06:30 BP 105/62 03/01/25 06:30 Pulse Ox 97 03/01/25 06:30 O2 Del Method Room Air 03/01/25 06:30 Results & Data ([facility]) Laboratory Results Laboratory Results - last 24 hr 02/28/25 02/28/25 02/28/25 12:11 16:56 20:17 POC Glucose 150 H 150 H 155 H 03/01/25 08:17 POC Glucose 146 H Current Inpatient Medications Current Inpatient Medications: Current Inpatient Medications Acetaminophen (Acetaminophen 325 Mg Tab) 650 mg PO Q4H PRN PRN Reason: Headache or Minor Fever Stop: 03/26/25 15:08 Buspirone HCl (Buspirone 15 Mg Tab) 15 mg PO QA [facility] Stop: 03/28/25 08:59 Last Admin: 02/28/25 08:58 Dose: 15 mg Buspirone HCl (Buspirone 15 Mg Tab) 15 mg PO 1999 [facility] Stop: 03/27/25 19:59 Last Admin: 02/28/25 20:20 Dose: 15 mg Clonazepam (Clonazepam 0.5 Mg Tab) 0.5 mg PO DAILY [facility] Stop: 03/31/25 08:59 Dextrose (Dextrose 50% 50 Ml Syringe) 25 - 50 ml IV UD PRN; Protocol PRN Reason: Hypoglycemia Protocol Stop: 03/26/25 16:29 Fluoxetine HCl (Fluoxetine Hcl 20 Mg Cap) 40 mg PO QAM [facility] Stop: 03/31/25 08:59 Glucagon (Glucagon For Inj 1 Mg Vial) 1 mg SQ UD PRN; Protocol PRN Reason: Hypoglycemia Protocol Stop: 03/26/25 16:29 Glucose (Glucose 40% Gel 15 Gm Tube) 15 - 30 gm PO UD PRN; Protocol PRN Reason: Hypoglycemia Protocol Stop: 03/26/25 16:29 Glucose (Glucose 10 Tab/Tube) 4 - 8 tab PO UD PRN; Protocol PRN Reason: Hypoglycemia Protocol Stop: 03/26/25 16:29 Hydroxyzine HCl (Hydroxyzine Hcl 25 Mg Tab) 50 mg PO HSZ PRN PRN Reason: Insomnia Stop: 03/26/25 15:08 Hydroxyzine HCl (Hydroxyzine Hcl 25 Mg Tab) 25 mg PO Q4H PRN PRN Reason: Anxiety Stop: 03/26/25 15:08 Insulin Aspart (Insulin Aspart Per Unit Charge) 0 units SC [facility] Stop: 03/26/25 17:14 Last Admin: 02/28/25 20:42 Dose: 2 units Insulin Glargine (Lantus Per Unit Charge) 5 units SQ HS [facility] Stop: 03/27/25 21:59 Last Admin: 02/28/25 20:42 Dose: 5 units Midodrine (Midodrine Hcl 2.5 Mg Tab) 5 mg PO QAM [facility] Stop: 03/27/25 08:59 Last Admin: 02/28/25 08:58 Dose: 5 mg Midodrine (Midodrine Hcl 2.5 Mg Tab) 5 mg PO 1999 [facility] Stop: 03/26/25 19:59 Last Admin: 02/28/25 20:21 Dose: 5 mg Mirtazapine (Mirtazapine Tab 15 Mg Tab) 15 mg PO 1999 [facility] Stop: 03/26/25 19:59 Last Admin: 02/28/25 20:20 Dose: 15 mg Miscellaneous (Carbohydrates For Hypoglycemia ) 15 - 30 gm PO UD PRN PRN Reason: Hypoglycemia Treatment Stop: 03/26/25 16:29 Last Admin: 02/24/25 20:06 Dose: 15 gm Miscellaneous (Remove Nicoderm Patch) 1 each N/A DAILY@2100 [facility] Stop: 03/26/25 20:59 Last Admin: 02/28/25 20:43 Dose: 1 each Miscellaneous Information (Pharmacy Glycemic Mgmt Consult) 1 each N/A UD PRN; Protocol PRN Reason: Consult Stop: 03/26/25 15:57 Nicotine (Nicotine 14 Mg/24 Hr Patch) 1 patch TD QAM [facility] Stop: 03/26/25 16:59 Last Admin: 02/28/25 08:59 Dose: 1 patch Olanzapine (Olanzapine 5 Mg Tablet) 5 mg PO HS [facility] Stop: 03/30/25 21:59 Last Admin: 02/28/25 20:20 Dose: 5 mg Sodium Chloride (Sodium Chloride 0.65% Na Soln 45 Ml ([place])) 1 - 2 sprays NA PRN PRN PRN Reason: Nasal Dryness/Congestion Stop: 03/26/25 15:08 Mental Health & Subst Abuse Tx Psychiatrist Date Of Appointment With Psychiatric Provider: 02/27/25 Therapist Name of Therapist: Elisa (intake scheduled) Date of Therapist Appointment: 02/28/25 Post Discharge Appointments Primary Care Physician Name Of Family Doctor/PCP: Dr. Tipton/ [place]
[2025-03-01 16:12] LABS: MDA negative; MDEA negative; MDMA (Ecstasy) Urine, Confirm negative
[2025-03-01] MEDS: LANTUS PER UNIT CHARGE SQ SCH (21:05)
--- NOTE | 2025-03-02 08:38 | Psychiatric Progress Note ---
Date of Service March 02, 2025 Impression / Recommendations Impression GARFIELD AYALA is a 44-year-old woman who currently lives in [place] with her mother, step-father, and adult daughters, has a history of major depressive disorder, generalized anxiety disorder, and just discharged from inpatient stay at [facility] three days ago and was admitted on 02/24/25 14:37 on a 201 voluntary commitment for SI with plan to overdose on medications. Diagnostically consistent with major depressive disorder with anxious distress and panic disorder with agoraphobia. A: Ongoing severe depression with her report of subjective internal anxiety and SI. Increasing seeing more help seeking/help rejecting behaviors. Tolerating Wellbutrin so far, she consents to increasing dose tomorrow to target low motivation and energy. Review of [facility] records notable for past concern for sacral wound due to immobility from depression and periods of urinary incontinence which was viewed by providers as possible attention seeking/regressed behaviors. Outside records suggest possible dependent p ersonality or borderline personality component to presentation. Overall, I spent a total of 38 minutes on this case including meeting with the patient, reviewing the chart, nursing report, multidisciplinary team meeting, orders, and documentation. (1) Suicidal ideation: (2) Recurrent severe major depressive disorder with anxiety: (3) Insomnia: Plan 03/02/2025: -Increase Wellbutrin XL to 300mg tomorrow 03/01/2025: -Discontinue Klonopin -Discontinue olanzapine -Start Wellbutrin XL 150mg tomorrow AM 02/28/2025: -Taper Klonopin to 0.5mg daily -Increase fluoxetine to 40mg daily -Increase olanzapine to 5mg HS 02/27/2025: -Start olanzapine 2.5mg HS -fasting lipid panel, HbA1c, Vit D, Vit B12, ESR, CRP tomorrow AM 02/26/2025: -Increase Klonopin to 1mg daily 02/25/2025: The patient was admitted to the [facility]) on q15 min checks (behavioral with suicide precautions) for safety. The patient will participate in group, recreational, and milieu therapies and will be offered additional individual and family sessions as clinically appropriate. -Discontinue trazodone -Start fluoxetine 20mg daily -Increase Buspar to 15mg BID -Start Klonopin 0.5mg daily -Continue mirtazapine 15mg HS -Glycemic pharmacy consult for recommendations regarding need for and dosing for insulin -SW to explore barriers to functioning at home in recent months via family collateral and exploring options for increased support Inventory Assets Strengths: supportive relationships, willing to get treatment Needs: safety and stabilization, medication adjustment, additional coping skills, increased outpatient services Suicide Risk Level Suicide Risk Level: High-Moderate (q15 min suicide checks) (depression and SI but feels safe in the hospital and feels able to ask for support) Suicide Risk Level Comments: Risk Factors Assessment Male: No : Yes Do You Have Access To A Gun?: No Health Problems: Yes Mental Health Diagnoses: Yes Substance Use Disorders: No Previous Attempt: Yes Family History of Suicide: No Previous Psychiatric Hospitalization: Yes Hopelessness: Yes Protective Factors Assessment Employed: No Stable Relationships: Yes Supportive Family: Yes Interval History Identifying Information GARFIELD AYALA is a 44-year-old woman who currently lives in [place] with her mother, step-father, and adult daughters, has a history of major depressive disorder, generalized anxiety disorder, and just discharged from inpatient stay at [facility] three days ago and was admitted on 02/24/25 14:37 on a 201 voluntary commitment for SI with plan to overdose on medications. Chief Complaint "I don't feel like myself". Review of Systems Sleep Information Total Hours of Sleep: 8.5 Meal Information Percent Meal Consumed - Breakfast: 100 Percent Meal Consumed - Lunch: 100 Percent Meal Consumed - Dinner: 100 Subjective Subjective Patient was seen & assessed and interval progress reviewed with treatment team. Attended groups, tearful at times. Reports feeling hopeless. Her mom visited last evening and it didn't go well, her mom expressed concerns Garfield will by suicide. Today she is intermittently tearful. Attended one group with encouragement. Reports ongoing depression. Spoke with her high risk insurance CM and discussed EAC given her desire for a longer-term treatment setting but later was tearful telling nursing this frightened her as she'd be away from her family. But also continues to feel that she cannot return home or be safe there. Denies any side effects from Wellbutrin but also has not noticed any benefits. Does report sleeping well last night. Physical Exam Psychiatric Orientation: alert and oriented x 3 Apperance: appropriately dressed and + disheveled Eye Contact: good eye contact Motor Behavior: no abnormal motor movements Speech: normal rate/rhythm/volume of speech Affect: + depressed affect and + flat affect Mood: + depressed mood and + anxious mood Thought Process: + circumstantial thought process Thought Content: + cognitive distortions, reality based without delusions and + hopelessness Suicidal Thoughts: denies suicidal plan and denies suicidal intent; + reports suicidal thoughts Homicidal Thoughts: denies homicidal thoughts Hallucinations: no auditory hallucinations and no visual hallucinations Cognition: recent memory grossly intact, remote memory grossly intact, attention grossly intact and language grossly intact Estimated Intelligence: consistent with education level Insight: + limited insight Judgment: + limited judgement Vital Signs (Past 24 Hours) Last Vital Signs Temp 36.3 C L 03/02/25 06:22 Pulse 63 03/02/25 06:23 Resp 17 03/02/25 06:22 BP 94/63 L 03/02/25 06:23 Pulse Ox 98 03/02/25 06:22 O2 Del Method Room Air 03/02/25 06:22 Results & Data ([facility]) Laboratory Results Laboratory Results - last 24 hr 02/24/25 03/01/25 03/01/25 12:03 12:09 16:54 POC Glucose 200 H 138 H Urine MDEA negative MDMA negative Urine MDMA negative 03/01/25 03/02/25 19:58 08:33 POC Glucose 185 H 135 H Urine MDEA MDMA Urine MDMA Current Inpatient Medications Current Inpatient Medications: Current Inpatient Medications Acetaminophen (Acetaminophen 325 Mg Tab) 650 mg PO Q4H PRN PRN Reason: Headache or Minor Fever Stop: 03/26/25 15:08 Bupropion HCl (Bupropion Xl 150 Mg Tabcr) 150 mg PO QAM [facility] Stop: 04/01/25 08:59 Buspirone HCl (Buspirone 15 Mg Tab) 15 mg PO QAM [facility] Stop: 03/28/25 08:59 Last Admin: 03/01/25 08:52 Dose: 15 mg Buspirone HCl (Buspirone 15 Mg Tab) 15 mg PO 2000 [facility] Stop: 03/27/25 19:59 Last Admin: 03/01/25 20:31 Dose: 15 mg Dextrose (Dextrose 50% 50 Ml Syringe) 25 - 50 ml IV UD PRN; Protocol PRN Reason: Hypoglycemia Protocol Stop: 03/26/25 16:29 Fluoxetine HCl (Fluoxetine Hcl 20 Mg Cap) 40 mg PO QAM [facility] Stop: 03/31/25 08:59 Last Admin: 03/01/25 08:52 Dose: 40 mg Glucagon (Glucagon For Inj 1 Mg Vial) 1 mg SQ UD PRN; Protocol PRN Reason: Hypoglycemia Protocol Stop: 03/26/25 16:29 Glucose (Glucose 40% Gel 15 Gm Tube) 15 - 30 gm PO UD PRN; Protocol PRN Reason: Hypoglycemia Protocol Stop: 03/26/25 16:29 Glucose (Glucose 10 Tab/Tube) 4 - 8 tab PO UD PRN; Protocol PRN Reason: Hypoglycemia Protocol Stop: 03/26/25 16:29 Hydroxyzine HCl (Hydroxyzine Hcl 25 Mg Tab) 50 mg PO HSZ PRN PRN Reason: Insomnia Stop: 03/26/25 15:08 Hydroxyzine HCl (Hydroxyzine Hcl 25 Mg Tab) 25 mg PO Q4H PRN PRN Reason: Anxiety Stop: 03/26/25 15:08 Insulin Aspart (Insulin Aspart Per Unit Charge) 0 units SC ACHS [facility] Stop: 03/26/25 17:14 Last Admin: 03/01/25 20:35 Dose: 3 units Insulin Glargine (Lantus Per Unit Charge) 6 units SQ HS [facility] Stop: 03/27/25 21:59 Last Admin: 03/01/25 21:05 Dose: 6 units Midodrine (Midodrine Hcl 2.5 Mg Tab) 5 mg PO QA [facility] Stop: 03/27/25 08:59 Last Admin: 03/01/25 08:53 Dose: 5 mg Midodrine (Midodrine Hcl 2.5 Mg Tab) 5 mg PO 1999 [facility] Stop: 03/26/25 19:59 Last Admin: 03/01/25 20:31 Dose: 5 mg Mirtazapine (Mirtazapine Tab 15 Mg Tab) 15 mg PO 1999 [facility] Stop: 03/26/25 19:59 Last Admin: 03/01/25 20:31 Dose: 15 mg Miscellaneous (Carbohydrates For Hypoglycemia ) 15 - 30 gm PO UD PRN PRN Reason: Hypoglycemia Treatment Stop: 03/26/25 16:29 Last Admin: 02/24/25 20:06 Dose: 15 gm Miscellaneous (Remove Nicoderm Patch) 1 each N/A DAILY@2100 [facility] Stop: 03/26/25 20:59 Last Admin: 03/01/25 20:35 Dose: 1 each Miscellaneous Information (Pharmacy Glycemic Mgmt Consult) 1 each N/A UD PRN; Protocol PRN Reason: Consult Stop: 03/26/25 15:57 Nicotine (Nicotine 14 Mg/24 Hr Patch) 1 patch TD QAM [facility] Stop: 03/26/25 16:59 Last Admin: 03/01/25 08:55 Dose: 1 patch Sodium Chloride (Sodium Chloride 0.65% Na Soln 45 Ml ([place])) 1 - 2 sprays NA PRN PRN PRN Reason: Nasal Dryness/Congestion Stop: 03/26/25 15:08 Mental Health & Subst Abuse Tx Psychiatrist Name of Psychiatrist: Sharita Abarca Psychiatrist's Date Of Appointment With Psychiatric Provider: 02/27/25 Psychiatric Appointment Comment: [address] [place] [phone] Therapist Name of Therapist: Sharita Abarca Therapist's Date of Therapist Appointment: 02/28/25 Therapy Appointment Comment: [address] [place] [phone] Post Discharge Appointments Primary Care Physician Name Of Family Doctor/PCP: Dr. Tipton/ [place] Contact Information Discharge Discharge Address: [address] [place] [phone]
--- NOTE | 2025-03-02 08:57 | Pharmacy Report ---
Pharmacy Glycemic Short Note 2 - Date of Service March 02, 2025 - Glycemic Short BSG Results (Last 24 hours): 03/01/25 03/01/25 03/01/25 12:09 16:54 19:58 POC Glucose 200 H 138 H 185 H 03/02/25 08:33 POC Glucose 135 H OUTPATIENT ANTIDIABETIC REGIMEN: * Lantus 20 units daily, NovoLog SSI HbA1c: 6.7% (02/25/25) ASSESSMENT: 03/02/25: * Blood sugars elevated yesterday (pre-lunch and HS) * Will tighten carb ratio today * Basal increased yesterday and will continue 02/28/25: * Blood sugars remain well-controlled, ranging 103-150 mg/dL yesterday * Receiving ~10-20 units of insulin/day * Do not anticipate any changes to glycemic regimen today 02/26 * Patient received 20 units of insulin yesterday, 5 units basal. Blood sugars at goal. * No changes at this time. 02/24 * 44 year old admitted into [facility]. Pharmacy consulted for glycemic management. BSGs>200 on admission - will resume outpatient basal insulin for this evening. Will start novolog weight based stress 2 dosing. PLAN FOR INPATIENT GLYCEMIC CONTROL: * Basal insulin * Lantus 6 units SQ HS * Bolus insulin * NovoLog per scale ACHS or Q6hrs while NPO * Goal Range: Low 110 mg/dL - High 140 mg/dL * Correction Factor: 40 mg/dL/unit * Nutritional / Prandial insulin per carb ratio of 1 unit per 15 grams CHO consumed
--- NOTE | 2025-03-03 09:37 | Psychiatric Progress Note ---
Date of Service March 03, 2025 Impression / Recommendations Impression GARFIELD AYALA is a 44-year-old woman who currently lives in [place] with her mother, step-father, and adult daughters, has a history of major depressive disorder, generalized anxiety disorder, and just discharged from inpatient stay at [facility] three days ago and was admitted on 02/24/25 14:37 on a 201 voluntary commitment for SI with plan to overdose on medications. Diagnostically consistent with major depressive disorder with anxious distress and panic disorder with agoraphobia. A: Ongoing severe depression with subjective internal anxiety and SI. Remains very hopeless and helpless. Given description of current symptoms, her presentation, review of outside records, doesn't seem that Wellbutrin is worsening or contributing to anxiety at this point and continue to feel this is an augmentation strategy that could be very beneficial if it helps to improve her energy and motivation so will continue at this time. She consents to this. Tolerating medications. Continuing to explore potential for EAC vs ECT depending on current treatment response over time. Overall, I spent a total of 39 minutes on this case including meeting with the patient, reviewing the chart, nursing report, multidisciplinary team meeting, orders, and documentation. (1) Suicidal ideation: (2) Recurrent severe major depressive disorder with anxiety: (3) Insomnia: Plan 03/03/2025 -Ongoing behavioral activation efforts -Encouraging use of exercise bike given previous foot surgery 03/02/2025: -Increase Wellbutrin XL to 300mg tomorrow 03/01/2025: -Discontinue Klonopin -Discontinue olanzapine -Start Wellbutrin XL 150mg tomorrow AM 02/28/2025: -Taper Klonopin to 0.5mg daily -Increase fluoxetine to 40mg daily -Increase olanzapine to 5mg HS 02/27/2025: -Start olanzapine 2.5mg HS -fasting lipid panel, HbA1c, Vit D, Vit B12, ESR, CRP tomorrow AM 02/26/2025: -Increase Klonopin to 1mg daily 02/25/2025: The patient was admitted to the [facility] on q15 min checks (behavioral with suicide precautions) for safety. The patient will participate in group, recreational, and milieu therapies and will be offered additional individual and family sessions as clinically appropriate. -Discontinue trazodone -Start fluoxetine 20mg daily -Increase Buspar to 15mg BID -Start Klonopin 0.5mg daily -Continue mirtazapine 15mg HS -Glycemic pharmacy consult for recommendations regarding need for and dosing for insulin -SW to explore barriers to functioning at home in recent months via family collateral and exploring options for increased support Inventory Assets Strengths: supportive relationships, willing to get treatment Needs: safety and stabilization, medication adjustment, additional coping skills, increased outpatient services Suicide Risk Level Suicide Risk Level: High-Moderate (q15 min suicide checks) (depression and SI but feels safe in the hospital and feels able to ask for support) Suicide Risk Level Comments: Risk Factors Assessment Male: No : Yes Do You Have Access To A Gun?: No Health Problems: Yes Mental Health Diagnoses: Yes Substance Use Disorders: No Previous Attempt: Yes Family History of Suicide: No Previous Psychiatric Hospitalization: Yes Hopelessness: Yes Protective Factors Assessment Employed: No Stable Relationships: Yes Supportive Family: Yes Interval History Identifying Information GARFIELD AYALA is a 44-year-old woman who currently lives in [place] with her mother, step-father, and adult daughters, has a history of major depressive disorder, generalized anxiety disorder, and just discharged from inpatient stay at [facility] three days ago and was admitted on 02/24/25 14:37 on a 201 voluntary commitment for SI with plan to overdose on medications. Chief Complaint "I woke up feeling really bad". Review of Systems Sleep Information Total Hours of Sleep: 9 Meal Information Percent Meal Consumed - Breakfast: 90 Percent Meal Consumed - Lunch: 75 Percent Meal Consumed - Dinner: 100 Subjective Subjective Patient was seen & assessed and interval progress reviewed with nursing and social work. Attending some groups. Rated her mood as "1" and worried last night. Today tearful and reports ongoing depression and anxiety and feeling like "I'm suffering". Reports anxiety of "bad thoughts of suicide" after waking up and before dose of Wellbutrin. She doesn't think her anxiety is any worse from the medication. She denies any plans for suicide but continues to have thoughts about suicide. Reflected about EAC and her conversation with RN about this yesterday afternoon, she reflects that will miss her family and misses them right now but also that "I need it though" in regards to EAC for longer treatment. She is also willing to consider ECT if current medications are not beneficial. With encouragement she sat on the exercise bike for 15 minutes. Had to leave a group early due to feeling unable to handle being present due to her depression and anxiety. Continues to find sleep is non-restorative. Physical Exam Psychiatric Orientation: alert and oriented x 3 Apperance: appropriately dressed and + disheveled Eye Contact: good eye contact Motor Behavior: no abnormal motor movements Speech: normal rate/rhythm/volume of speech Affect: + depressed affect and + flat affect Mood: + depressed mood and + anxious mood Thought Process: + circumstantial thought process Thought Content: + cognitive distortions, reality based without delusions and + hopelessness Suicidal Thoughts: denies suicidal plan and denies suicidal intent; + reports suicidal thoughts Homicidal Thoughts: denies homicidal thoughts Hallucinations: no auditory hallucinations and no visual hallucinations Cognition: recent memory grossly intact, remote memory grossly intact, attention grossly intact and language grossly intact Estimated Intelligence: consistent with education level Insight: + limited insight Judgment: + limited judgement Vital Signs (Past 24 Hours) Last Vital Signs Temp 36.6 C 03/03/25 06:24 Pulse 73 03/03/25 06:24 Resp 16 03/03/25 06:24 BP 94/60 L 03/03/25 06:24 Pulse Ox 98 03/02/25 06:22 O2 Del Method Room Air 03/02/25 06:22 Results & Data ([facility]) Laboratory Results Laboratory Results - last 24 hr 03/02/25 03/02/25 03/02/25 12:09 16:55 20:11 POC Glucose 149 H 156 H 203 H 03/03/25 08:34 POC Glucose 131 H Current Inpatient Medications Current Inpatient Medications: Current Inpatient Medications Acetaminophen (Acetaminophen 325 Mg Tab) 650 mg PO Q4H PRN PRN Reason: Headache or Minor Fever Stop: 03/26/25 15:08 Bupropion HCl (Bupropion Xl 300 Mg Tabcr) 300 mg PO QAM [facility] Stop: 04/02/25 08:59 Last Admin: 03/03/25 08:56 Dose: 300 mg Buspirone HCl (Buspirone 15 Mg Tab) 15 mg PO QAM [facility] Stop: 03/28/25 08:59 Last Admin: 03/03/25 08:56 Dose: 15 mg Buspirone HCl (Buspirone 15 Mg Tab) 15 mg PO 2000 [facility] Stop: 03/27/25 19:59 Last Admin: 03/02/25 20:13 Dose: 15 mg Dextrose (Dextrose 50% 50 Ml Syringe) 25 - 50 ml IV UD PRN; Protocol PRN Reason: Hypoglycemia Protocol Stop: 03/26/25 16:29 Fluoxetine HCl (Fluoxetine Hcl 20 Mg Cap) 40 mg PO QAM [facility] Stop: 03/31/25 08:59 Last Admin: 03/03/25 08:56 Dose: 40 mg Glucagon (Glucagon For Inj 1 Mg Vial) 1 mg SQ UD PRN; Protocol PRN Reason: Hypoglycemia Protocol Stop: 03/26/25 16:29 Glucose (Glucose 40% Gel 15 Gm Tube) 15 - 30 gm PO UD PRN; Protocol PRN Reason: Hypoglycemia Protocol Stop: 03/26/25 16:29 Glucose (Glucose 10 Tab/Tube) 4 - 8 tab PO UD PRN; Protocol PRN Reason: Hypoglycemia Protocol Stop: 03/26/25 16:29 Hydroxyzine HCl (Hydroxyzine Hcl 25 Mg Tab) 50 mg PO HSZ PRN PRN Reason: Insomnia Stop: 03/26/25 15:08 Hydroxyzine HCl (Hydroxyzine Hcl 25 Mg Tab) 25 mg PO Q4H PRN PRN Reason: Anxiety Stop: 03/26/25 15:08 Insulin Aspart (Insulin Aspart Per Unit Charge) 0 units SC [facility] Stop: 03/26/25 17:14 Last Admin: 03/03/25 08:58 Dose: 4 units Insulin Glargine (Lantus Per Unit Charge) 6 units SQ HS [facility] Stop: 03/27/25 21:59 Last Admin: 03/02/25 20:22 Dose: 6 units Midodrine (Midodrine Hcl 2.5 Mg Tab) 5 mg PO QA [facility] Stop: 03/27/25 08:59 Last Admin: 03/02/25 09:34 Dose: 5 mg Midodrine (Midodrine Hcl 2.5 Mg Tab) 5 mg PO 1999 [facility] Stop: 03/26/25 19:59 Last Admin: 03/02/25 20:13 Dose: 5 mg Mirtazapine (Mirtazapine Tab 15 Mg Tab) 15 mg PO 1999 [facility] Stop: 03/26/25 19:59 Last Admin: 03/02/25 20:13 Dose: 15 mg Miscellaneous (Carbohydrates For Hypoglycemia ) 15 - 30 gm PO UD PRN PRN Reason: Hypoglycemia Treatment Stop: 03/26/25 16:29 Last Admin: 02/24/25 20:06 Dose: 15 gm Miscellaneous (Remove Nicoderm Patch) 1 each N/A DAILY@2100 [facility] Stop: 03/26/25 20:59 Last Admin: 03/02/25 20:13 Dose: 1 each Miscellaneous Information (Pharmacy Glycemic Mgmt Consult) 1 each N/A UD PRN; Protocol PRN Reason: Consult Stop: 03/26/25 15:57 Nicotine (Nicotine 14 Mg/24 Hr Patch) 1 patch TD QAM [facility] Stop: 03/26/25 16:59 Last Admin: 03/03/25 08:57 Dose: 1 patch Sodium Chloride (Sodium Chloride 0.65% Na Soln 45 Ml ([place])) 1 - 2 sprays NA PRN PRN PRN Reason: Nasal Dryness/Congestion Stop: 03/26/25 15:08 Mental Health & Subst Abuse Tx Psychiatrist Name of Psychiatrist: Sharita Abarca Psychiatrist's Date Of Appointment With Psychiatric Provider: 02/27/25 Psychiatric Appointment Comment: [address] [place] [phone] Therapist Name of Therapist: Sharita Abarca Therapist's Date of Therapist Appointment: 02/28/25 Therapy Appointment Comment: [address] [place] [phone] Post Discharge Appointments Primary Care Physician Name Of Family Doctor/PCP: Dr. Tipt[place]/ [place] Contact Information Discharge Discharge Address: [address] [place] [phone]
--- NOTE | 2025-03-04 09:48 | Psychiatric Progress Note ---
Date of Service March 04, 2025 Impression / Recommendations Impression GARFIELD AYALA is a 44-year-old woman who currently lives in [place] with her mother, step-father, and adult daughters, has a history of major depressive disorder, generalized anxiety disorder, and just discharged from inpatient stay at [facility] three days ago and was admitted on 02/24/25 14:37 on a 201 voluntary commitment for SI with plan to overdose on medications. Diagnostically consistent with major depressive disorder with anxious distress and possible panic disorder versus borderline personality disorder as well as possible OCD component. Unclear what her baseline cognitive functioning has been, low suspicion for any type of early neurocognitive decline especially given report of normal MRI done recently at an outside hospital. A: Ongoing severe depression but today with new ego-dystonic homicidal ideation without plan or intent but which is very distressing to her and caused her to start yelling early in the day and to refuse her medications. She feels safer in the quiet room but continues to require frequent reassurance and reports ongoing anxiety, depression and distress. She continues to report limited efficacy from most medications but is willing to try risperidone and Valium. Reviewed side effects including but not limited to: addictive potential/dizziness/fall risk with Valium and metabolic and movement risks, AIMS scale is 0 and need for routine metabolic labwork (already done during this admission) with risperidone. Given potential that two doses of Wellbutrin increased irritability and anxiety will discontinue this. She consents to continuing fluoxetine and buspar given ongoing depression and anxiety. Will trial risperidone for depression augmentation and due to ego-dystonic obsessions that have emerged but remains no symptoms of acute psychosis. Will also trial Valium given long half-life in effort to treat anxiety component of presentation. She does appear more anxious today with restlessness which had been observed previously during this admission. Remains very hopeless and helpless. Continuing to explore potential for EAC vs ECT depending on current treatment response over time. MNPR due to increased distress and new HI Overall, I spent a total of 55 minutes on this case including meeting with the patient, reviewing the chart, nursing report, multidisciplinary team meeting, orders, and documentation. (1) Suicidal ideation: (2) Recurrent severe major depressive disorder with anxiety: (3) Insomnia: Plan 03/04/2025: -Start risperidone 1mg ODT TID prn for agitation -Valium 2mg one time dose due to distress -Discontinue Wellbutrin 03/03/2025 -Ongoing behavioral activation efforts -Encouraging use of exercise bike given previous foot surgery 03/02/2025: -Increase Wellbutrin XL to 300mg tomorrow 03/01/2025: -Discontinue Klonopin -Discontinue olanzapine -Start Wellbutrin XL 150mg tomorrow AM 02/28/2025: -Taper Klonopin to 0.5mg daily -Increase fluoxetine to 40mg daily -Increase olanzapine to 5mg HS 02/27/2025: -Start olanzapine 2.5mg HS -fasting lipid panel, HbA1c, Vit D, Vit B12, ESR, CRP tomorrow AM 02/26/2025: -Increase Klonopin to 1mg daily 02/25/2025: The patient was admitted to the [facility] ([facility]) on q15 min checks (behavioral with suicide precautions) for safety. The patient will participate in group, recreational, and milieu therapies and will be offered additional individual and family sessions as clinically appropriate. -Discontinue trazodone -Start fluoxetine 20mg daily -Increase Buspar to 15mg BID -Start Klonopin 0.5mg daily -Continue mirtazapine 15mg HS -Glycemic pharmacy consult for recommendations regarding need for and dosing for insulin -SW to explore barriers to functioning at home in recent months via family collateral and exploring options for increased support Inventory Assets Strengths: supportive relationships, willing to get treatment Needs: safety and stabilization, medication adjustment, additional coping skills, increased outpatient services Suicide Risk Level Suicide Risk Level: High-Moderate (q15 min suicide checks) (depression and SI and ego-dystonic HI without plan nor intent, no command AH and feels safe in the hospital and feels able to ask for support) Suicide Risk Level Comments: Risk Factors Assessment Male: No : Yes Do You Have Access To A Gun?: No Health Problems: Yes Mental Health Diagnoses: Yes Substance Use Disorders: No Previous Attempt: Yes Family History of Suicide: No Previous Psychiatric Hospitalization: Yes Hopelessness: Yes Protective Factors Assessment Employed: No Stable Relationships: Yes Supportive Family: Yes Interval History Identifying Information GARFIELD AYALA is a 44-year-old woman who currently lives in [place] with her mother, step-father, and adult daughters, has a history of major depressive disorder, generalized anxiety disorder, and just discharged from inpatient stay at [facility] three days ago and was admitted on 02/24/25 14:37 on a 201 voluntary commitment for SI with plan to overdose on medications. Chief Complaint "I only slept for an hour". Review of Systems Sleep Information Total Hours of Sleep: 8 Meal Information Percent Meal Consumed - Breakfast: 90 Percent Meal Consumed - Lunch: 100 Percent Meal Consumed - Dinner: 2 Subjective Subjective Patient was seen & assessed and interval progress reviewed with nursing and social work. Left early from evening group. She accepted a Vistaril last evening. Crying last evening, would not accept any nursing interventions, only very briefly took a shower which was recommended to try to help her. Later watched a movie with peers and last evening rated mood as "nervous" and went to evening music group. This morning refused breakfast, refused insulin, and then started to yell, asked to go to the quiet room and specifically requested an IM though denies she's ever had this before. She was seen in the quiet room where she has been observed pacing and lightly trying to hit her head on the wall. She is tearful intermittently. Tells me she only slept an hour last night and in the middle of the night started to have intrusive thoughts that she might hurt someone. She has no plan or intent but r eports "I'm scared" and "I don't want to do that". She responded to some grounding techniques and was able to identify feeling very helpless and hopeless. She is having less thoughts of suicide today due to increased thoughts about fears she'll hurt someone else. She denies any external voices or hallucinations. Reviewed medications and she would like to discontinue Wellbutrin. She consents to trial of risperidone ODT and Valium. She agrees to continue fluoxetine and her other medications as we reviewed that these are important for treatment of depression. Physical Exam Psychiatric Orientation: alert and oriented x 3 Apperance: appropriately dressed and + disheveled Eye Contact: good eye contact Motor Behavior: + psychomotor agitation Speech: + loud speech and normal rate/rhythm/volume of speech Affect: + depressed affect, + anxious affect, + tearful affect and + labile affect Mood: + depressed mood and + anxious mood Thought Process: + perseveration Thought Content: + preoccupation, + cognitive distortions, reality based without delusions and + hopelessness Suicidal Thoughts: denies suicidal plan and denies suicidal intent; + reports suicidal thoughts Homicidal Thoughts: denies homicidal plan and denies homicidal intent; + reports homicidal thoughts (reports ego-dystonic HI today that is distressing to her) Hallucinations: no auditory hallucinations and no visual hallucinations Cognition: recent memory grossly intact, remote memory grossly intact, attention grossly intact and language grossly intact Estimated Intelligence: + below average estimated intelligence Insight: + limited insight Judgment: + limited judgement Vital Signs (Past 24 Hours) Last Vital Signs Temp 36.6 C 03/04/25 06:19 Pulse 73 03/04/25 06:19 Resp 16 03/04/25 06:19 BP 112/68 03/04/25 06:19 Pulse Ox 98 03/02/25 06:22 O2 Del Method Room Air 03/02/25 06:22 Results & Data ([facility]) Laboratory Results Laboratory Results - last 24 hr 03/03/25 03/03/25 03/03/25 12:06 16:57 20:18 POC Glucose 152 H 158 H 143 H 03/04/25 08:36 POC Glucose 178 H Current Inpatient Medications Current Inpatient Medications: Current Inpatient Medications Acetaminophen (Acetaminophen 325 Mg Tab) 650 mg PO Q4H PRN PRN Reason: Headache or Minor Fever Stop: 03/26/25 15:08 Bupropion HCl (Bupropion Xl 300 Mg Tabcr) 300 mg PO QAM [facility] Stop: 04/02/25 08:59 Last Admin: 03/03/25 08:56 Dose: 300 mg Buspirone HCl (Buspirone 15 Mg Tab) 15 mg PO QAM [facility] Stop: 03/28/25 08:59 Last Admin: 03/03/25 08:56 Dose: 15 mg Buspirone HCl (Buspirone 15 Mg Tab) 15 mg PO 2000 [facility] Stop: 03/27/25 19:59 Last Admin: 03/03/25 20:27 Dose: 15 mg Dextrose (Dextrose 50% 50 Ml Syringe) 25 - 50 ml IV UD PRN; Protocol PRN Reason: Hypoglycemia Protocol Stop: 03/26/25 16:29 Fluoxetine HCl (Fluoxetine Hcl 20 Mg Cap) 40 mg PO QAM [facility] Stop: 03/31/25 08:59 Last Admin: 03/03/25 08:56 Dose: 40 mg Glucagon (Glucagon For Inj 1 Mg Vial) 1 mg SQ UD PRN; Protocol PRN Reason: Hypoglycemia Protocol Stop: 03/26/25 16:29 Glucose (Glucose 40% Gel 15 Gm Tube) 15 - 30 gm PO UD PRN; Protocol PRN Reason: Hypoglycemia Protocol Stop: 03/26/25 16:29 Glucose (Glucose 10 Tab/Tube) 4 - 8 tab PO UD PRN; Protocol PRN Reason: Hypoglycemia Protocol Stop: 03/26/25 16:29 Hydroxyzine HCl (Hydroxyzine Hcl 25 Mg Tab) 50 mg PO HSZ PRN PRN Reason: Insomnia Stop: 03/26/25 15:08 Hydroxyzine HCl (Hydroxyzine Hcl 25 Mg Tab) 25 mg PO Q4H PRN PRN Reason: Anxiety Stop: 03/26/25 15:08 Last Admin: 03/03/25 14:07 Dose: 25 mg Insulin Aspart (Insulin Aspart Per Unit Charge) 0 units SC ACHS [facility] Stop: 03/26/25 17:14 Last Admin: 03/03/25 20:37 Dose: 2 units Insulin Glargine (Lantus Per Unit Charge) 6 units SQ HS [facility] Stop: 03/27/25 21:59 Last Admin: 03/03/25 20:40 Dose: 6 units Midodrine (Midodrine Hcl 2.5 Mg Tab) 5 mg PO [facility] Stop: 03/27/25 08:59 Last Admin: 03/02/25 09:34 Dose: 5 mg Midodrine (Midodrine Hcl 2.5 Mg Tab) 5 mg PO 1999 [facility] Stop: 03/26/25 19:59 Last Admin: 03/03/25 20:27 Dose: 5 mg Mirtazapine (Mirtazapine Tab 15 Mg Tab) 15 mg PO 1999 [facility] Stop: 03/26/25 19:59 Last Admin: 03/03/25 20:27 Dose: 15 mg Miscellaneous (Carbohydrates For Hypoglycemia ) 15 - 30 gm PO UD PRN PRN Reason: Hypoglycemia Treatment Stop: 03/26/25 16:29 Last Admin: 02/24/25 20:06 Dose: 15 gm Miscellaneous (Remove Nicoderm Patch) 1 each N/A DAILY@2100 [facility] Stop: 03/26/25 20:59 Last Admin: 03/03/25 20:27 Dose: 1 each Miscellaneous Information (Pharmacy Glycemic Mgmt Consult) 1 each N/A UD PRN; Protocol PRN Reason: Consult Stop: 03/26/25 15:57 Nicotine (Nicotine 14 Mg/24 Hr Patch) 1 patch TD QAM SELAM Stop: 03/26/25 16:59 Last Admin: 03/03/25 08:57 Dose: 1 patch Sodium Chloride (Sodium Chloride 0.65% Na Soln 45 Ml ([place])) 1 - 2 sprays NA PRN PRN PRN Reason: Nasal Dryness/Congestion Stop: 03/26/25 15:08 Mental Health & Subst Abuse Tx Psychiatrist Name of Psychiatrist: Sharita Abarca Psychiatrist's Date Of Appointment With Psychiatric Provider: 02/27/25 Psychiatric Appointment Comment: [address] [place] [id number] Therapist Name of Therapist: Sharita Abarca Therapist's Date of Therapist Appointment: 02/28/25 Therapy Appointment Comment: [address] [place] [id number] Post Discharge Appointments Primary Care Physician Name Of Family Doctor/PCP: Dr. Tipton/ [place] Contact Information Discharge Discharge Address: [address] [place] [id number]
[2025-03-04] MEDS: risperiDONE ODT 0.5 MG SOLTAB PO PRN (11:54)
[2025-03-05] MEDS: LORazepam 1 MG TAB PO PRN (08:04)
--- NOTE | 2025-03-05 14:33 | Pharmacy Report ---
Pharmacy Glycemic Short Note 2 - Date of Service March 05, 2025 - Glycemic Short BSG Results (Last 24 hours): 03/04/25 03/04/25 03/05/25 17:12 21:27 08:08 POC Glucose 127 H 170 H 170 H 03/05/25 12:11 POC Glucose 199 H OUTPATIENT ANTIDIABETIC REGIMEN: * Lantus 20 units daily, NovoLog SSI HbA1c: 6.7% (02/25/25) ASSESSMENT: 03/05: * Patient received total of 9 units of insulin yesterday, of which 6 were basal insulin * Fastin BSG 170 mg/dL - of note patient did refuse a few units of correctional insulin. Will keep parameters the same for today. Could consider titrating up basal if fasting continues to be >160 03/02/25: * Blood sugars elevated yesterday (pre-lunch and HS) * Will tighten carb ratio today * Basal increased yesterday and will continue 02/28/25: * Blood sugars remain well-controlled, ranging 103-150 mg/dL yesterday * Receiving ~10-20 units of insulin/day * Do not anticipate any changes to glycemic regimen today 02/26 * Patient received 20 units of insulin yesterday, 5 units basal. Blood sugars at goal. * No changes at this time. 02/24 * 44 year old admitted into [facility]. Pharmacy consulted for glycemic management. BSGs>200 on admission - will resume outpatient basal insulin for this evening. Will start novolog weight based stress 2 dosing. PLAN FOR INPATIENT GLYCEMIC CONTROL: * Basal insulin * Lantus 6 units SQ HS * Bolus insulin * NovoLog per scale ACHS or Q6hrs while NPO * Goal Range: Low 110 mg/dL - High 140 mg/dL * Correction Factor: 40 mg/dL/unit * Nutritional / Prandial insulin per carb ratio of 1 unit per 15 grams CHO consumed
--- NOTE | 2025-03-05 15:31 | Psychiatric Progress Note ---
Date of Service March 05, 2025 Impression / Recommendations Impression GARFIELD AYALA is a 44-year-old woman who currently lives in [place] with her mother, step-father, and adult daughters, has a history of major depressive disorder, generalized anxiety disorder, and just discharged from inpatient stay at [facility] three days ago and was admitted on 02/24/25 14:37 on a 201 voluntary commitment for SI with plan to overdose on medications. Diagnostically consistent with major depressive disorder with anxious distress and possible panic disorder versus borderline personality disorder as well as possible OCD component. Unclear what her baseline cognitive functioning has been, low suspicion for any type of early neurocognitive decline especially given report of normal MRI done recently at an outside hospital. A: Ongoing severe depression but today with new ego-dystonic homicidal ideation without plan or intent but which is very distressing to her and caused her to start yelling early in the day and to refuse her medications. She feels safer in the quiet room but continues to require frequent reassurance and reports ongoing anxiety, depression and distress. She continues to report limited efficacy from most medications but is willing to try risperidone and Valium. Reviewed side effects including but not limited to: addictive potential/dizziness/fall risk with Valium and metabolic and movement risks, AIMS scale is 0 and need for routine metabolic labwork (already done during this admission) with risperidone. Given potential that two doses of Wellbutrin increased irritability and anxiety will discontinue this. She consents to continuing fluoxetine and buspar given ongoing depression and anxiety. Will trial risperidone for depression augmentation and due to ego-dystonic obsessions that have emerged but remains no symptoms of acute psychosis. Will also trial Valium given long half-life in effort to treat anxiety component of presentation. She does appear more anxious today with restlessness which had been observed previously during this admission. Remains very hopeless and helpless. Continuing to explore potential for EAC vs ECT depending on current treatment response over time. MNPR due to increased distress and new HI Overall, I spent a total of 55 minutes on this case including meeting with the patient, reviewing the chart, nursing report, multidisciplinary team meeting, orders, and documentation. (1) Suicidal ideation: (2) Recurrent severe major depressive disorder with anxiety: (3) Insomnia: Plan 03/05/2025: Directed the patient to write down her treatment objectives to establish realistic expectations. Patient is currently open to long-term inpatient care as well as ECT. Continue Current Medications: Mirtazapine 15 mg PO QHS @ 1999 Prozac 40 mg PO QAM Buspar 15 mg PO BID ( and 1999) PRN Risperidone PO TID for anxiety/agitation; PRN Ativan 1 mg PO TID for acute anxiety refractory to Risperdal; PRN Vistaril 25 mg PO Q4H for mild anxiety PRN Thorazine 25 mg PO QD for management of acute DTO/DTS agitation/aggression PRN Vistaril 50 mg PO QHS for insomnia [patient advised to use for nighttime awakenings] 03/04/2025: -Start risperidone 1mg ODT TID prn for agitation -Valium 2mg one time dose due to distress -Discontinue Wellbutrin 03/03/2025 -Ongoing behavioral activation efforts -Encouraging use of exercise bike given previous foot surgery 03/02/2025: -Increase Wellbutrin XL to 300mg tomorrow 03/01/2025: -Discontinue Klonopin -Discontinue olanzapine -Start Wellbutrin XL 150mg tomorrow AM 02/28/2025: -Taper Klonopin to 0.5mg daily -Increase fluoxetine to 40mg daily -Increase olanzapine to 5mg HS 02/27/2025: -Start olanzapine 2.5mg HS -fasting lipid panel, HbA1c, Vit D, Vit B12, ESR, CRP tomorrow AM 02/26/2025: -Increase Klonopin to 1mg daily 02/25/2025: The patient was admitted to the [facility] ([facility] mental health unit) on q15 min checks (behavioral with suicide precautions) for safety. The patient will participate in group, recreational, and milieu therapies and will be offered additional individual and family sessions as clinically appropriate. -Discontinue trazodone -Start fluoxetine 20mg daily -Increase Buspar to 15mg BID -Start Klonopin 0.5mg daily -Continue mirtazapine 15mg HS -Glycemic pharmacy consult for recommendations regarding need for and dosing for insulin -SW to explore barriers to functioning at home in recent months via family collateral and exploring options for increased support Inventory Assets Strengths: supportive relationships, willing to get treatment Needs: safety and stabilization, medication adjustment, additional coping skills, increased outpatient services Suicide Risk Level Suicide Risk Level: High-Moderate (q15 min suicide checks) (depression and SI and ego-dystonic HI without plan nor intent, no command AH and feels safe in the hospital and feels able to ask for support) Suicide Risk Level Comments: Risk Factors Assessment Male: No : Yes Do You Have Access To A Gun?: No Health Problems: Yes Mental Health Diagnoses: Yes Substance Use Disorders: No Previous Attempt: Yes Family History of Suicide: No Previous Psychiatric Hospitalization: Yes Hopelessness: Yes Protective Factors Assessment Employed: No Stable Relationships: Yes Supportive Family: Yes Interval History Identifying Information GARFIELD AYALA is a 44-year-old woman who currently lives in [place] with her mother, step-father, and adult daughters, has a history of major depressive disorder, generalized anxiety disorder, and just discharged from inpatient stay at [facility] three days ago and was admitted on 02/24/25 14:37 on a 201 voluntary commitment for SI with plan to overdose on medications. Chief Complaint "[want[ing] to harm everybodyAll day long...I'm afraid of hurting others]". Review of Systems Sleep Information Total Hours of Sleep: 9 Meal Information Percent Meal Consumed - Breakfast: 50 Percent Meal Consumed - Lunch: 15 Percent Meal Consumed - Dinner: 20 Nutrition Comment: Also ate 4 saltine crackers. Subjective Subjective Patient was seen & assessed on the unit this afternoon. Regarding her mood the patient stated, "Im doing better than I was doing yesterday." She reported experiencing intrusive thoughts of "want[ing] to harm everybody All day long for the past 3 days. The patient reported having no prior history of intrusive homicidal ideations, describing the thoughts as distressing. "I have the thoughts with myself... Thoughts of hurting myself," she stated. She reported last experiencing intrusive suicidal ideations in 2020. Patient also reported difficulty sleeping in the last 3 days. "I think its with my anxiety being high," she stated. Patient also confirmed having feelings of depression.When asked to describe her experience with depression she stated, "I cry. I m really anxious... I lose my appetite. I do pace a lot." Patient expressed her concerns that no medication could help her and inquired about pursuing ECT. It was noted that after losing her child at home she may be grieving, which is can often be an unpredictable and labile process. We discussed developing coping skills to tolerate bad days and shifts in her mood. Patient education was provided regarding the need to regulate mood changes without medications. Interval progress reviewed with [treatment team] [nursing and social work]. Physical Exam Psychiatric Orientation: alert and oriented x 3 Apperance: appropriately dressed, appropriately groomed and + disheveled Eye Contact: good eye contact Motor Behavior: no abnormal motor movements Speech: normal rate/rhythm/volume of speech Affect: + anxious affect, + blunted affect and + constricted affect Mood: + depressed mood and + anxious mood reported "anxious" and confirmed feelings of depression Thought Process: goal directed thought process and + perseveration Thought Content: + preoccupation, + cognitive distortions, reality based without delusions and + hopelessness Suicidal Thoughts: denies suicidal thoughts, denies suicidal plan and denies suicidal intent Homicidal Thoughts: denies homicidal thoughts, denies homicidal plan and denies homicidal intent Hallucinations: no auditory hallucinations and no visual hallucinations Cognition: recent memory grossly intact, remote memory grossly intact, attention grossly intact and language grossly intact Estimated Intelligence: consistent with education level and + below average estimated intelligence Insight: + limited insight and + fair insight Judgment: + limited judgement and + fair judgement Vital Signs (Past 24 Hours) Last Vital Signs Temp 36.8 C 03/05/25 06:21 Pulse 105 H 03/05/25 06:22 Resp 16 03/05/25 06:21 BP 122/72 03/05/25 06:22 Pulse Ox 98 03/02/25 06:22 O2 Del Method Room Air 03/02/25 06:22 Results & Data ([facility]) Laboratory Results Laboratory Results - last 24 hr 03/04/25 03/04/25 03/05/25 17:12 21:27 08:08 POC Glucose 127 H 170 H 170 H 03/05/25 12:11 POC Glucose 199 H Current Inpatient Medications Current Inpatient Medications: Current Inpatient Medications Acetaminophen (Acetaminophen 325 Mg Tab) 650 mg PO Q4H PRN PRN Reason: Headache or Minor Fever Stop: 03/26/25 15:08 Buspirone HCl (Buspirone 15 Mg Tab) 15 mg PO QA [facility] Stop: 03/28/25 08:59 Last Admin: 03/05/25 08:11 Dose: 15 mg Buspirone HCl (Buspirone 15 Mg Tab) 15 mg PO 1999 [facility] Stop: 03/27/25 19:59 Last Admin: 03/04/25 19:53 Dose: 15 mg Chlorpromazine HCl (Chlorpromazine Hcl 25 Mg Tab) 25 mg PO DAILY PRN PRN Reason: Agitation Stop: 04/03/25 13:08 Last Admin: 03/04/25 17:16 Dose: 25 mg Dextrose (Dextrose 50% 50 Ml Syringe) 25 - 50 ml IV UD PRN; Protocol PRN Reason: Hypoglycemia Protocol Stop: 03/26/25 16:29 Fluoxetine HCl (Fluoxetine Hcl 20 Mg Cap) 40 mg PO QAM [facility] Stop: 03/31/25 08:59 Last Admin: 03/05/25 08:11 Dose: 40 mg Glucagon (Glucagon For Inj 1 Mg Vial) 1 mg SQ UD PRN; Protocol PRN Reason: Hypoglycemia Protocol Stop: 03/26/25 16:29 Glucose (Glucose 40% Gel 15 Gm Tube) 15 - 30 gm PO UD PRN; Protocol PRN Reason: Hypoglycemia Protocol Stop: 03/26/25 16:29 Glucose (Glucose 10 Tab/Tube) 4 - 8 tab PO UD PRN; Protocol PRN Reason: Hypoglycemia Protocol Stop: 03/26/25 16:29 Hydroxyzine HCl (Hydroxyzine Hcl 25 Mg Tab) 50 mg PO HSZ PRN PRN Reason: Insomnia Stop: 03/26/25 15:08 Hydroxyzine HCl (Hydroxyzine Hcl 25 Mg Tab) 25 mg PO Q4H PRN PRN Reason: Anxiety Stop: 03/26/25 15:08 Last Admin: 03/03/25 14:07 Dose: 25 mg Insulin Aspart (Insulin Aspart Per Unit Charge) 0 units SC ACHS [facility] Stop: 03/26/25 17:14 Last Admin: 03/05/25 12:22 Dose: 6 units Insulin Glargine (Lantus Per Unit Charge) 6 units SQ HS [facility] Stop: 03/27/25 21:59 Last Admin: 03/04/25 21:41 Dose: 6 units Lorazepam (Lorazepam 1 Mg Tab) 1 mg PO TID PRN PRN Reason: panic attacks Stop: 04/03/25 13:04 Last Admin: 03/05/25 08:04 Dose: 1 mg Midodrine (Midodrine Hcl 2.5 Mg Tab) 5 mg PO QAM [facility] Stop: 03/27/25 08:59 Last Admin: 03/05/25 08:13 Dose: 5 mg Midodrine (Midodrine Hcl 2.5 Mg Tab) 5 mg PO 1999 [facility] Stop: 03/26/25 19:59 Last Admin: 03/04/25 19:52 Dose: 5 mg Mirtazapine (Mirtazapine Tab 15 Mg Tab) 15 mg PO 1999 [facility] Stop: 03/26/25 19:59 Last Admin: 03/04/25 19:54 Dose: 15 mg Miscellaneous (Carbohydrates For Hypoglycemia ) 15 - 30 gm PO UD PRN PRN Reason: Hypoglycemia Treatment Stop: 03/26/25 16:29 Last Admin: 02/24/25 20:06 Dose: 15 gm Miscellaneous (Remove Nicoderm Patch) 1 each N/A DAILY@2100 [facility] Stop: 03/26/25 20:59 Last Admin: 03/04/25 21:28 Dose: 1 each Miscellaneous Information (Pharmacy Glycemic Mgmt Consult) 1 each N/A UD PRN; Protocol PRN Reason: Consult Stop: 03/26/25 15:57 Nicotine (Nicotine 14 Mg/24 Hr Patch) 1 patch TD QAM [facility] Stop: 03/26/25 16:59 Last Admin: 03/05/25 09:17 Dose: 1 patch Risperidone (Risperidone Odt 0.5 Mg Soltab) 1 mg PO TID PRN PRN Reason: Agitation Stop: 04/03/25 11:21 Last Admin: 03/05/25 08:24 Dose: 1 mg Sodium Chloride (Sodium Chloride 0.65% Na Soln 45 Ml (Alcorn)) 1 - 2 sprays NA PRN PRN PRN Reason: Nasal Dryness/Congestion Stop: 03/26/25 15:08 Mental Health & Subst Abuse Tx Psychiatrist Name of Psychiatrist: Sharita Abarca Psychiatrist's Date Of Appointment With Psychiatric Provider: 02/27/25 Psychiatric Appointment Comment: [place] [id number] Therapist Name of Therapist: Sharita Abarca Therapist's Date of Therapist Appointment: 02/28/25 Therapy Appointment Comment: [address] [place], [place] [address] [id number] Post Discharge Appointments Primary Care Physician Name Of Family Doctor/PCP: Dr. T[place]on/ [place] Contact Information Discharge Discharge Address: [address] [facility] [place] [id number]
--- NOTE | 2025-03-06 17:45 | Psychiatric Progress Note ---
Date of Service March 06, 2025 Impression / Recommendations Impression GARFIELD AYALA is a 44-year-old woman who currently lives in [place] with her mother, step-father, and adult daughters, has a history of major depressive disorder, generalized anxiety disorder, and just discharged from inpatient stay at [facility] three days ago and was admitted on 02/24/25 14:37 on a 201 voluntary commitment for SI with plan to overdose on medications. Diagnostically consistent with major depressive disorder with anxious distress and possible panic disorder versus borderline personality disorder as well as possible OCD component. Unclear what her baseline cognitive functioning has been, low suspicion for any type of early neurocognitive decline especially given report of normal MRI done recently at an outside hospital. A: Improving depression with resolved egodystonic homicidal ideations. At this time, the patient is primarily worried about her recently developed agoraphobia. She feels safer in the quiet room but continues to require frequent reassurance and reports ongoing anxiety, depression and distress. She continues to report limited efficacy from most medications but is willing to try risperidone and Valium. Patient is interested in managing her mental health with ECT. Patient education was discussed regarding the need to fulfill the trials prior to ECT approval. She expressed understanding that early discontinuation without reaching max recommended dose has led to multiple incomplete trials. The patient was amenable to prioritizing her insomnia due to its likely impact on her anxiety. Will also trial Valium given long half-life in effort to treat anxiety component of presentation. She does appear more anxious today with restlessness which had been observed previously during this admission. Continuing to explore potential for EAC vs ECT depending on current treatment response over time. MNPR due to increased distress and new HI Overall, I spent a total of 35 minutes on this case including meeting with the patient, reviewing the chart, nursing report, multidisciplinary team meeting, orders, and documentation. (1) Suicidal ideation: (2) Recurrent severe major depressive disorder with anxiety: (3) Insomnia: Plan 03/06/2025: Directed the patient to write down her treatment objectives to establish realistic expectations. Will prioritize managing insomnia due to its likely impact on her anxiety Continue Current Medications: Decrease to Mirtazapine 7.5 mg PO QHS @ 1999 (more sedating at lower doses) Start PRN Mirtazapine 7.5 mg QHS for interrupted sleep Prozac 40 mg PO QAM Buspar 15 mg PO BID (QAM and 1999) PRN Risperidone PO TID for anxiety/agitation; PRN Ativan 1 mg PO TID for acute anxiety refractory to Risperdal; PRN Vistaril 25 mg PO Q4H for mild anxiety PRN Thorazine 25 mg PO QD for management of acute DTO/DTS agitation/aggression PRN Vistaril 50 mg PO QHS for interrupted sleep refractory to PRN Mirtazapine 03/05/2025: Directed the patient to write down her treatment objectives to establish realistic expectations. Patient is currently open to long-term inpatient care as well as ECT. Continue Current Medications: Mirtazapine 15 mg PO QHS @ 1999 Prozac 40 mg PO QAM Buspar 15 mg PO BID (QA and 1999) PRN Risperidone PO TID for anxiety/agitation; PRN Ativan 1 mg PO TID for acute anxiety refractory to Risperdal; PRN Vistaril 25 mg PO Q4H for mild anxiety PRN Thorazine 25 mg PO QD for management of acute DTO/DTS agitation/aggression PRN Vistaril 50 mg PO QHS for insomnia [patient advised to use for nighttime awakenings] 03/04/2025: -Start risperidone 1mg ODT TID prn for agitation -Valium 2mg one time dose due to distress -Discontinue Wellbutrin 03/03/2025 -Ongoing behavioral activation efforts -Encouraging use of exercise bike given previous foot surgery 03/02/2025: -Increase Wellbutrin XL to 300mg tomorrow 03/01/2025: -Discontinue Klonopin -Discontinue olanzapine -Start Wellbutrin XL 150mg tomorrow AM 02/28/2025: -Taper Klonopin to 0.5mg daily -Increase fluoxetine to 40mg daily -Increase olanzapine to 5mg HS 02/27/2025: -Start olanzapine 2.5mg HS -fasting lipid panel, HbA1c, Vit D, Vit B12, ESR, CRP tomorrow AM 02/26/2025: -Increase Klonopin to 1mg daily 02/25/2025: The patient was admitted to the [facility] ([facility] mental health unit) on q15 min checks (behavioral with suicide precautions) for safety. The patient will participate in group, recreational, and milieu therapies and will be offered additional individual and family sessions as clinically appropriate. -Discontinue trazodone -Start fluoxetine 20mg daily -Increase Buspar to 15mg BID -Start Klonopin 0.5mg daily -Continue mirtazapine 15mg HS -Glycemic pharmacy consult for recommendations regarding need for and dosing for insulin -SW to explore barriers to functioning at home in recent months via family collateral and exploring options for increased support Inventory Assets Strengths: supportive relationships, willing to get treatment Needs: safety and stabilization, medication adjustment, additional coping skills, increased outpatient services Suicide Risk Level Suicide Risk Level: High-Moderate (q15 min suicide checks) (depression and SI and ego-dystonic HI without plan nor intent, no command AH and feels safe in the hospital and feels able to ask for support) Suicide Risk Level Comments: Risk Factors Assessment Male: No : Yes Do You Have Access To A Gun?: No Health Problems: Yes Mental Health Diagnoses: Yes Substance Use Disorders: No Previous Attempt: Yes Family History of Suicide: No Previous Psychiatric Hospitalization: Yes Hopelessness: Yes Protective Factors Assessment Employed: No Stable Relationships: Yes Supportive Family: Yes Interval History Identifying Information GARFIELD AYALA is a 44-year-old woman who currently lives in [place] with her mother, step-father, and adult daughters, has a history of major depressive disorder, generalized anxiety disorder, and just discharged from inpatient stay at [facility] three days ago and was admitted on 02/24/25 14:37 on a 201 voluntary commitment for SI with plan to overdose on medications. Chief Complaint "I am doing a lot better than I was yesterday and the day before". Review of Systems Sleep Information Total Hours of Sleep: 6.5 Meal Information Percent Meal Consumed - Breakfast: 90 Percent Meal Consumed - Lunch: 100 Percent Meal Consumed - Dinner: 100 Nutrition Comment: Also ate 4 saltine crackers. Subjective Subjective Patient was evaluated by me this afternoon. Regarding her mood she stated, "I am doing a lot better than I was yesterday and the day before." She reported preserved appetite but still disrupted sleep, noting that the PRN Vistaril h elped her to return to sleep but not remain asleep. "I woke up like an hour later, she stated. Patient identified her recent anxiety as her chief complaint stating, "Adeline never been like that before... I panic going to the storeeven going outside I panic. These periods of panic have been associated with tachycardia, dyspnea, and restlessness. "My hearts racing. I cant breathe. I cant sit still," she explained. The patient was amenable to prioritizing her insomnia due to its likely impact on her anxiety. Patient education was provided regarding distinguishing between nonpathologic/situational anxiety and low mood, as well as the need to develop non-pharmacological treatment interventions. Patient had no further concerns. She reported experiencing no suicidal/homicidal ideations and no auditory/visual hallucinations. Interval progress reviewed with treatment team nursing and social work Physical Exam Psychiatric Orientation: alert and oriented x 3 Apperance: appropriately dressed and appropriately groomed; not disheveled Eye Contact: good eye contact Motor Behavior: no abnormal motor movements; no psychomotor agitation Speech: normal rate/rhythm/volume of speech; no loud speech Affect: + anxious affect; no depressed affect, no flat affect, no tearful affect, no blunted affect, no labile affect and no constricted affect Mood: + depressed mood ("better") and + anxious mood Thought Process: goal directed thought process; thought process not circumstantial and no perseveration Thought Content: reality based without delusions; no preoccupation, no cognitive distortions and no hopelessness Suicidal Thoughts: denies suicidal thoughts, denies suicidal plan and denies suicidal intent Homicidal Thoughts: denies homicidal thoughts, denies homicidal plan and denies homicidal intent Hallucinations: no auditory hallucinations and no visual hallucinations Cognition: recent memory grossly intact, remote memory grossly intact, attention grossly intact and language grossly intact Estimated Intelligence: consistent with education level and + below average estimated intelligence Insight: + limited insight and + fair insight Judgment: + limited judgement and + fair judgement Vital Signs (Past 24 Hours) Last Vital Signs Temp 36.6 C 03/06/25 06:21 Pulse 86 03/06/25 06:22 Resp 16 03/06/25 06:21 BP 103/66 03/06/25 06:22 Pulse Ox 98 03/02/25 06:22 O2 Del Method Room Air 03/02/25 06:22 Results & Data ([facility]) Laboratory Results Laboratory Results - last 24 hr 03/05/25 03/06/25 03/06/25 20:01 08:12 12:15 POC Glucose 184 H 160 H 137 H 03/06/25 16:47 POC Glucose 179 H Current Inpatient Medications Current Inpatient Medications: Current Inpatient Medications Acetaminophen (Acetaminophen 325 Mg Tab) 650 mg PO Q4H PRN PRN Reason: Headache or Minor Fever Stop: 03/26/25 15:08 Buspirone HCl (Buspirone 15 Mg Tab) 15 mg PO QAM [facility] Stop: 03/28/25 08:59 Last Admin: 03/06/25 08:08 Dose: 15 mg Buspirone HCl (Buspirone 15 Mg Tab) 15 mg PO 2000 [facility] Stop: 03/27/25 19:59 Last Admin: 03/05/25 20:13 Dose: 15 mg Chlorpromazine HCl (Chlorpromazine Hcl 25 Mg Tab) 25 mg PO DAILY PRN PRN Reason: Agitation Stop: 04/03/25 13:08 Last Admin: 03/04/25 17:16 Dose: 25 mg Dextrose (Dextrose 50% 50 Ml Syringe) 25 - 50 ml IV UD PRN; Protocol PRN Reason: Hypoglycemia Protocol Stop: 03/26/25 16:29 Fluoxetine HCl (Fluoxetine Hcl 20 Mg Cap) [facility] Stop: 03/31/25 08:59 Last Admin: 03/06/25 08:08 Dose: 40 mg Glucagon (Glucagon For Inj 1 Mg Vial) 1 mg SQ UD PRN; Protocol PRN Reason: Hypoglycemia Protocol Stop: 03/26/25 16:29 Glucose (Glucose 40% Gel 15 Gm Tube) 15 - 30 gm PO UD PRN; Protocol PRN Reason: Hypoglycemia Protocol Stop: 03/26/25 16:29 Glucose (Glucose 10 Tab/Tube) 4 - 8 tab PO UD PRN; Protocol PRN Reason: Hypoglycemia Protocol Stop: 03/26/25 16:29 Hydroxyzine HCl (Hydroxyzine Hcl 25 Mg Tab) 50 mg PO HSZ PRN PRN Reason: Insomnia Stop: 03/26/25 15:08 Last Admin: 03/05/25 21:15 Dose: 50 mg Hydroxyzine HCl (Hydroxyzine Hcl 25 Mg Tab) 25 mg PO Q4H PRN PRN Reason: Anxiety Stop: 03/26/25 15:08 Last Admin: 03/03/25 14:07 Dose: 25 mg Insulin Aspart (Insulin Aspart Per Unit Charge) 0 units SC [facility] Stop: 03/26/25 17:14 Last Admin: 03/06/25 17:33 Dose: 10 units Insulin Glargine (Lantus Per Unit Charge) 6 units SQ HS [facility] Stop: 03/27/25 21:59 Last Admin: 03/05/25 20:12 Dose: 6 units Lorazepam (Lorazepam 1 Mg Tab) 1 mg PO TID PRN PRN Reason: panic attacks Stop: 04/03/25 13:04 Last Admin: 03/06/25 08:12 Dose: 1 mg Midodrine (Midodrine Hcl 2.5 Mg Tab) 5 mg PO [facility] Stop: 03/27/25 08:59 Last Admin: 03/06/25 08:08 Dose: 5 mg Midodrine (Midodrine Hcl 2.5 Mg Tab) 5 mg PO 1999 [facility] Stop: 03/26/25 19:59 Last Admin: 03/05/25 20:29 Dose: 5 mg Mirtazapine (Mirtazapine Tab 15 Mg Tab) 15 mg PO 1999 [facility] Stop: 03/26/25 19:59 Last Admin: 03/05/25 20:13 Dose: 15 mg Miscellaneous (Carbohydrates For Hypoglycemia ) 15 - 30 gm PO UD PRN PRN Reason: Hypoglycemia Treatment Stop: 03/26/25 16:29 Last Admin: 02/24/25 20:06 Dose: 15 gm Miscellaneous (Remove Nicoderm Patch) 1 each N/A DAILY@2100 [facility] Stop: 03/26/25 20:59 Last Admin: 03/05/25 20:15 Dose: 1 each Miscellaneous Information (Pharmacy Glycemic Mgmt Consult) 1 each N/A UD PRN; Protocol PRN Reason: Consult Stop: 03/26/25 15:57 Nicotine (Nicotine 14 Mg/24 Hr Patch) 1 patch TD [facility] Stop: 03/26/25 16:59 Last Admin: 03/06/25 08:08 Dose: 1 patch Risperidone (Risperidone Odt 0.5 Mg Soltab) 1 mg PO TID PRN PRN Reason: Agitation Stop: 04/03/25 11:21 Last Admin: 03/05/25 20:29 Dose: 1 mg Sodium Chloride (Sodium Chloride 0.65% Na Soln 45 Ml ([place])) 1 - 2 sprays NA PRN PRN PRN Reason: Nasal Dryness/Congestion Stop: 03/26/25 15:08 Mental Health & Subst Abuse Tx Psychiatrist Name of Psychiatrist: Sharita Abarca Psychiatrist's Date Of Appointment With Psychiatric Provider: 02/27/25 Psychiatric Appointment Comment: [facility] [place] [address] Therapist Name of Therapist: Sharita Abarca Therapist's Date of Therapist Appointment: 02/28/25 Therapy Appointment Comment: [address] [place], [place] [address] [id number] Post Discharge Appointments Primary Care Physician Name Of Family Doctor/PCP: Dr. T[place]on/ [place] Contact Information Discharge Discharge Address: [address] [place] [id number]
[2025-03-06] MEDS: MIRTAZAPINE TAB 15 MG TAB PO SCH (20:36)
[2025-03-06] MEDS ORDERED: MIRTAZAPINE TAB 15 MG TAB PO SCH (22:00)
--- NOTE | 2025-03-07 09:35 | Psychiatric Progress Note ---
Date of Service March 07, 2025 Impression / Recommendations Impression GARFIELD AYALA is a 44-year-old woman who currently lives in [place] with her mother, step-father, and adult daughters, has a history of major depressive disorder, generalized anxiety disorder, and just discharged from inpatient stay at [facility] three days ago and was admitted on 02/24/25 14:37 on a 201 voluntary commitment for SI with plan to overdose on medications. Diagnostically consistent with major depressive disorder with anxious distress and possible panic disorder versus borderline personality disorder as well as possible OCD component. Unclear what her baseline cognitive functioning has been, low suspicion for any type of early neurocognitive decline especially given report of normal MRI done recently at an outside hospital. A: Improving depression with resolved egodystonic homicidal ideations. At this time, the patient is primarily worried about her recently developed agoraphobia. She continues to express pessimistic thoughts requiring frequent reassurance. Patient is interested in managing her mental health with ECT. Patient education was discussed regarding the need to fulfill the trials prior to ECT approval. She expressed understanding that early discontinuation without reaching max recommended dose has led to multiple incomplete trials. Continuing to explore potential for EAC vs ECT depending on current treatment response over time. Patient got about 6.5 hours (1030 to 0500) of sleep per report (complained of not feeling well rested). Will continue to monitor. MNPR due to increased distress and new HI Overall, I spent a total of 25 minutes on this case including meeting with the patient, reviewing the chart, nursing report, multidisciplinary team meeting, orders, and documentation. (1) Suicidal ideation: (2) Recurrent severe major depressive disorder with anxiety: (3) Insomnia: Plan 03/07/2025: Will continue to develop specific realistic realistic expectations and explore coping skills Will prioritize managing insomnia due to its likely impact on her anxiety Continue Current Medications: Continue Mirtazapine 7.5 mg PO QHS @ 1999 Continue PRN Mirtazapine 7.5 mg QHS for interrupted sleep Prozac 40 mg PO QAM Buspar 15 mg PO BID ( and 1999) PRN Risperidone PO TID for anxiety/agitation; PRN Ativan 1 mg PO TID for acute anxiety refractory to Risperdal; PRN Vistaril 25 mg PO Q4H for mild anxiety PRN Thorazine 25 mg PO QD for management of acute DTO/DTS agitation/aggression PRN Vistaril 50 mg PO QHS for interrupted sleep refractory to PRN Mirtazapine 03/06/2025: Directed the patient to write down her treatment objectives to establish realistic expectations. Will prioritize managing insomnia due to its likely impact on her anxiety Continue Current Medications: Decrease to Mirtazapine 7.5 mg PO QHS @ 1999 (more sedating at lower doses) Start PRN Mirtazapine 7.5 mg QHS for interrupted sleep Prozac 40 mg PO QAM Buspar 15 mg PO BID ( and 1999) PRN Risperidone PO TID for anxiety/agitation; PRN Ativan 1 mg PO TID for acute anxiety refractory to Risperdal; PRN Vistaril 25 mg PO Q4H for mild anxiety PRN Thorazine 25 mg PO QD for management of acute DTO/DTS agitation/aggression PRN Vistaril 50 mg PO QHS for interrupted sleep refractory to PRN Mirtazapine 03/05/2025: Directed the patient to write down her treatment objectives to establish realistic expectations. Patient is currently open to long-term inpatient care as well as ECT. Continue Current Medications: Mirtazapine 15 mg PO QHS @ 1999 Prozac 40 mg PO QAM Buspar 15 mg PO BID ( and 1999) PRN Risperidone PO TID for anxiety/agitation; PRN Ativan 1 mg PO TID for acute anxiety refractory to Risperdal; PRN Vistaril 25 mg PO Q4H for mild anxiety PRN Thorazine 25 mg PO QD for management of acute DTO/DTS agitation/aggression PRN Vistaril 50 mg PO QHS for insomnia [patient advised to use for nighttime awakenings] 03/04/2025: -Start risperidone 1mg ODT TID prn for agitation -Valium 2mg one time dose due to distress -Discontinue Wellbutrin 03/03/2025 -Ongoing behavioral activation efforts -Encouraging use of exercise bike given previous foot surgery 03/02/2025: -Increase Wellbutrin XL to 300mg tomorrow 03/01/2025: -Discontinue Klonopin -Discontinue olanzapine -Start Wellbutrin XL 150mg tomorrow AM 02/28/2025: -Taper Klonopin to 0.5mg daily -Increase fluoxetine to 40mg daily -Increase olanzapine to 5mg HS 02/27/2025: -Start olanzapine 2.5mg HS -fasting lipid panel, HbA1c, Vit D, Vit B12, ESR, CRP tomorrow AM 02/26/2025: -Increase Klonopin to 1mg daily 02/25/2025: The patient was admitted to the [facility] ([facility]) on q15 min checks (behavioral with suicide precautions) for safety. The patient will participate in group, recreational, and milieu therapies and will be offered additional individual and family sessions as clinically appropriate. -Discontinue trazodone -Start fluoxetine 20mg daily -Increase Buspar to 15mg BID -Start Klonopin 0.5mg daily -Continue mirtazapine 15mg HS -Glycemic pharmacy consult for recommendations regarding need for and dosing for insulin -SW to explore barriers to functioning at home in recent months via family collateral and exploring options for increased support Inventory Assets Strengths: supportive relationships, willing to get treatment Needs: safety and stabilization, medication adjustment, additional coping skills, increased outpatient services Suicide Risk Level Suicide Risk Level: High-Moderate (q15 min suicide checks) (depression and SI and ego-dystonic HI without plan nor intent, no command AH and feels safe in the hospital and feels able to ask for support) Suicide Risk Level Comments: Risk Factors Assessment Male: No : Yes Do You Have Access To A Gun?: No Health Problems: Yes Mental Health Diagnoses: Yes Substance Use Disorders: No Previous Attempt: Yes Family History of Suicide: No Previous Psychiatric Hospitalization: Yes Hopelessness: Yes Protective Factors Assessment Employed: No Stable Relationships: Yes Supportive Family: Yes Interval History Identifying Information GARFIELD AYALA is a 44-year-old woman who currently lives in [place] with her mother, step-father, and adult daughters, has a history of major depressive disorder, generalized anxiety disorder, and just discharged from inpatient stay at [facility] three days ago and was admitted on 02/24/25 14:37 on a 201 voluntary commitment for SI with plan to overdose on medications. Chief Complaint "2 to out of 10" Review of Systems Sleep Information Total Hours of Sleep: 6.75 Meal Information Percent Meal Consumed - Breakfast: 75 Percent Meal Consumed - Lunch: 100 Percent Meal Consumed - Dinner: 100 Nutrition Comment: Also ate 4 saltine crackers. Subjective Subjective Patient was evaluated in the unit this morning. She reported her mood as "2 to out of 10," with preserved appetite and improved sleep. Patient disclosed sleeping through the night last night but complained of persisting fatigue. "It is like I didn't sleep," she stated. Patient agreed to continue monitoring the quality of her sleep over the next 3 days. Patient recited her goals of treatment as 1) to develop coping skills" 2) manage "anxiety and depression" 3) my sleep 4) being able to go out in public again and driving". We discussed identifying specific functional barriers preventing her from achieving these goals. The patient stated, "I'm not interested in doing things that I used to do... I shower, but I haven't gone to the doctor in almost a year Being able to sit and watch TV... I get anxious and I keep moving. I have to get up and walk, she explained. We discussed coping skills like opposite action and challenging automatic thoughts that can be used along with medication management. We developed an initial plan of listening to music while pacing and considering other interest for her to engage in while admitted. The patient expressed fears of never returning to normal. Her experience was validated and we discussed identifying her perception of normal. Patient reported no suicidal/homicidal ideations and no auditory/visual hallucinations at the time of this encounter. Interval progress reviewed with treatment team nursing and social work Physical Exam Psychiatric Orientation: alert and oriented x 3 Apperance: appropriately dressed and appropriately groomed; not disheveled Eye Contact: good eye contact Motor Behavior: no abnormal motor movements; no psychomotor agitation Speech: normal rate/rhythm/volume of speech; no loud speech Affect: + anxious affect and + constricted affect; no depressed affect, no flat affect, no tearful affect, no blunted affect and no labile affect Mood: + depressed mood ("2 out of 10") and + anxious mood Thought Process: goal directed thought process and + perseveration; thought process not circumstantial reassurance seeking Thought Content: reality based without delusions; no preoccupation, no cognitive distortions and no hopelessness Suicidal Thoughts: denies suicidal thoughts, denies suicidal plan and denies suicidal intent Homicidal Thoughts: denies homicidal thoughts, denies homicidal plan and denies homicidal intent Hallucinations: no auditory hallucinations and no visual hallucinations Cognition: recent memory grossly intact, remote memory grossly intact, attention grossly intact and language grossly intact Estimated Intelligence: consistent with education level and + below average estimated intelligence Insight: + limited insight and + fair insight Judgment: + limited judgement and + fair judgement Vital Signs (Past 24 Hours) Last Vital Signs Temp 36.7 C 03/07/25 06:25 Pulse 83 03/07/25 06:26 Resp 16 03/07/25 06:25 BP 87/57 L 03/07/25 06:26 Pulse Ox 98 03/02/25 06:22 O2 Del Method Room Air 03/02/25 06:22 Results & Data ([facility]) Laboratory Results Laboratory Results - last 24 hr 03/06/25 03/06/25 03/06/25 12:15 16:47 20:11 POC Glucose 137 H 179 H 145 H 03/07/25 07:51 POC Glucose 131 H Current Inpatient Medications Current Inpatient Medications: Current Inpatient Medications Acetaminophen (Acetaminophen 325 Mg Tab) 650 mg PO Q4H PRN PRN Reason: Headache or Minor Fever Stop: 03/26/25 15:08 Buspirone HCl (Buspirone 15 Mg Tab) 15 mg PO QAM [facility] Stop: 03/28/25 08:59 Last Admin: 03/07/25 08:27 Dose: 15 mg Buspirone HCl (Buspirone 15 Mg Tab) 15 mg PO 2000 [facility] Stop: 03/27/25 19:59 Last Admin: 03/06/25 20:35 Dose: 15 mg Chlorpromazine HCl (Chlorpromazine Hcl 25 Mg Tab) 25 mg PO DAILY PRN PRN Reason: Agitation Stop: 04/03/25 13:08 Last Admin: 03/04/25 17:16 Dose: 25 mg Dextrose (Dextrose 50% 50 Ml Syringe) 25 - 50 ml IV UD PRN; Protocol PRN Reason: Hypoglycemia Protocol Stop: 03/26/25 16:29 Fluoxetine HCl (Fluoxetine Hcl 20 Mg Cap) 40 mg PO QAM [facility] Stop: 03/31/25 08:59 Last Admin: 03/07/25 08:27 Dose: 40 mg Glucagon (Glucagon For Inj 1 Mg Vial) 1 mg SQ UD PRN; Protocol PRN Reason: Hypoglycemia Protocol Stop: 03/26/25 16:29 Glucose (Glucose 40% Gel 15 Gm Tube) 15 - 30 gm PO UD PRN; Protocol PRN Reason: Hypoglycemia Protocol Stop: 03/26/25 16:29 Glucose (Glucose 10 Tab/Tube) 4 - 8 tab PO UD PRN; Protocol PRN Reason: Hypoglycemia Protocol Stop: 03/26/25 16:29 Hydroxyzine HCl (Hydroxyzine Hcl 25 Mg Tab) 50 mg PO HSZ PRN PRN Reason: Insomnia Stop: 03/26/25 15:08 Last Admin: 03/05/25 21:15 Dose: 50 mg Hydroxyzine HCl (Hydroxyzine Hcl 25 Mg Tab) 25 mg PO Q4H PRN PRN Reason: Anxiety Stop: 03/26/25 15:08 Last Admin: 03/07/25 05:12 Dose: 25 mg Insulin Aspart (Insulin Aspart Per Unit Charge) 0 units SC ACHS [facility] Stop: 03/26/25 17:14 Last Admin: 03/07/25 08:56 Dose: 4 units Insulin Glargine (Lantus Per Unit Charge) 6 units SQ HS [facility] Stop: 03/27/25 21:59 Last Admin: 03/06/25 20:31 Dose: 6 units Lorazepam (Lorazepam 1 Mg Tab) 1 mg PO TID PRN PRN Reason: panic attacks Stop: 04/03/25 13:04 Last Admin: 03/06/25 08:12 Dose: 1 mg Midodrine (Midodrine Hcl 2.5 Mg Tab) 5 mg PO [facility] Stop: 03/27/25 08:59 Last Admin: 03/07/25 08:26 Dose: 5 mg Midodrine (Midodrine Hcl 2.5 Mg Tab) 5 mg PO 1999 [facility] Stop: 03/26/25 19:59 Last Admin: 03/06/25 20:36 Dose: 5 mg Mirtazapine (Mirtazapine Tab 15 Mg Tab) 7.5 mg PO HS PRN PRN Reason: insomnia Stop: 04/05/25 21:59 Mirtazapine (Mirtazapine Tab 15 Mg Tab) 7.5 mg PO 1999 [facility] Stop: 04/05/25 19:59 Last Admin: 03/06/25 20:36 Dose: 7.5 mg Miscellaneous (Carbohydrates For Hypoglycemia ) 15 - 30 gm PO UD PRN PRN Reason: Hypoglycemia Treatment Stop: 03/26/25 16:29 Last Admin: 02/24/25 20:06 Dose: 15 gm Miscellaneous (Remove Nicoderm Patch) 1 each N/A DAILY@2100 [facility] Stop: 03/26/25 20:59 Last Admin: 03/06/25 20:39 Dose: 1 each Miscellaneous Information (Pharmacy Glycemic Mgmt Consult) 1 each N/A UD PRN; Protocol PRN Reason: Consult Stop: 03/26/25 15:57 Nicotine (Nicotine 14 Mg/24 Hr Patch) 1 patch TD QAM [facility] Stop: 03/26/25 16:59 Last Admin: 03/07/25 08:31 Dose: 1 patch Risperidone (Risperidone Odt 0.5 Mg Soltab) 1 mg PO TID PRN PRN Reason: Agitation Stop: 04/03/25 11:21 Last Admin: 03/07/25 08:27 Dose: 1 mg Sodium Chloride (Sodium Chloride 0.65% Na Soln 45 Ml ([place])) 1 - 2 sprays NA PRN PRN PRN Reason: Nasal Dryness/Congestion Stop: 03/26/25 15:08 Mental Health & Subst Abuse Tx Psychiatrist Name of Psychiatrist: Sharita Abarca Psychiatrist's Date Of Appointment With Psychiatric Provider: 02/27/25 Psychiatric Appointment Comment: [address] [facility] [id number] Therapist Name of Therapist: Sharita Abarca Therapist's Date of Therapist Appointment: 02/28/25 Therapy Appointment Comment: [address] [facility] [address] Post Discharge Appointments Primary Care Physician Name Of Family Doctor/PCP: Dr. Tipton/ [place] Contact Information Discharge Discharge Address: [address] [place] [id number]
[2025-03-08] MEDS: MIRTAZAPINE TAB 15 MG TAB PO PRN (00:57)
--- NOTE | 2025-03-08 13:47 | Podiatry Consultation ---
Date of Consultation March 08, 2025 Assessment & Plan (1) Diabetes: Diabetes mellitus complication detail: with polyneuropathy Diabetes mellitus complication status: with neurologic complications Diabetes mellitus type: type 1 Qualified Code(s): E10.42 - Type 1 diabetes mellitus with diabetic polyneuropathy (2) Chronic ulcer of right foot limited to breakdown of skin: Plan Patient was examined and evaluated. We discussed at length etiology and treatment of her right foot neuropathic ulceration. This was sharply debrided with a tissue nipper and curette at bedside to the level of the dermis. This was dressed with an adhesive bandage. She would benefit from continued podiatry care outpatient, including nail care once she is discharged. We would be happy to follow-up with her, but she also has another outpatient podiatry group she sees already; if she can get back with them, she is welcome to. Either way, this minimal superficial ulceration should not need further intervention on this hospitalization. We will sign off for now, but are happy to see her if she worsens or the wound changes. Thank you for the consult. We're always happy to help out whenever possible. History of Present Illness Reason for Consultation: Right foot diabetic ulcer Attending Physician: Stacia Duran MD History of Present Illness Patient seen at bedside. She states that she is a longstanding type 2 diabetic, relying on insulin alone outpatient for blood sugar management. She states this is well controlled and never over 180 on a daily basis, but is usually in the 12 0s. Despite this, she has longstanding neuropathy and profound numbness to the bilateral feet. This has led to right 2nd toe ulceration and amputation earlier this year and, now, with sub 1st metatarsal ulceration. She believes this has been present for several weeks, but is unsure of the exact duration. She sees podiatry in [facility] as well, but has not followed up with them in several months, instead having her amputation performed in [place]. She was admitted here for suicidal ideations but does believe she is improving and pending a discharge to an inpatient psych rehab program, she states. Allergies Allergy/AdvReac Type Severity Reaction Status Date / Time mint Allergy Severe ASTHMA Verified 02/25/25 09:08 ATTACK aspirin Allergy Intermediate UNABLE TO Verified 07/30/14 14:01 BREATHE azithromycin Allergy Intermediate Hives Verified 06/19/19 14:44 dextromethorphan Allergy Intermediate asthma Verified 07/30/14 14:01 attack guaifenesin Allergy Intermediate asthma Verified 07/30/14 14:01 attack naproxen Allergy Intermediate SHORTNESS Verified 07/30/14 14:01 OF BREATH NSAIDS (Non-Steroidal Allergy Intermediate SHORTNESS Verified 07/30/14 14:01 Anti-Inflamma OF BREATH sumatriptan [From Treximet] Allergy Intermediate SHORTNESS Verified 06/19/19 14:44 OF BREATH beckett pepper Allergy Verified 02/25/25 09:08 Home Medications Medication Instructions Recorded Confirmed Type insulin aspart U-100 100 unit/mL sliding scale dose subcut AC 11/01/18 11/01/18 History (3 mL) subcutaneous pen (Novolog FlexPen U-100 Insulin aspart) buspirone 7.5 mg tablet 7.5 mg PO BID 02/24/25 02/24/25 History insulin glargine 100 unit/mL (3 20 unit subcut 1XD 02/24/25 02/24/25 History mL) subcutaneous pen (Lantus Solostar U-100 Insulin) midodrine 5 mg tablet 5 mg PO 2XD 02/24/25 02/24/25 History mirtazapine 15 mg tablet (Remeron) 15 mg PO HS 02/24/25 02/24/25 History trazodone 50 mg tablet 50 mg PO HS 02/24/25 02/24/25 History Patient History Medical History HTN (hypertension) Diabetes Neuropathy Fibromyalgia Surgical History S/P hysterectomy Social History Smoking Status: Current every day smoker Tobacco Type: Cigarettes Preferred Language: German Communication Ability: Effective Field Appraiser Required: No Beliefs That Will Affect Care: None marital status: Single current occupational status: unemployed Feels Safe at Home: Yes Gender Identity: Female Assistive Devices: None Review of Systems Review of Systems: All systems reviewed & are unremarkable except as noted in HPI & below Constitutional: no fever, no chills and no fatigue Eyes: no problem reported Ear, Nose, Mouth, Throat: no problem reported Respiratory: no problem reported Cardiovascular: + edema; no problem reported Gastrointestinal: no nausea, no vomiting and no problem reported Genitourinary: no problem reported Musculoskeletal: no problem reported Integumentary: + skin ulcer and + wounds; no erythema Neurologic: + loss of sensation, + numbness and + pa resthesia; no generalized weakness Psychiatric: no problem reported Physical Exam Physical Exam: Lower extremity focused exam: DP/PT pulses faintly palpable. Trophic changes noted bilaterally with thinned skin, absent hair growth, distal cooling, and prior well healed 2nd toe amputation site to right foot. Neuropathic ulceration noted sub 1st MTPJ limited to breakdown of the skin after sharp debridement of overlying callus. Wound measures 1.2 x 0.1cm and superficial. No drainage or purulence noted. CFT brisk to digits. Absent protective sensation noted. Constitutional: WD/WN, vitals as above + disheveled Eyes: PERRL, conjunctivae normal, anicteric sclerae ENMT: external ear and nose normal, oropharynx normal Mouth: + poor dentition Neck: trachea midline, no thyromegaly normal visual inspection Respiratory: normal respiratory effort; no respiratory distress Cardiovascular: Rate/Rhythm: regular rate and regular rhythm Vessels: posterior tibial pulses present and dorsalis pedis pulses present Extremities: normal capillary refill; no edema Chest (Breasts): Chest: normal inspection of chest Gastrointestinal (Abdomen): Percussion/Palpation: + abdomen tender and abdomen soft Musculoskeletal: no cyanosis or clubbing, extremities motor strength 5/5 Head/Neck/Chest: normocephalic and head atraumatic Extremities: extremities normal to inspection Skin: + ulcer, + skin atrophy, + dry skin, + n ail abnormality and + nails dystrophic; no erythema Neurologic: awake; no focal motor deficits Psychiatric: A+Ox3, euthymic affect Results & Data Vital Signs (Past 12 Hours) Vital Signs Temp Pulse Resp BP 03/08/25 06:16 75 91/60 L 03/08/25 06:15 36.4 C L 66 16 99/65 L
--- NOTE | 2025-03-08 15:13 | Psychiatric Progress Note ---
Date of Service March 08, 2025 Impression / Recommendations Impression GARFIELD AYALA is a 44-year-old woman who currently lives in [place] with her mother, step-father, and adult daughters, has a history of major depressive disorder, generalized anxiety disorder, and just discharged from inpatient stay at [facility] three days ago and was admitted on 02/24/25 14:37 on a 201 voluntary commitment for SI with plan to overdose on medications. Diagnostically consistent with major depressive disorder with anxious distress and possible panic disorder versus borderline personality disorder as well as possible OCD component. Unclear what her baseline cognitive functioning has been, low suspicion for any type of early neurocognitive decline especially given report of normal MRI done recently at an outside hospital. A: Improving depression with resolved egodystonic homicidal ideations. At this time, the patient is primarily worried about her recently developed agoraphobia. She continues to express pessimistic thoughts requiring frequent reassurance. Patient is interested in managing her mental health with ECT. Patient education was discussed regarding the need to fulfill the trials prior to ECT approval. She expressed understanding that early discontinuation without reaching max recommended dose has led to multiple incomplete trials. Continuing to explore potential for EAC vs ECT depending on current treatment response over time. Patient still planes of sleep disturbances. Will increase Prozac to manage residual anxiety and pessimistic thought patterns.Will continue to monitor. MNPR due to increased distress and new HI Overall, I spent a total of 25 minutes on this case including meeting with the patient, reviewing the chart, nursing report, multidisciplinary team meeting, orders, and documentation. (1) Suicidal ideation: (2) Recurrent severe major depressive disorder with anxiety: (3) Insomnia: Plan 03/08/2025: Will continue to develop specific realistic realistic expectations and explore coping skills Will prioritize managing insomnia due to its likely impact on her anxiety Continue Mirtazapine 7.5 mg PO QHS @ 1999 Continue PRN Mirtazapine 7.5 mg QHS for interrupted sleep Increase to Prozac 60 mg PO QAM Continue Buspar 15 mg PO BID (QA and 1999) Continue PRN Risperidone PO TID for anxiety/agitation; PRN Ativan 1 mg PO TID for acute anxiety refractory to Risperdal; PRN Vistaril 25 mg PO Q4H for mild anxiety Continue PRN Thorazine 25 mg PO QD for management of acute DTO/DTS agitation/aggression Continue PRN Vistaril 50 mg PO QHS for interrupted sleep refractory to PRN Mirtazapine 03/07/2025: Will continue to develop specific realistic realistic expectations and explore coping skills Will prioritize managing insomnia due to its likely impact on her anxiety Continue Current Medications: Continue Mirtazapine 7.5 mg PO QHS @ 1999 Continue PRN Mirtazapine 7.5 mg QHS for interrupted sleep Prozac 40 mg PO QAM Buspar 15 mg PO BID ( and 1999) PRN Risperidone PO TID for anxiety/agitation; PRN Ativan 1 mg PO TID for acute anxiety refractory to Risperdal; PRN Vistaril 25 mg PO Q4H for mild anxiety PRN Thorazine 25 mg PO QD for management of acute DTO/DTS agitation/aggression PRN Vistaril 50 mg PO QHS for interrupted sleep refractory to PRN Mirtazapine 03/06/2025: Directed the patient to write down her treatment objectives to establish realistic expectations. Will prioritize managing insomnia due to its likely impact on her anxiety Continue Current Medications: Decrease to Mirtazapine 7.5 mg PO QHS @ 1999 (more sedating at lower doses) Start PRN Mirtazapine 7.5 mg QHS for interrupted sleep Prozac 40 mg PO QAM Buspar 15 mg PO BID ( and 1999) PRN Risperidone PO TID for anxiety/agitation; PRN Ativan 1 mg PO TID for acute anxiety refractory to Risperdal; PRN Vistaril 25 mg PO Q4H for mild anxiety PRN Thorazine 25 mg PO QD for management of acute DTO/DTS agitation/aggression PRN Vistaril 50 mg PO QHS for interrupted sleep refractory to PRN Mirtazapine 03/05/2025: Directed the patient to write down her treatment objectives to establish realistic expectations. Patient is currently open to long-term inpatient care as well as ECT. Continue Current Medications: Mirtazapine 15 mg PO QHS @ 1999 Prozac 40 mg PO QAM Buspar 15 mg PO BID ( and 1999) PRN Risperidone PO TID for anxiety/agitation; PRN Ativan 1 mg PO TID for acute anxiety refractory to Risperdal; PRN Vistaril 25 mg PO Q4H for mild anxiety PRN Thorazine 25 mg PO QD for management of acute DTO/DTS agitation/aggression PRN Vistaril 50 mg PO QHS for insomnia [patient advised to use for nighttime awakenings] 03/04/2025: -Start risperidone 1mg ODT TID prn for agitation -Valium 2mg one time dose due to distress -Discontinue Wellbutrin 03/03/2025 -Ongoing behavioral activation efforts -Encouraging use of exercise bike given previous foot surgery 03/02/2025: -Increase Wellbutrin XL to 300mg tomorrow 03/01/2025: -Discontinue Klonopin -Discontinue olanzapine -Start Wellbutrin XL 150mg tomorrow AM 02/28/2025: -Taper Klonopin to 0.5mg daily -Increase fluoxetine to 40mg daily -Increase olanzapine to 5mg HS 02/27/2025: -Start olanzapine 2.5mg HS -fasting lipid panel, HbA1c, Vit D, Vit B12, ESR, CRP tomorrow AM 02/26/2025: -Increase Klonopin to 1mg daily 02/25/2025: The patient was admitted to the [facility] ([facility] mental health unit) on q15 min checks (behavioral with suicide precautions) for safety. The patient will participate in group, recreational, and milieu therapies and will be offered additional individual and family sessions as clinically appropriate. -Discontinue trazodone -Start fluoxetine 20mg daily -Increase Buspar to 15mg BID -Start Klonopin 0.5mg daily -Continue mirtazapine 15mg HS -Glycemic pharmacy consult for recommendations regarding need for and dosing for insulin -SW to explore barriers to functioning at home in recent months via family collateral and exploring options for increased support Inventory Assets Strengths: supportive relationships, willing to get treatment Needs: safety and stabilization, medication adjustment, additional coping skills, increased outpatient services Suicide Risk Level Suicide Risk Level: High-Moderate (q15 min suicide checks) (depression and SI and ego-dystonic HI without plan nor intent, no command AH and feels safe in the hospital and feels able to ask for support) Suicide Risk Level Comments: Risk Factors Assessment Male: No : Yes Do You Have Access To A Gun?: No Health Problems: Yes Mental Health Diagnoses: Yes Substance Use Disorders: No Previous Attempt: Yes Family History of Suicide: No Previous Psychiatric Hospitalization: Yes Hopelessness: Yes Protective Factors Assessment Employed: No Stable Relationships: Yes Supportive Family: Yes Interval History Identifying Information GARFIELD AYALA is a 44-year-old woman who currently lives in [place] with her mother, step-father, and adult daughters, has a history of major depressive disorder, generalized anxiety disorder, and just discharged from inpatient stay at [facility] three days ago and was admitted on 02/24/25 14:37 on a 201 voluntary commitment for SI with plan to overdose on medications. Chief Complaint "tired" Review of Systems Sleep Information Total Hours of Sleep: 6.75 Meal Information Percent Meal Consumed - Breakfast: 100 Percent Meal Consumed - Lunch: 100 Percent Meal Consumed - Dinner: 100 Nutrition Comment: Also ate 4 saltine crackers. Subjective Subjective Patient was evaluated on the unit this afternoon. She reported her mood as "better. Just very tired" with preserved appetite. The patient complained of disrupted sleep overnight. She fell asleep around 1030 and awoke at 1 AM. The as needed mirtazapine was effective in helping her fall asleep but she awoke within the hour. The patient could recall being checked on by the 215 monitor. She was encouraged to raise her hand to informed them of when she is awake in the future to ensure accurate reporting. The patient asked if her sleep medication should be changed. She was encouraged to maintain sleep hygiene efforts and continue to monitor her response to the mirtazapine. It was also noted that some of her fatigue may result from residual sedation from the mirtazapine, but that it will be clear until she is restored a healthy sleep schedule. The patient reported having no racing thoughts upon awakening last night stating, "I was kind of annoyed and very tired." The patient was amenable to increasing her Prozac to manage her residual anxiety. She reported experiencing no adverse reactions to the initial Prozac starting dose. Supportive and motivational therapy was provided. She was encouraged not to perseverate on bad days. Patient disclosed that meditating yesterday was helpful for her mood. He lets better the patient reported completing her EAC interview. She believes it went well. She remains open to receiving treatment for EAC stating, "I'm can just a little nervous." Patient admits that she has had pessimistic thoughts about the current plan but stated "it is just in my head." Patient had no further concerns. She reported experiencing no suicidal/homicidal ideations and auditory/visual hallucinations. Interval progress reviewed with [treatment team] [nursing and social work] Physical Exam Psychiatric Orientation: alert and oriented x 3 Apperance: appropriately dressed and appropriately groomed; not disheveled Eye Contact: good eye contact Motor Behavior: no abnormal motor movements; no psychomotor agitation Speech: normal rate/rhythm/volume of speech; no loud speech Affect: + anxious affect and + constricted affect; no depressed affect, no flat affect, no tearful affect, no blunted affect and no labile affect Mood: + anxious mood; no depressed mood ("better. Just very tired") Thought Process: goal directed thought process and + perseveration; thought process not circumstantial Thought Content: reality based without delusions; no preoccupation, no cognitive distortions and no hopelessness Suicidal Thoughts: denies suicidal thoughts, denies suicidal plan and denies suicidal intent Homicidal Thoughts: denies homicidal thoughts, denies homicidal plan and denies homicidal intent Hallucinations: no auditory hallucinations and no visual hallucinations Cognition: recent memory grossly intact, remote memory grossly intact, attention grossly intact and language grossly intact Estimated Intelligence: consistent with education level and + below average estimated intelligence Insight: + limited insight and + fair insight Judgment: + limited judgement and + fair judgement Vital Signs (Past 24 Hours) Last Vital Signs Temp 36.4 C L 03/08/25 06:15 Pulse 75 03/08/25 06:16 Resp 16 03/08/25 06:15 BP 91/60 L 03/08/25 06:16 Pulse Ox 98 03/02/25 06:22 O2 Del Method Room Air 03/02/25 06:22 Results & Data ([facility]) Laboratory Results Laboratory Results - last 24 hr 03/07/25 03/07/25 03/08/25 17:29 20:46 07:59 POC Glucose 123 H 174 H 138 H 03/08/25 11:58 POC Glucose 172 H Current Inpatient Medications Current Inpatient Medications: Current Inpatient Medications Acetaminophen (Acetaminophen 325 Mg Tab) 650 mg PO Q4H PRN PRN Reason: Headache or Minor Fever Stop: 03/26/25 15:08 Buspirone HCl (Buspirone 15 Mg Tab) 15 mg PO [facility] Stop: 03/28/25 08:59 Last Admin: 03/08/25 08:15 Dose: 15 mg Buspirone HCl (Buspirone 15 Mg Tab) 15 mg PO 2000 [facility] Stop: 03/27/25 19:59 Last Admin: 03/07/25 20:40 Dose: 15 mg Chlorpromazine HCl (Chlorpromazine Hcl 25 Mg Tab) 25 mg PO DAILY PRN PRN Reason: Agitation Stop: 04/03/25 13:08 Last Admin: 03/04/25 17:16 Dose: 25 mg Dextrose (Dextrose 50% 50 Ml Syringe) 25 - 50 ml IV UD PRN; Protocol PRN Reason: Hypoglycemia Protocol Stop: 03/26/25 16:29 Fluoxetine HCl (Fluoxetine Hcl 20 Mg Cap) 40 mg PO QAM [facility] Stop: 03/31/25 08:59 Last Admin: 03/08/25 08:15 Dose: 40 mg Glucagon (Glucagon For Inj 1 Mg Vial) 1 mg SQ UD PRN; Protocol PRN Reason: Hypoglycemia Protocol Stop: 03/26/25 16:29 Glucose (Glucose 40% Gel 15 Gm Tube) 15 - 30 gm PO UD PRN; Protocol PRN Reason: Hypoglycemia Protocol Stop: 03/26/25 16:29 Glucose (Glucose 10 Tab/Tube) 4 - 8 tab PO UD PRN; Protocol PRN Reason: Hypoglycemia Protocol Stop: 03/26/25 16:29 Hydroxyzine HCl (Hydroxyzine Hcl 25 Mg Tab) 50 mg PO HSZ PRN PRN Reason: Insomnia Stop: 03/26/25 15:08 Last Admin: 03/05/25 21:15 Dose: 50 mg Hydroxyzine HCl (Hydroxyzine Hcl 25 Mg Tab) 25 mg PO Q4H PRN PRN Reason: Anxiety Stop: 03/26/25 15:08 Last Admin: 03/08/25 10:07 Dose: 25 mg Insulin Aspart (Insulin Aspart Per Unit Charge) 0 units SC ACHS [facility] Stop: 03/26/25 17:14 Last Admin: 03/08/25 13:31 Dose: 6 units Insulin Glargine (Lantus Per Unit Charge) 6 units SQ HS [facility] Stop: 03/27/25 21:59 Last Admin: 03/07/25 20:53 Dose: 6 units Lorazepam (Lorazepam 1 Mg Tab) 1 mg PO TID PRN PRN Reason: panic attacks Stop: 04/03/25 13:04 Last Admin: 03/06/25 08:12 Dose: 1 mg Midodrine (Midodrine Hcl 2.5 Mg Tab) 5 mg PO QA [facility] Stop: 03/27/25 08:59 Last Admin: 03/08/25 08:16 Dose: 5 mg Midodrine (Midodrine Hcl 2.5 Mg Tab) 5 mg PO 1999 [facility] Stop: 03/26/25 19:59 Last Admin: 03/07/25 20:40 Dose: 5 mg Mirtazapine (Mirtazapine Tab 15 Mg Tab) 7.5 mg PO HS PRN PRN Reason: insomnia Stop: 04/05/25 21:59 Last Admin: 03/08/25 00:57 Dose: 7.5 mg Mirtazapine (Mirtazapine Tab 15 Mg Tab) 7.5 mg PO 1999 [facility] Stop: 04/05/25 19:59 Last Admin: 03/07/25 20:38 Dose: 7.5 mg Miscellaneous (Carbohydrates For Hypoglycemia ) 15 - 30 gm PO UD PRN PRN Reason: Hypoglycemia Treatment Stop: 03/26/25 16:29 Last Admin: 02/24/25 20:06 Dose: 15 gm Miscellaneous (Remove Nicoderm Patch) 1 each N/A DAILY@2100 [facility] Stop: 03/26/25 20:59 Last Admin: 03/07/25 20:43 Dose: 1 each Miscellaneous Information (Pharmacy Glycemic Mgmt Consult) 1 each N/A UD PRN; Protocol PRN Reason: Consult Stop: 03/26/25 15:57 Nicotine (Nicotine 14 Mg/24 Hr Patch) 1 patch TD [facility] Stop: 03/26/25 16:59 Last Admin: 03/08/25 08:16 Dose: 1 patch Risperidone (Risperidone Odt 0.5 Mg Soltab) 1 mg PO TID PRN PRN Reason: Agitation Stop: 04/03/25 11:21 Last Admin: 03/07/25 08:27 Dose: 1 mg Sodium Chloride (Sodium Chloride 0.65% Na Soln 45 Ml ([place])) 1 - 2 sprays NA PRN PRN PRN Reason: Nasal Dryness/Congestion Stop: 03/26/25 15:08 Mental Health & Subst Abuse Tx Psychiatrist Name of Psychiatrist: Sharita Abarca Psychiatrist's Date Of Appointment With Psychiatric Provider: 02/27/25 Psychiatric Appointment Comment: [address] [id number] Therapist Name of Therapist: Sharita Abarca Therapist's Date of Therapist Appointment: 02/28/25 Therapy Appointment Comment: [address] [id number] Post Discharge Appointments Primary Care Physician Name Of Family Doctor/PCP: Dr. T[place]/ [place] Contact Information Discharge Discharge Address: [address] [place] [id number]
--- NOTE | 2025-03-09 12:10 | Psychiatric Progress Note ---
Date of Service March 09, 2025 Impression / Recommendations Impression GARFIELD AYALA is a 44-year-old woman who currently lives in [place] with her mother, step-father, and adult daughters, has a history of major depressive disorder, generalized anxiety disorder, and just discharged from inpatient stay at [facility] three days ago and was admitted on 02/24/25 14:37 on a 201 voluntary commitment for SI with plan to overdose on medications. Diagnostically consistent with major depressive disorder with anxious distress and possible panic disorder versus borderline personality disorder as well as possible OCD component. Unclear what her baseline cognitive functioning has been, low suspicion for any type of early neurocognitive decline especially given report of normal MRI done recently at an outside hospital. A: Improving depression with resolved egodystonic homicidal ideations. At this time, the patient is primarily worried about her recently developed agoraphobia. She continues to express pessimistic thoughts requiring frequent reassurance. Patient is interested in managing her mental health with ECT. Patient education was discussed regarding the need to fulfill the trials prior to ECT approval. She expressed understanding that early discontinuation without reaching max recommended dose has led to multiple incomplete trials. Continuing to explore potential for EAC vs ECT depending on current treatment response over time. Patient still complains of sleep disturbances. Will continue to monitor with recent medication changes. MNPR due to increased distress and new HI Overall, I spent a total of 25 minutes on this case including meeting with the patient, reviewing the chart, nursing report, multidisciplinary team meeting, orders, and documentation. (1) Suicidal ideation: (2) Recurrent severe major depressive disorder with anxiety: (3) Insomnia: Plan 03/09/2025: Will continue to develop specific realistic realistic expectations and explore coping skills Will prioritize managing insomnia due to its likely impact on her anxiety Continue Mirtazapine 7.5 mg PO QHS @ 1999 Continue PRN Mirtazapine 7.5 mg QHS for interrupted sleep Continue Prozac 60 mg PO QAM Continue Buspar 15 mg PO BID (QA and 1999) Continue PRN Risperidone PO TID for anxiety/agitation; PRN Ativan 1 mg PO TID for acute anxiety refractory to Risperdal; PRN Vistaril 25 mg PO Q4H for mild anxiety Continue PRN Thorazine 25 mg PO QD for management of acute DTO/DTS agitation/aggression Continue PRN Vistaril 50 mg PO QHS for interrupted sleep refractory to PRN Mirtazapine 03/08/2025: Will continue to develop specific realistic realistic expectations and explore coping skills Will prioritize managing insomnia due to its likely impact on her anxiety Continue Mirtazapine 7.5 mg PO QHS @ 1999 Continue PRN Mirtazapine 7.5 mg QHS for interrupted sleep Increase to Prozac 60 mg PO QAM Continue Buspar 15 mg PO BID ( and 1999) Continue PRN Risperidone PO TID for anxiety/agitation; PRN Ativan 1 mg PO TID for acute anxiety refractory to Risperdal; PRN Vistaril 25 mg PO Q4H for mild anxiety Continue PRN Thorazine 25 mg PO QD for management of acute DTO/DTS agitation/aggression Continue PRN Vistaril 50 mg PO QHS for interrupted sleep refractory to PRN Mirtazapine 03/07/2025: Will continue to develop specific realistic realistic expectations and explore coping skills Will prioritize managing insomnia due to its likely impact on her anxiety Continue Current Medications: Continue Mirtazapine 7.5 mg PO QHS @ 1999 Continue PRN Mirtazapine 7.5 mg QHS for interrupted sleep Prozac 40 mg PO QAM Buspar 15 mg PO BID ( and 1999) PRN Risperidone PO TID for anxiety/agitation; PRN Ativan 1 mg PO TID for acute anxiety refractory to Risperdal; PRN Vistaril 25 mg PO Q4H for mild anxiety PRN Thorazine 25 mg PO QD for management of acute DTO/DTS agitation/aggression PRN Vistaril 50 mg PO QHS for interrupted sleep refractory to PRN Mirtazapine 03/06/2025: Directed the patient to write down her treatment objectives to establish realistic expectations. Will prioritize managing insomnia due to its likely impact on her anxiety Continue Current Medications: Decrease to Mirtazapine 7.5 mg PO QHS @ 1999 (more sedating at lower doses) Start PRN Mirtazapine 7.5 mg QHS for interrupted sleep Prozac 40 mg PO QAM Buspar 15 mg PO BID ( and 1999) PRN Risperidone PO TID for anxiety/agitation; PRN Ativan 1 mg PO TID for acute anxiety refractory to Risperdal; PRN Vistaril 25 mg PO Q4H for mild anxiety PRN Thorazine 25 mg PO QD for management of acute DTO/DTS agitation/aggression PRN Vistaril 50 mg PO QHS for interrupted sleep refractory to PRN Mirtazapine 03/05/2025: Directed the patient to write down her treatment objectives to establish realistic expectations. Patient is currently open to long-term inpatient care as well as ECT. Continue Current Medications: Mirtazapine 15 mg PO QHS @ 1999 Prozac 40 mg PO QAM Buspar 15 mg PO BID ( and 1999) PRN Risperidone PO TID for anxiety/agitation; PRN Ativan 1 mg PO TID for acute anxiety refractory to Risperdal; PRN Vistaril 25 mg PO Q4H for mild anxiety PRN Thorazine 25 mg PO QD for management of acute DTO/DTS agitation/aggression PRN Vistaril 50 mg PO QHS for insomnia [patient advised to use for nighttime awakenings] 03/04/2025: -Start risperidone 1mg ODT TID prn for agitation -Valium 2mg one time dose due to distress -Discontinue Wellbutrin 03/03/2025 -Ongoing behavioral activation efforts -Encouraging use of exercise bike given previous foot surgery 03/02/2025: -Increase Wellbutrin XL to 300mg tomorrow 03/01/2025: -Discontinue Klonopin -Discontinue olanzapine -Start Wellbutrin XL 150mg tomorrow AM 02/28/2025: -Taper Klonopin to 0.5mg daily -Increase fluoxetine to 40mg daily -Increase olanzapine to 5mg HS 02/27/2025: -Start olanzapine 2.5mg HS -fasting lipid panel, HbA1c, Vit D, Vit B12, ESR, CRP tomorrow AM 02/26/2025: -Increase Klonopin to 1mg daily 02/25/2025: The patient was admitted to the [facility] on q15 min checks (behavioral with suicide precautions) for safety. The patient will participate in group, recreational, and milieu therapies and will be offered additional individual and family sessions as clinically appropriate. -Discontinue trazodone -Start fluoxetine 20mg daily -Increase Buspar to 15mg BID -Start Klonopin 0.5mg daily -Continue mirtazapine 15mg HS -Glycemic pharmacy consult for recommendations regarding need for and dosing for insulin -SW to explore barriers to functioning at home in recent months via family collateral and exploring options for increased support Inventory Assets Strengths: supportive relationships, willing to get treatment Needs: safety and stabilization, medication adjustment, additional coping skills, increased outpatient services Suicide Risk Level Suicide Risk Level: High-Moderate (q15 min suicide checks) (depression and SI and ego-dystonic HI without plan nor intent, no command AH and feels safe in the hospital and feels able to ask for support) Suicide Risk Level Comments: Risk Factors Assessment Male: No : Yes Do You Have Access To A Gun?: No Health Problems: Yes Mental Health Diagnoses: Yes Substance Use Disorders: No Previous Attempt: Yes Family History of Suicide: No Previous Psychiatric Hospitalization: Yes Hopelessness: Yes Protective Factors Assessment Employed: No Stable Relationships: Yes Supportive Family: Yes Interval History Identifying Information GARFIELD AYALA is a 44-year-old woman who currently lives in [place] with her mother, step-father, and adult daughters, has a history of major depressive disorder, generalized anxiety disorder, and just discharged from inpatient stay at [facility] three days ago and was admitted on 02/24/25 14:37 on a 201 voluntary commitment for SI with plan to overdose on medications. Chief Complaint "[]". Review of Systems Sleep Information Total Hours of Sleep: 5 Meal Information Percent Meal Consumed - Breakfast: 100 Percent Meal Consumed - Lunch: 100 Percent Meal Consumed - Dinner: 100 Nutrition Comment: Also ate 4 saltine crackers. Subjective Subjective Patient was evaluated on the unit this morning. She was found coloring in the activity room. Keeps me busy," she stated. The patient reported her mood as "a little better than yesterday, with "not too good" sleep, noting that it was difficult due to her roommate's distress. She otherwise had no specific concerns. The patient reports that she has been listening to headphones and walking as planned. She reported experiencing no suicidal/homicidal ideations and no auditory/visual hallucinations. Interval progress reviewed with treatment team nursing and social work Physical Exam Psychiatric A+Ox3, euthymic affect Orientation: alert and oriented x 3 Apperance: appropriately dressed and appropriately groomed; not disheveled Eye Contact: good eye contact Motor Behavior: no abnormal motor movements; no psychomotor agitation Speech: normal rate/rhythm/volume of speech; no loud speech Affect: + anxious affect and + constricted affect; no depressed affect, no flat affect, no tearful affect, no blunted affect and no labile affect Mood: + anxious mood; no depressed mood ("a little better than yesterday") Thought Process: goal directed thought process and + perseveration; thought process not circumstantial Thought Content: reality based without delusions; no preoccupation, no cognitive distortions and no hopelessness Suicidal Thoughts: denies suicidal thoughts, denies suicidal plan and denies suicidal intent Homicidal Thoughts: denies homicidal thoughts, denies homicidal plan and denies homicidal intent Hallucinations: no auditory hallucinations and no visual hallucinations Cognition: recent memory grossly intact, remote memory grossly intact, attention grossly intact and language grossly intact Estimated Intelligence: consistent with education level and + below average estimated intelligence Insight: + limited insight and + fair insight Judgment: + limited judgement and + fair judgement Vital Signs (Past 24 Hours) Last Vital Signs Temp 36.7 C 03/09/25 06:17 Pulse 76 03/09/25 06:18 Resp 16 03/09/25 06:17 BP 116/78 03/09/25 06:18 Pulse Ox 98 03/02/25 06:22 O2 Del Method Room Air 03/02/25 06:22 Results & Data ([facility]) Laboratory Results Laboratory Results - last 24 hr 03/08/25 03/08/25 03/09/25 17:25 20:46 07:58 POC Glucose 102 H 167 H 131 H 03/09/25 12:08 POC Glucose Pending Current Inpatient Medications Current Inpatient Medications: Current Inpatient Medications Acetaminophen (Acetaminophen 325 Mg Tab) 650 mg PO Q4H PRN PRN Reason: Headache or Minor Fever Stop: 03/26/25 15:08 Buspirone HCl (Buspirone 15 Mg Tab) 15 mg PO QA [facility] Stop: 03/28/25 08:59 Last Admin: 03/09/25 08:24 Dose: 15 mg Buspirone HCl (Buspirone 15 Mg Tab) 15 mg PO 1999 [facility] Stop: 03/27/25 19:59 Last Admin: 03/08/25 20:37 Dose: 15 mg Chlorpromazine HCl (Chlorpromazine Hcl 25 Mg Tab) 25 mg PO DAILY PRN PRN Reason: Agitation Stop: 04/03/25 13:08 Last Admin: 03/04/25 17:16 Dose: 25 mg Dextrose (Dextrose 50% 50 Ml Syringe) 25 - 50 ml IV UD PRN; Protocol PRN Reason: Hypoglycemia Protocol Stop: 03/26/25 16:29 Fluoxetine HCl (Fluoxetine Hcl 20 Mg Cap) 60 mg PO QAM [facility] Stop: 04/08/25 08:59 Last Admin: 03/09/25 08:24 Dose: 60 mg Glucagon (Glucagon For Inj 1 Mg Vial) 1 mg SQ UD PRN; Protocol PRN Reason: Hypoglycemia Protocol Stop: 03/26/25 16:29 Glucose (Glucose 40% Gel 15 Gm Tube) 15 - 30 gm PO UD PRN; Protocol PRN Reason: Hypoglycemia Protocol Stop: 03/26/25 16:29 Glucose (Glucose 10 Tab/Tube) 4 - 8 tab PO UD PRN; Protocol PRN Reason: Hypoglycemia Protocol Stop: 03/26/25 16:29 Hydroxyzine HCl (Hydroxyzine Hcl 25 Mg Tab) 50 mg PO HSZ PRN PRN Reason: Insomnia Stop: 03/26/25 15:08 Last Admin: 03/05/25 21:15 Dose: 50 mg Hydroxyzine HCl (Hydroxyzine Hcl 25 Mg Tab) 25 mg PO Q4H PRN PRN Reason: Anxiety Stop: 03/26/25 15:08 Last Admin: 03/08/25 10:07 Dose: 25 mg Insulin Aspart (Insulin Aspart Per Unit Charge) 0 units SC ACHS [facility] Stop: 03/26/25 17:14 Last Admin: 03/09/25 09:35 Dose: 4 units Insulin Glargine (Lantus Per Unit Charge) 6 units SQ HS [facility] Stop: 03/27/25 21:59 Last Admin: 03/08/25 20:52 Dose: 6 units Lorazepam (Lorazepam 1 Mg Tab) 1 mg PO TID PRN PRN Reason: panic attacks Stop: 04/03/25 13:04 Last Admin: 03/06/25 08:12 Dose: 1 mg Midodrine (Midodrine Hcl 2.5 Mg Tab) 5 mg PO QAM [facility] Stop: 03/27/25 08:59 Last Admin: 03/09/25 08:24 Dose: 5 mg Midodrine (Midodrine Hcl 2.5 Mg Tab) 5 mg PO 2000 [facility] Stop: 03/26/25 19:59 Last Admin: 03/08/25 20:39 Dose: 5 mg Mirtazapine (Mirtazapine Tab 15 Mg Tab) 7.5 mg PO HS PRN PRN Reason: insomnia Stop: 04/05/25 21:59 Last Admin: 03/09/25 02:41 Dose: 7.5 mg Mirtazapine (Mirtazapine Tab 15 Mg Tab) 7.5 mg PO 1999 [facility] Stop: 04/05/25 19:59 Last Admin: 03/08/25 20:37 Dose: 7.5 mg Miscellaneous (Carbohydrates For Hypoglycemia ) 15 - 30 gm PO UD PRN PRN Reason: Hypoglycemia Treatment Stop: 03/26/25 16:29 Last Admin: 02/24/25 20:06 Dose: 15 gm Miscellaneous (Remove Nicoderm Patch) 1 each N/A DAILY@2100 [facility] Stop: 03/26/25 20:59 Last Admin: 03/08/25 20:40 Dose: 1 each Miscellaneous Information (Pharmacy Glycemic Mgmt Consult) 1 each N/A UD PRN; Protocol PRN Reason: Consult Stop: 03/26/25 15:57 Nicotine (Nicotine 14 Mg/24 Hr Patch) 1 patch TD QAM [facility] Stop: 03/26/25 16:59 Last Admin: 03/09/25 08:24 Dose: 1 patch Risperidone (Risperidone Odt 0.5 Mg Soltab) 1 mg PO TID PRN PRN Reason: Agitation Stop: 04/03/25 11:21 Last Admin: 03/07/25 08:27 Dose: 1 mg Sodium Chloride (Sodium Chloride 0.65% Na Soln 45 Ml ([place])) 1 - 2 sprays NA PRN PRN PRN Reason: Nasal Dryness/Congestion Stop: 03/26/25 15:08 Mental Health & Subst Abuse Tx Psychiatrist Name of Psychiatrist: Sharita Abarca Psychiatrist's Date Of Appointment With Psychiatric Provider: 02/27/25 Psychiatric Appointment Comment: [place] [id number] Therapist Name of Therapist: Sharita Abarca Therapist's Date of Therapist Appointment: 02/28/25 Therapy Appointment Comment: [address] [place] [address] [place] [id number] Post Discharge Appointments Primary Care Physician Name Of Family Doctor/PCP: Dr. Tipton/ [place] Contact Information Discharge Discharge Address: [address] [place] [id number]
--- NOTE | 2025-03-09 12:56 | Pharmacy Report ---
Pharmacy Glycemic Sign Off Nt - Date of Service March 09, 2025 - Assessment & Plan ASSESSMENT: * Pharmacy was consulted by Dr Duran on 02/24/25 for glycemic control and to write orders per [facility] inpatient glycemic control protocol. * Major changes made by pharmacy to inpatient regimen include: * Lantus adjusted to 6 units HS * Novolog correction factor 40, Carb ratio 15 * Patient has been receiving/requiring ~22-23 units of insulin per day for adequate glycemic control * BSGs ranging 102 189 mg/dl in the past 48 hours * Regimen has required no adjustments since 03/02 * Do not anticipate further changes in patient status that would quickly deteriorate glycemic control (i.e. patient to be NPO for upcoming procedure, steroids tapering, starting tube feedings, etc). * Patient can likely resume outpatient regimen on discharge if no significant problems identified. PLAN FOR INPATIENT GLYCEMIC CONTROL: No changes needed to current regimen. * Continue basal insulin with Lantus 6 units SQ HS * Continue NovoLog per scale ACHS/Q6hrs while NPO * Goal range = 110 140 mg/dl * CF = 40 mg/dl/unit * CR = 1 unit for ever 15 g CHO consumed * Pharmacy is signing off of glycemic consult and will no longer be making adjustments to inpatient regimen. Please feel free to re-consult if needed. Thank you.
--- NOTE | 2025-03-10 09:48 | Psychiatric Progress Note ---
Date of Service March 10, 2025 Impression / Recommendations Impression GARFIELD AYALA is a 44-year-old woman who currently lives in [place] with her mother, step-father, and adult daughters, has a history of major depressive disorder, generalized anxiety disorder, and just discharged from inpatient stay at [facility] three days ago and was admitted on 02/24/25 14:37 on a 201 voluntary commitment for SI with plan to overdose on medications. Diagnostically consistent with major depressive disorder with anxious distress and possible panic disorder versus borderline personality disorder as well as possible OCD component. Unclear what her baseline cognitive functioning has been, low suspicion for any type of early neurocognitive decline especially given report of normal MRI done recently at an outside hospital. A: Ongoing depression and anxiety but less perseverative and ruminative today. Still reports poor sleep but agrees it could be that she wakes feeling fatigued and therefore assumes she hasn't slept. Overall, I spent a total of 50 minutes on this case including meeting with the patient, reviewing the chart, nursing report, multidisciplinary team meeting, orders, and documentation. (1) Suicidal ideation: (2) Recurrent severe major depressive disorder with anxiety: (3) Insomnia: Plan 03/10/2025: -Continue current medications and tx plan 03/09/2025: Will continue to develop specific realistic realistic expectations and explore coping skills Will prioritize managing insomnia due to its likely impact on her anxiety Continue Mirtazapine 7.5 mg PO QHS @ 1999 Continue PRN Mirtazapine 7.5 mg QHS for interrupted sleep Continue Prozac 60 mg PO QAM Continue Buspar 15 mg PO BID ( and 1999) Continue PRN Risperidone PO TID for anxiety/agitation; PRN Ativan 1 mg PO TID for acute anxiety refractory to Risperdal; PRN Vistaril 25 mg PO Q4H for mild anxiety Continue PRN Thorazine 25 mg PO QD for management of acute DTO/DTS agitation/aggression Continue PRN Vistaril 50 mg PO QHS for interrupted sleep refractory to PRN Mirtazapine 03/08/2025: Will continue to develop specific realistic realistic expectations and explore coping skills Will prioritize managing insomnia due to its likely impact on her anxiety Continue Mirtazapine 7.5 mg PO QHS @ 1999 Continue PRN Mirtazapine 7.5 mg QHS for interrupted sleep Increase to Prozac 60 mg PO QAM Continue Buspar 15 mg PO BID ( and 1999) Continue PRN Risperidone PO TID for anxiety/agitation; PRN Ativan 1 mg PO TID for acute anxiety refractory to Risperdal; PRN Vistaril 25 mg PO Q4H for mild anxiety Continue PRN Thorazine 25 mg PO QD for management of acute DTO/DTS agitation/aggression Continue PRN Vistaril 50 mg PO QHS for interrupted sleep refractory to PRN Mirtazapine 03/07/2025: Will continue to develop specific realistic realistic expectations and explore coping skills Will prioritize managing insomnia due to its likely impact on her anxiety Continue Current Medications: Continue Mirtazapine 7.5 mg PO QHS @ 1999 Continue PRN Mirtazapine 7.5 mg QHS for interrupted sleep Prozac 40 mg PO QAM Buspar 15 mg PO BID ( and 1999) PRN Risperidone PO TID for anxiety/agitation; PRN Ativan 1 mg PO TID for acute anxiety refractory to Risperdal; PRN Vistaril 25 mg PO Q4H for mild anxiety PRN Thorazine 25 mg PO QD for management of acute DTO/DTS agitation/aggression PRN Vistaril 50 mg PO QHS for interrupted sleep refractory to PRN Mirtazapine 03/06/2025: Directed the patient to write down her treatment objectives to establish realistic expectations. Will prioritize managing insomnia due to its likely impact on her anxiety Continue Current Medications: Decrease to Mirtazapine 7.5 mg PO QHS @ 1999 (more sedating at lower doses) Start PRN Mirtazapine 7.5 mg QHS for interrupted sleep Prozac 40 mg PO QAM Buspar 15 mg PO BID ( and 1999) PRN Risperidone PO TID for anxiety/agitation; PRN Ativan 1 mg PO TID for acute anxiety refractory to Risperdal; PRN Vistaril 25 mg PO Q4H for mild anxiety PRN Thorazine 25 mg PO QD for management of acute DTO/DTS agitation/aggression PRN Vistaril 50 mg PO QHS for interrupted sleep refractory to PRN Mirtazapine 03/05/2025: Directed the patient to write down her treatment objectives to establish realistic expectations. Patient is currently open to long-term inpatient care as well as ECT. Continue Current Medications: Mirtazapine 15 mg PO QHS @ 1999 Prozac 40 mg PO QAM Buspar 15 mg PO BID ( and 1999) PRN Risperidone PO TID for anxiety/agitation; PRN Ativan 1 mg PO TID for acute anxiety refractory to Risperdal; PRN Vistaril 25 mg PO Q4H for mild anxiety PRN Thorazine 25 mg PO QD for management of acute DTO/DTS agitation/aggression PRN Vistaril 50 mg PO QHS for insomnia [patient advised to use for nighttime awakenings] 03/04/2025: -Start risperidone 1mg ODT TID prn for agitation -Valium 2mg one time dose due to distress -Discontinue Wellbutrin 03/03/2025 -Ongoing behavioral activation efforts -Encouraging use of exercise bike given previous foot surgery 03/02/2025: -Increase Wellbutrin XL to 300mg tomorrow 03/01/2025: -Discontinue Klonopin -Discontinue olanzapine -Start Wellbutrin XL 150mg tomorrow AM 02/28/2025: -Taper Klonopin to 0.5mg daily -Increase fluoxetine to 40mg daily -Increase olanzapine to 5mg HS 02/27/2025: -Start olanzapine 2.5mg HS -fasting lipid panel, HbA1c, Vit D, Vit B12, ESR, CRP tomorrow AM 02/26/2025: -Increase Klonopin to 1mg daily 02/25/2025: The patient was admitted to the [facility] ([facility] mental health unit) on q15 min checks (behavioral with suicide precautions) for safety. The patient will participate in group, recreational, and milieu therapies and will be offered additional individual and family sessions as clinically appropriate. -Discontinue trazodone -Start fluoxetine 20mg daily -Increase Buspar to 15mg BID -Start Klonopin 0.5mg daily -Continue mirtazapine 15mg HS -Glycemic pharmacy consult for recommendations regarding need for and dosing for insulin -SW to explore barriers to functioning at home in recent months via family collateral and exploring options for increased support Inventory Assets Strengths: supportive relationships, willing to get treatment Needs: safety and stabilization, medication adjustment, additional coping skills, incre ased outpatient services Suicide Risk Level Suicide Risk Level: High-Moderate (q15 min suicide checks) (depression and SI wit anxiety but feels able to ask for support) Suicide Risk Level Comments: Risk Factors Assessment Male: No : Yes Do You Have Access To A Gun?: No Health Problems: Yes Mental Health Diagnoses: Yes Substance Use Disorders: No Previous Attempt: Yes Family History of Suicide: No Previous Psychiatric Hospitalization: Yes Hopelessness: Yes Protective Factors Assessment Employed: No Stable Relationships: Yes Supportive Family: Yes Interval History Identifying Information GARFIELD AYALA is a 44-year-old woman who currently lives in [place] with her mother, step-father, and adult daughters, has a history of major depressive disorder, generalized anxiety disorder, and just discharged from inpatient stay at [facility] three days ago and was admitted on 02/24/25 14:37 on a 201 voluntary commitment for SI with plan to overdose on medications. Chief Complaint "Terrible". Review of Systems Sleep Information Total Hours of Sleep: 8.5 Meal Information Percent Meal Consumed - Breakfast: 100 Percent Meal Consumed - Lunch: 100 Percent Meal Consumed - Dinner: 100 Nutrition Comment: Subjective Subjective Patient was seen & assessed and interval progress reviewed with nursing and social work. Attending groups. Tearful often. Continues to report incongruences with her subjective sleep amount and what staff observes for amount of sleep. Was awake once overnight and got prn mirtazapine. She's not waving or indicating to staff that she is awake. Last night she was facing the door and her eyes were closed when staff were checking in. Rated her mood as "1/10" and feeling tired. Today reports increased anxiety and that her mood is terrible. Is able to reflect that she had a stretch of a few days with lessened anxiety. Agrees that some might be due to anxiety about EAC and the car ride as she usually has panic attacks in the car. Discussed ways we could use medication before the drive to help with this. Physical Exam Psychiatric Orientation: alert and oriented x 3 Apperance: appropriately dressed and appropriately groomed Eye Contact: good eye contact Motor Behavior: + psychomotor agitation (pacing at times) Speech: + loud speech and normal rate/rhythm/volume of speech Affect: + depressed affect, + anxious affect, + tearful affect and + labile affect Mood: + depressed mood and + anxious mood Thought Process: + perseveration Thought Content: + preoccupation, + cognitive distortions, reality based without delusions and + hopelessness Suicidal Thoughts: denies suicidal plan and denies suicidal intent; + reports suicidal thoughts Homicidal Thoughts: denies homicidal thoughts, denies homicidal plan and denies homicidal intent Hallucinations: no auditory hallucinations and no visual hallucinations Cognition: recent memory grossly intact, remote memory grossly intact, attention grossly intact and language grossly intact Estimated Intelligence: + below average estimated intelligence Insight: + limited insight Judgment: + limited judgement Vital Signs (Past 24 Hours) Last Vital Signs Temp 36.6 C 03/10/25 06:40 Pulse 78 03/10/25 06:40 Resp 18 03/10/25 06:40 BP 118/78 03/10/25 06:43 Pulse Ox 98 03/10/25 06:40 O2 Del Method Room Air 03/10/25 06:40 Results & Data ([facility]) Laboratory Results Laboratory Results - last 24 hr 03/09/25 03/09/25 03/09/25 12:08 17:09 19:50 POC Glucose 189 H 138 H 240 H 03/10/25 08:15 POC Glucose 130 H Current Inpatient Medications Current Inpatient Medications: Current Inpatient Medications Acetaminophen (Acetaminophen 325 Mg Tab) 650 mg PO Q4H PRN PRN Reason: Headache or Minor Fever Stop: 03/26/25 15:08 Buspirone HCl (Buspirone 15 Mg Tab) 15 mg PO QAM [facility] Stop: 03/28/25 08:59 Last Admin: 03/10/25 08:08 Dose: 15 mg Buspirone HCl (Buspirone 15 Mg Tab) 15 mg PO 2000 [facility] Stop: 03/27/25 19:59 Last Admin: 03/09/25 20:15 Dose: 15 mg Chlorpromazine HCl (Chlorpromazine Hcl 25 Mg Tab) 25 mg PO DAILY PRN PRN Reason: Agitation Stop: 04/03/25 13:08 Last Admin: 03/04/25 17:16 Dose: 25 mg Dextrose (Dextrose 50% 50 Ml Syringe) 25 - 50 ml IV UD PRN; Protocol PRN Reason: Hypoglycemia Protocol Stop: 03/26/25 16:29 Fluoxetine HCl (Fluoxetine Hcl 20 Mg Cap) 60 mg PO QAM [facility] Stop: 04/08/25 08:59 Last Admin: 03/10/25 08:08 Dose: 60 mg Glucagon (Glucagon For Inj 1 Mg Vial) 1 mg SQ UD PRN; Protocol PRN Reason: Hypoglycemia Protocol Stop: 03/26/25 16:29 Glucose (Glucose 40% Gel 15 Gm Tube) 15 - 30 gm PO UD PRN; Protocol PRN Reason: Hypoglycemia Protocol Stop: 03/26/25 16:29 Glucose (Glucose 10 Tab/Tube) 4 - 8 tab PO UD PRN; Protocol PRN Reason: Hypoglycemia Protocol Stop: 03/26/25 16:29 Hydroxyzine HCl (Hydroxyzine Hcl 25 Mg Tab) 50 mg PO HSZ PRN PRN Reason: Insomnia Stop: 03/26/25 15:08 Last Admin: 03/05/25 21:15 Dose: 50 mg Hydroxyzine HCl (Hydroxyzine Hcl 25 Mg Tab) 25 mg PO Q4H PRN PRN Reason: Anxiety Stop: 03/26/25 15:08 Last Admin: 03/08/25 10:07 Dose: 25 mg Insulin Aspart (Insulin Aspart Per Unit Charge) 0 units SC ACHS [facility] Stop: 03/26/25 17:14 Last Admin: 03/10/25 09:03 Dose: 5 units Insulin Glargine (Lantus Per Unit Charge) 6 units SQ HS [facility] Stop: 03/27/25 21:59 Last Admin: 03/09/25 20:16 Dose: 6 units Lorazepam (Lorazepam 1 Mg Tab) 1 mg PO TID PRN PRN Reason: panic attacks Stop: 04/03/25 13:04 Last Admin: 03/06/25 08:12 Dose: 1 mg Midodrine (Midodrine Hcl 2.5 Mg Tab) 5 mg PO QAM [facility] Stop: 03/27/25 08:59 Last Admin: 03/10/25 08:08 Dose: 5 mg Midodrine (Midodrine Hcl 2.5 Mg Tab) 5 mg PO 1999 [facility] Stop: 03/26/25 19:59 Last Admin: 03/09/25 20:16 Dose: 5 mg Mirtazapine (Mirtazapine Tab 15 Mg Tab) 7.5 mg PO HS PRN PRN Reason: insomnia Stop: 04/05/25 21:59 Last Admin: 03/10/25 02:05 Dose: 7.5 mg Mirtazapine (Mirtazapine Tab 15 Mg Tab) 7.5 mg PO 1999 [facility] Stop: 04/05/25 19:59 Last Admin: 03/09/25 20:15 Dose: 7.5 mg Miscellaneous (Carbohydrates For Hypoglycemia ) 15 - 30 gm PO UD PRN PRN Reason: Hypoglycemia Treatment Stop: 03/26/25 16:29 Last Admin: 02/24/25 20:06 Dose: 15 gm Miscellaneous (Remove Nicoderm Patch) 1 each N/A DAILY@2100 [facility] Stop: 03/26/25 20:59 Last Admin: 03/09/25 20:25 Dose: 1 each Nicotine (Nicotine 14 Mg/24 Hr Patch) 1 patch TD QAM [facility] Stop: 03/26/25 16:59 Last Admin: 03/10/25 08:09 Dose: 1 patch Risperidone (Risperidone Odt 0.5 Mg Soltab) 1 mg PO TID PRN PRN Reason: Agitation Stop: 04/03/25 11:21 Last Admin: 03/09/25 16:45 Dose: 1 mg Sodium Chloride (Sodium Chloride 0.65% Na Soln 45 Ml (Storey)) 1 - 2 sprays NA PRN PRN PRN Reason: Nasal Dryness/Congestion Stop: 03/26/25 15:08 Mental Health & Subst Abuse Tx Psychiatrist Name of Psychiatrist: Sharita Abarca Psychiatrist's Date Of Appointment With Psychiatric Provider: 02/27/25 Psychiatric Appointment Comment: [address] [place] [id number] Therapist Name of Therapist: Sharita Abarca Therapist's Date of Therapist Appointment: 02/28/25 Therapy Appointment Comment: [address] [place] [id number] Post Discharge Appointments Primary Care Physician Name Of Family Doctor/PCP: Dr. Tipton/ [place] Contact Information Discharge Discharge Address: [address] [place] [address]
[2025-03-10] MEDS ORDERED: PHARMACY GLYCEMIC MGMT CONSULT PRN (10:04)
[2025-03-10] MEDS: PNEUMOCOCCAL VACCINE (PCV20) 20-VAL CONJ-DIP CRM/PF 0.5 ML SYR IM ONE (17:49)
--- NOTE | 2025-03-11 10:08 | Psychiatric Progress Note ---
Date of Service March 11, 2025 Impression / Recommendations Impression GARFIELD AYALA is a 44-year-old woman who currently lives in [place] with her mother, step-father, and adult daughters, has a history of major depressive disorder, generalized anxiety disorder, and just discharged from inpatient stay at [facility] three days ago and was admitted on 02/24/25 14:37 on a 201 voluntary commitment for SI with plan to overdose on medications. Diagnostically consistent with major depressive disorder with anxious distress and possible panic disorder versus borderline personality disorder as well as possible OCD component. Unclear what her baseline cognitive functioning has been, low suspicion for any type of early neurocognitive decline especially given report of normal MRI done recently at an outside hospital. A: Ongoing depression and anxiety but with some lessening of SI with risperidone. Will schedule this after lunch as off-label FDA use to help with ruminative thoughts. Reviewed this was off-label use and she consents to this. Discussed risks, benefits and alternatives. Reviewed side effects including but not limited to: movement (TD, NMS), cardiac (QTc prolongation), and metabolic (stroke, insulin resistance) and necessity for fasting lipid and glucose labwork (already done this admission) and AIMS done with score of 0. Overall, I spent a total of 38 minutes on this case including meeting with the patient, reviewing the chart, nursing report, multidisciplinary team meeting, orders, and documentation. (1) Suicidal ideation: (2) Recurrent severe major depressive disorder with anxiety: (3) Insomnia: Plan 03/11/2025: -Schedule risperidone 1mg qafternoon after lunch 03/10/2025: -Continue current medications and tx plan 03/09/2025: Will continue to develop specific realistic realistic expectations and explore coping skills Will prioritize managing insomnia due to its likely impact on her anxiety Continue Mirtazapine 7.5 mg PO QHS @ 1999 Continue PRN Mirtazapine 7.5 mg QHS for interrupted sleep Continue Prozac 60 mg PO QAM Continue Buspar 15 mg PO BID (QA and 1999) Continue PRN Risperidone PO TID for anxiety/agitation; PRN Ativan 1 mg PO TID for acute anxiety refractory to Risperdal; PRN Vistaril 25 mg PO Q4H for mild anxiety Continue PRN Thorazine 25 mg PO QD for management of acute DTO/DTS agitation/aggression Continue PRN Vistaril 50 mg PO QHS for interrupted sleep refractory to PRN Mirtazapine 03/08/2025: Will continue to develop specific realistic realistic expectations and explore coping skills Will prioritize managing insomnia due to its likely impact on her anxiety Continue Mirtazapine 7.5 mg PO QHS @ 1999 Continue PRN Mirtazapine 7.5 mg QHS for interrupted sleep Increase to Prozac 60 mg PO QAM Continue Buspar 15 mg PO BID ( and 1999) Continue PRN Risperidone PO TID for anxiety/agitation; PRN Ativan 1 mg PO TID for acute anxiety refractory to Risperdal; PRN Vistaril 25 mg PO Q4H for mild anxiety Continue PRN Thorazine 25 mg PO QD for management of acute DTO/DTS agitation/aggression Continue PRN Vistaril 50 mg PO QHS for interrupted sleep refractory to PRN Mirtazapine 03/07/2025: Will continue to develop specific realistic realistic expectations and explore coping skills Will prioritize managing insomnia due to its likely impact on her anxiety Continue Current Medications: Continue Mirtazapine 7.5 mg PO QHS @ 1999 Continue PRN Mirtazapine 7.5 mg QHS for interrupted sleep Prozac 40 mg PO QAM Buspar 15 mg PO BID ( and 1999) PRN Risperidone PO TID for anxiety/agitation; PRN Ativan 1 mg PO TID for acute anxiety refractory to Risperdal; PRN Vistaril 25 mg PO Q4H for mild anxiety PRN Thorazine 25 mg PO QD for management of acute DTO/DTS agitati on/aggression PRN Vistaril 50 mg PO QHS for interrupted sleep refractory to PRN Mirtazapine 03/06/2025: Directed the patient to write down her treatment objectives to establish realistic expectations. Will prioritize managing insomnia due to its likely impact on her anxiety Continue Current Medications: Decrease to Mirtazapine 7.5 mg PO QHS @ 1999 (more sedating at lower doses) Start PRN Mirtazapine 7.5 mg QHS for interrupted sleep Prozac 40 mg PO QAM Buspar 15 mg PO BID ( and 1999) PRN Risperidone PO TID for anxiety/agitation; PRN Ativan 1 mg PO TID for acute anxiety refractory to Risperdal; PRN Vistaril 25 mg PO Q4H for mild anxiety PRN Thorazine 25 mg PO QD for management of acute DTO/DTS agitation/aggression PRN Vistaril 50 mg PO QHS for interrupted sleep refractory to PRN Mirtazapine 03/05/2025: Directed the patient to write down her treatment objectives to establish realistic expectations. Patient is currently open to long-term inpatient care as well as ECT. Continue Current Medications: Mirtazapine 15 mg PO QHS @ 1999 Prozac 40 mg PO QAM Buspar 15 mg PO BID (QA and 1999) PRN Risperidone PO TID for anxiety/agitation; PRN Ativan 1 mg PO TID for acute anxiety refractory to Risperdal; PRN Vistaril 25 mg PO Q4H for mild anxiety PRN Thorazine 25 mg PO QD for management of acute DTO/DTS agitation/aggression PRN Vistaril 50 mg PO QHS for insomnia [patient advised to use for nighttime awakenings] 03/04/2025: -Start risperidone 1mg ODT TID prn for agitation -Valium 2mg one time dose due to distress -Discontinue Wellbutrin 03/03/2025 -Ongoing behavioral activation efforts -Encouraging use of exercise bike given previous foot surgery 03/02/2025: -Increase Wellbutrin XL to 300mg tomorrow 03/01/2025: -Discontinue Klonopin -Discontinue olanzapine -Start Wellbutrin XL 150mg tomorrow AM 02/28/2025: -Taper Klonopin to 0.5mg daily -Increase fluoxetine to 40mg daily -Increase olanzapine to 5mg HS 02/27/2025: -Start olanzapine 2.5mg HS -fasting lipid panel, HbA1c, Vit D, Vit B12, ESR, CRP tomorrow AM 02/26/2025: -Increase Klonopin to 1mg daily 02/25/2025: The patient was admitted to the [facility] ([facility] inpatient mental health unit) on q15 min checks (behavioral with suicide precautions) for safety. The patient will participate in group, recreational, and milieu therapies and will be offered additional individual and family sessions as clinically appropriate. -Discontinue trazodone -Start fluoxetine 20mg daily -Increase Buspar to 15mg BID -Start Klonopin 0.5mg daily -Continue mirtazapine 15mg HS -Glycemic pharmacy consult for recommendations regarding need for and dosing for insulin -SW to explore barriers to functioning at home in recent months via family collateral and exploring options for increased support Inventory Assets Strengths: supportive relationships, willing to get treatment Needs: safety and stabilization, medication adjustment, additional coping skills, increased outpatient services Suicide Risk Level Suicide Risk Level: Moderate (q15 min suicide checks) (depression and anxiety with SI but SI lessening a bit and feels able to ask for support) Suicide Risk Level Comments: Risk Factors Assessment Male: No : Yes Do You Have Access To A Gun?: No Health Problems: Yes Mental Health Diagnoses: Yes Substance Use Disorders: No Previous Attempt: Yes Family History of Suicide: No Previous Psychiatric Hospitalization: Yes Hopelessness: Yes Protective Factors Assessment Employed: No Stable Relationships: Yes Supportive Family: Yes Interval History Identifying Information GARFIELD AYALA is a 44-year-old woman who currently lives in [place] with her mother, step-father, and adult daughters, has a history of major depressive disorder, generalized anxiety disorder, and just discharged from inpatient stay at [facility] three days ago and was admitted on 02/24/25 14:37 on a 201 voluntary commitment for SI with plan to overdose on medications. Chief Complaint "Terrible". Review of Systems Sleep Information Total Hours of Sleep: 9 Meal Information Percent Meal Consumed - Breakfast: 75 Percent Meal Consumed - Lunch: 75 Percent Meal Consumed - Dinner: 100 Subjective Subjective Patient was seen & assessed and interval progress reviewed with nursing and social work. In the evening she requested prn risperidone but there was a delay in getting in from pharmacy so she got ativan instead. Last evening reported her mood a "2" and "anxious". This morning rated her mood a "1" and "anxious" but reported that she slept ok. Today reports feeling "terrible" due to ongoing anxiety. Continues to find risperidone helpful for lessening ruminative and suicidal thoughts, she'd like to have this as a scheduled medication after lunch which is when she finds her anxiety and depression worsens the most. She slept better last night. Feels her anxiety is still "really high" and endorses feeling restless and therefore has been pacing. Still agreeable to EAC. Physical Exam Psychiatric Orientation: alert and oriented x 3 Apperance: appropriately dressed and appropriately groomed Eye Contact: good eye contact Motor Behavior: + psychomotor agitation (pacing at times) Speech: normal rate/rhythm/volume of speech Affect: + depressed affect Mood: + depressed mood and + anxious mood Thought Process: + perseveration Thought Content: + preoccupation, + cognitive distortions and + hopelessness Suicidal Thoughts: denies suicidal plan and denies suicidal intent; + reports suicidal thoughts Homicidal Thoughts: denies homicidal thoughts, denies homicidal plan and denies homicidal intent Hallucinations: no auditory hallucinations and no visual hallucinations Cognition: recent memory grossly intact, remote memory grossly intact, attention grossly intact and language grossly intact Estimated Intelligence: + below average estimated intelligence Insight: + limited insight Judgment: + limited judgement Vital Signs (Past 24 Hours) Last Vital Signs Temp 37.3 C 03/11/25 06:37 Pulse 67 03/11/25 06:37 Resp 18 03/11/25 06:37 BP 127/86 03/11/25 06:39 Pulse Ox 98 03/11/25 06:37 O2 Del Method Room Air 03/11/25 06:37 Results & Data (U) Laboratory Results Laboratory Results - last 24 hr 03/10/25 03/10/25 03/10/25 12:08 17:07 20:05 POC Glucose 168 H 193 H 130 H 03/11/25 08:26 POC Glucose 119 H Current Inpatient Medications Current Inpatient Medications: Current Inpatient Medications Acetaminophen (Acetaminophen 325 Mg Tab) 650 mg PO Q4H PRN PRN Reason: Headache or Minor Fever Stop: 03/26/25 15:08 Buspirone HCl ([facility] 15 Mg Tab) [facility] Stop: 03/28/25 08:59 Last Admin: 03/11/25 08:32 Dose: 15 mg Buspirone HCl (Buspirone 15 Mg Tab) 15 mg PO 2000 [facility] Stop: 03/27/25 19:59 Last Admin: 03/10/25 20:20 Dose: 15 mg Chlorpromazine HCl (Chlorpromazine Hcl 25 Mg Tab) 25 mg PO DAILY PRN PRN Reason: Agitation Stop: 04/03/25 13:08 Last Admin: 03/04/25 17:16 Dose: 25 mg Dextrose (Dextrose 50% 50 Ml Syringe) 25 - 50 ml IV UD PRN; Protocol PRN Reason: Hypoglycemia Protocol Stop: 03/26/25 16:29 Fluoxetine HCl (Fluoxetine Hcl 20 Mg Cap) 60 mg PO QAM [facility] Stop: 04/08/25 08:59 Last Admin: 03/11/25 08:33 Dose: 60 mg Glucagon (Glucagon For Inj 1 Mg Vial) 1 mg SQ UD PRN; Protocol PRN Reason: Hypoglycemia Protocol Stop: 03/26/25 16:29 Glucose (Glucose 40% Gel 15 Gm Tube) 15 - 30 gm PO UD PRN; Protocol PRN Reason: Hypoglycemia Protocol Stop: 03/26/25 16:29 Glucose (Glucose 10 Tab/Tube) 4 - 8 tab PO UD PRN; Protocol PRN Reason: Hypoglycemia Protocol Stop: 03/26/25 16:29 Hydroxyzine HCl (Hydroxyzine Hcl 25 Mg Tab) 50 mg PO HSZ PRN PRN Reason: Insomnia Stop: 03/26/25 15:08 Last Admin: 03/05/25 21:15 Dose: 50 mg Hydroxyzine HCl (Hydroxyzine Hcl 25 Mg Tab) 25 mg PO Q4H PRN PRN Reason: Anxiety Stop: 03/26/25 15:08 Last Admin: 03/08/25 10:07 Dose: 25 mg Insulin Aspart (Insulin Aspart Per Unit Charge) 0 units SC ACHS [facility] Stop: 03/26/25 17:14 Last Admin: 03/11/25 09:03 Dose: 5 units Insulin Glargine (Lantus Per Unit Charge) 6 units SQ HS [facility] Stop: 03/27/25 21:59 Last Admin: 03/10/25 20:26 Dose: 6 units Lorazepam (Lorazepam 1 Mg Tab) 1 mg PO TID PRN PRN Reason: panic attacks Stop: 04/03/25 13:04 Last Admin: 03/10/25 19:22 Dose: 1 mg Midodrine (Midodrine Hcl 2.5 Mg Tab) 5 mg PO QAM [facility] Stop: 03/27/25 08:59 Last Admin: 03/11/25 08:33 Dose: 5 mg Midodrine (Midodrine Hcl 2.5 Mg Tab) 5 mg PO 2000 [facility] Stop: 03/26/25 19:59 Last Admin: 03/10/25 20:21 Dose: 5 mg Mirtazapine (Mirtazapine Tab 15 Mg Tab) 7.5 mg PO HS PRN PRN Reason: insomnia Stop: 04/05/25 21:59 Last Admin: 03/10/25 02:05 Dose: 7.5 mg Mirtazapine (Mirtazapine Tab 15 Mg Tab) 7.5 mg PO 1999 [facility] Stop: 04/05/25 19:59 Last Admin: 03/10/25 20:21 Dose: 7.5 mg Miscellaneous (Carbohydrates For Hypoglycemia ) 15 - 30 gm PO UD PRN PRN Reason: Hypoglycemia Treatment Stop: 03/26/25 16:29 Last Admin: 02/24/25 20:06 Dose: 15 gm Miscellaneous (Remove Nicoderm Patch) 1 each N/A DAILY@2100 [facility] Stop: 03/26/25 20:59 Last Admin: 03/10/25 20:27 Dose: 1 each Nicotine (Nicotine 14 Mg/24 Hr Patch) 1 patch TD QAM [facility] Stop: 03/26/25 16:59 Last Admin: 03/11/25 08:38 Dose: 1 patch Risperidone (Risperidone Odt 0.5 Mg Soltab) 1 mg PO TID PRN PRN Reason: Agitation Stop: 04/03/25 11:21 Last Admin: 03/10/25 12:37 Dose: 1 mg Sodium Chloride (Sodium Chloride 0.65% Na Soln 45 Ml ([place])) 1 - 2 sprays NA PRN PRN PRN Reason: Nasal Dryness/Congestion Stop: 03/26/25 15:08 Mental Health & Subst Abuse Tx Psychiatrist Name of Psychiatrist: Sharita Abarca Psychiatrist's Date Of Appointment With Psychiatric Provider: 02/27/25 Psychiatric Appointment Comment: [address] [place] [id number] Therapist Name of Therapist: Sharita Abarca Therapist's Date of Therapist Appointment: 02/28/25 Therapy Appointment Comment: [address] [place] [id number] Post Discharge Appointments Primary Care Physician Name Of Family Doctor/PCP: Dr. Tipton/ [place] Contact Information Discharge Discharge Address: [address] [place] [id number]
--- NOTE | 2025-03-12 08:53 | Psychiatric Progress Note ---
Date of Service March 12, 2025 Impression / Recommendations Impression GARFIELD AYALA is a 44-year-old woman who currently lives in [place] with her mother, step-father, and adult daughters, has a history of major depressive disorder, generalized anxiety disorder, and just discharged from inpatient stay at [facility] three days ago and was admitted on 02/24/25 14:37 on a 201 voluntary commitment for SI with plan to overdose on medications. Diagnostically consistent with major depressive disorder with anxious distress and possible panic disorder versus borderline personality disorder as well as possible OCD component. Unclear what her baseline cognitive functioning has been, low suspicion for any type of early neurocognitive decline especially given report of normal MRI done recently at an outside hospital. A: Ongoing depression and anxiety but lessening of SI and tolerated scheduled risperidone which she finds helpful. Awaiting decision from [facility] for ongoing treatment for depression and exposure work to help with re-acclimating to being in the community and doing things given previous isolation due to anxiety/panic attacks and depression. Ongoing psychoeducation about depression and timeline of anticipated symptom improvement. Overall, I spent a total of 35 minutes on this case including meeting with the patient, reviewing the chart, nursing report, multidisciplinary team meeting, orders, and documentation. (1) Suicidal ideation: (2) Recurrent severe major depressive disorder with anxiety: (3) Insomnia: Plan 03/12/2025: -Continue current medications and tx plan 03/11/2025: -Schedule risperidone 1mg qafternoon after lunch 03/10/2025: -Continue current medications and tx plan 03/09/2025: Will continue to develop specific realistic realistic expectations and explore coping skills Will prioritize managing insomnia due to its likely impact on her anxiety Continue Mirtazapine 7.5 mg PO QHS @ 1999 Continue PRN Mirtazapine 7.5 mg QHS for interrupted sleep Continue Prozac 60 mg PO QAM Continue Buspar 15 mg PO BID (QAM and 1999) Continue PRN Risperidone PO TID for anxiety/agitation; PRN Ativan 1 mg PO TID for acute anxiety refractory to Risperdal; PRN Vistaril 25 mg PO Q4H for mild anxiety Continue PRN Thorazine 25 mg PO QD for management of acute DTO/DTS agitation/aggression Continue PRN Vistaril 50 mg PO QHS for interrupted sleep refractory to PRN Mirtazapine 03/08/2025: Will continue to develop specific realistic realistic expectations and explore coping skills Will prioritize managing insomnia due to its likely impact on her anxiety Continue Mirtazapine 7.5 mg PO QHS @ 1999 Continue PRN Mirtazapine 7.5 mg QHS for interrupted sleep Increase to Prozac 60 mg PO QAM Continue Buspar 15 mg PO BID ( and 1999) Continue PRN Risperidone PO TID for anxiety/agitation; PRN Ativan 1 mg PO TID for acute anxiety refractory to Risperdal; PRN Vistaril 25 mg PO Q4H for mild anxiety Continue PRN Thorazine 25 mg PO QD for management of acute DTO/DTS agitation/aggression Continue PRN Vistaril 50 mg PO QHS for interrupted sleep refractory to PRN Mirtazapine 03/07/2025: Will continue to develop specific realistic realistic expectations and explore coping skills Will prioritize managing insomnia due to its likely impact on her anxiety Continue Current Medications: Continue Mirtazapine 7.5 mg PO QHS @ 1999 Continue PRN Mirtazapine 7.5 mg QHS for interrupted sleep Prozac 40 mg PO QAM Buspar 15 mg PO BID ( and 1999) PRN Risperidone PO TID for anxiety/agitation; PRN Ativan 1 mg PO TID for acute anxiety refractory to Risperdal; PRN Vistaril 25 mg PO Q4H for mild anxiety PRN Thorazine 25 mg PO QD for management of acute DTO/DTS agitation/aggression PRN Vistaril 50 mg PO QHS for interrupted sleep refractory to PRN Mirtazapine 03/06/2025: Directed the patient to write down her treatment objectives to establish realistic expectations. Will prioritize managing insomnia due to its likely impact on her anxiety Continue Current Medications: Decrease to Mirtazapine 7.5 mg PO QHS @ 1999 (more sedating at lower doses) Start PRN Mirtazapine 7.5 mg QHS for interrupted sleep Prozac 40 mg PO QAM Buspar 15 mg PO BID ( and 1999) PRN Risperidone PO TID for anxiety/agitation; PRN Ativan 1 mg PO TID for acute anxiety refractory to Risperdal; PRN Vistaril 25 mg PO Q4H for mild anxiety PRN Thorazine 25 mg PO QD for management of acute DTO/DTS agitation/aggression PRN Vistaril 50 mg PO QHS for interrupted sleep refractory to PRN Mirtazapine 03/05/2025: Directed the patient to write down her treatment objectives to establish realistic expectations. Patient is currently open to long-term inpatient care as well as ECT. Continue Current Medications: Mirtazapine 15 mg PO QHS @ 1999 Prozac 40 mg PO QAM Buspar 15 mg PO BID (QA and 1999) PRN Risperidone PO TID for anxiety/agitation; PRN Ativan 1 mg PO TID for acute anxiety refractory to Risperdal; PRN Vistaril 25 mg PO Q4H for mild anxiety PRN Thorazine 25 mg PO QD for management of acute DTO/DTS agitation/aggression PRN Vistaril 50 mg PO QHS for insomnia [patient advised to use for nighttime awakenings] 03/04/2025: -Start risperidone 1mg ODT TID prn for agitation -Valium 2mg one time dose due to distress -Discontinue Wellbutrin 03/03/2025 -Ongoing behavioral activation efforts -Encouraging use of exercise bike given previous foot surgery 03/02/2025: -Increase Wellbutrin XL to 300mg tomorrow 03/01/2025: -Discontinue Klonopin -Discontinue olanzapine -Start Wellbutrin XL 150mg tomorrow AM 02/28/2025: -Taper Klonopin to 0.5mg daily -Increase fluoxetine to 40mg daily -Increase olanzapine to 5mg HS 02/27/2025: -Start olanzapine 2.5mg HS -fasting lipid panel, HbA1c, Vit D, Vit B12, ESR, CRP tomorrow AM 02/26/2025: -Increase Klonopin to 1mg daily 02/25/2025: The patient was admitted to the [facility] ([facility]) on q15 min checks (behavioral with suicide precautions) for safety. The patient will participate in group, recreational, and milieu therapies and will be offered additional individual and family sessions as clinically appropriate. -Discontinue trazodone -Start fluoxetine 20mg daily -Increase Buspar to 15mg BID -Start Klonopin 0.5mg daily -Continue mirtazapine 15mg HS -Glycemic pharmacy consult for recommendations regarding need for and dosing for insulin -SW to explore barriers to functioning at home in recent months via family collateral and exploring options for increased support Inventory Assets Strengths: supportive relationships, willing to get treatment Needs: safety and stabilization, medication adjustment, additional coping skills, increased outpatient services Suicide Risk Level Suicide Risk Level: Moderate (q15 min suicide checks) (depression and anxiety with SI but SI lessening a bit and feels able to ask for support) Suicide Risk Level Comments: Risk Factors Assessment Male: No : Yes Do You Have Access To A Gun?: No Health Problems: Yes Mental Health Diagnoses: Yes Substance Use Disorders: No Previous Attempt: Yes Family History of Suicide: No Previous Psychiatric Hospitalization: Yes Hopelessness: Yes Protective Factors Assessment Employed: No Stable Relationships: Yes Supportive Family: Yes Interval History Identifying Information GARFIELD AYALA is a 44-year-old woman who currently lives in [place] with her mother, step-father, and adult daughters, has a history of major depressive disorder, generalized anxiety disorder, and just discharged from inpatient stay at [facility] three days ago and was admitted on 02/24/25 14:37 on a 201 voluntary commitment for SI with plan to overdose on medications. Chief Complaint "the same, my anxiety is really bad". Review of Systems Sleep Information Total Hours of Sleep: 7.5 Meal Information Percent Meal Consumed - Breakfast: 75 Percent Meal Consumed - Lunch: 100 Percent Meal Consumed - Dinner: 100 Subjective Subjective Patient was seen & assessed and interval progress reviewed with nursing. Got extra prn dose of mirtazapine overnight. Describes feeling "very tired" this morning. Attending groups. Today ongoing anxiety and depression. But some lessening of SI as today reports this is "not as bad, every once in awhile". Finding scheduled risperidone helpful. Feels tired today. Physical Exam Psychiatric Orientation: alert and oriented x 3 Apperance: appropriately dressed and appropriately groomed Eye Contact: good eye contact Motor Behavior: + psychomotor agitation (pacing at times) Speech: normal rate/rhythm/volume of speech Affect: + depressed affect Mood: + depressed mood and + anxious mood Thought Process: + perseveration Thought Content: + preoccupation, + cognitive distortions and + hopelessness Suicidal Thoughts: denies suicidal plan and denies suicidal intent; + reports suicidal thoughts (but lessening significantly) Homicidal Thoughts: denies homicidal thoughts, denies homicidal plan and denies homicidal intent Hallucinations: no auditory hallucinations and no visual hallucinations Cognition: recent memory grossly intact, remote memory grossly intact, attention grossly intact and language grossly intact Estimated Intelligence: + below average estimated intelligence Insight: + limited insight Judgment: + limited judgement Vital Signs (Past 24 Hours) Last Vital Signs Temp 36.7 C 03/12/25 06:28 Pulse 71 03/12/25 06:29 Resp 16 03/12/25 06:28 BP 100/69 03/12/25 06:29 Pulse Ox 98 03/11/25 06:37 O2 Del Method Room Air 03/11/25 06:37 Results & Data ([facility]) Laboratory Results Laboratory Results - last 24 hr 03/11/25 03/11/25 03/11/25 12:08 17:04 19:54 POC Glucose 223 H 156 H 156 H 03/12/25 08:10 POC Glucose 132 H Current Inpatient Medications Current Inpatient Medications: Current Inpatient Medications Acetaminophen (Acetaminophen 325 Mg Tab) 650 mg PO Q4H PRN PRN Reason: Headache or Minor Fever Stop: 03/26/25 15:08 Buspirone HCl (Buspirone 15 Mg Tab) 15 mg PO QAM [facility] Stop: 03/28/25 08:59 Last Admin: 03/12/25 07:59 Dose: 15 mg Buspirone HCl (Buspirone 15 Mg Tab) 15 mg PO 2000 [facility] Stop: 03/27/25 19:59 Last Admin: 03/11/25 20:03 Dose: 15 mg Chlorpromazine HCl (Chlorpromazine Hcl 25 Mg Tab) 25 mg PO DAILY PRN PRN Reason: Agitation Stop: 04/03/25 13:08 Last Admin: 03/04/25 17:16 Dose: 25 mg Dextrose (Dextrose 50% 50 Ml Syringe) 25 - 50 ml IV UD PRN; Protocol PRN Reason: Hypoglycemia Protocol Stop: 03/26/25 16:29 Fluoxetine HCl (Fluoxetine Hcl 20 Mg Cap) 60 mg PO QAM [facility] Stop: 04/08/25 08:59 Last Admin: 03/12/25 07:59 Dose: 60 mg Glucagon (Glucagon For Inj 1 Mg Vial) 1 mg SQ UD PRN; Protocol PRN Reason: Hypoglycemia Protocol Stop: 03/26/25 16:29 Glucose (Glucose 40% Gel 15 Gm Tube) 15 - 30 gm PO UD PRN; Protocol PRN Reason: Hypoglycemia Protocol Stop: 03/26/25 16:29 Glucose (Glucose 10 Tab/Tube) 4 - 8 tab PO UD PRN; Protocol PRN Reason: Hypoglycemia Protocol Stop: 03/26/25 16:29 Hydroxyzine HCl (Hydroxyzine Hcl 25 Mg Tab) 50 mg PO HSZ PRN PRN Reason: Insomnia Stop: 03/26/25 15:08 Last Admin: 03/05/25 21:15 Dose: 50 mg Hydroxyzine HCl (Hydroxyzine Hcl 25 Mg Tab) 25 mg PO Q4H PRN PRN Reason: Anxiety Stop: 03/26/25 15:08 Last Admin: 03/08/25 10:07 Dose: 25 mg Insulin Aspart (Insulin Aspart Per Unit Charge) 0 units SC ACHS [facility] Stop: 03/26/25 17:14 Last Admin: 03/11/25 20:11 Dose: 2 units Insulin Glargine (Lantus Per Unit Charge) 6 units SQ HS [facility] Stop: 03/27/25 21:59 Last Admin: 03/11/25 20:11 Dose: 6 units Lorazepam (Lorazepam 1 Mg Tab) 1 mg PO TID PRN PRN Reason: panic attacks Stop: 04/03/25 13:04 Last Admin: 03/10/25 19:22 Dose: 1 mg Midodrine (Midodrine Hcl 2.5 Mg Tab) 5 mg PO [facility] Stop: 03/27/25 08:59 Last Admin: 03/12/25 08:00 Dose: 5 mg Midodrine (Midodrine Hcl 2.5 Mg Tab) 5 mg PO 1999 [facility] Stop: 03/26/25 19:59 Last Admin: 03/11/25 20:03 Dose: 5 mg Mirtazapine (Mirtazapine Tab 15 Mg Tab) 7.5 mg PO HS PRN PRN Reason: insomnia Stop: 04/05/25 21:59 Last Admin: 03/12/25 01:08 Dose: 7.5 mg Mirtazapine (Mirtazapine Tab 15 Mg Tab) 7.5 mg PO 1999 [facility] Stop: 04/05/25 19:59 Last Admin: 03/11/25 20:04 Dose: 7.5 mg Miscellaneous (Carbohydrates For Hypoglycemia ) 15 - 30 gm PO UD PRN PRN Reason: Hypoglycemia Treatment Stop: 03/26/25 16:29 Last Admin: 02/24/25 20:06 Dose: 15 gm Miscellaneous (Remove Nicoderm Patch) 1 each N/A DAILY@2100 [facility] Stop: 03/26/25 20:59 Last Admin: 03/11/25 20:05 Dose: 1 each Nicotine (Nicotine 14 Mg/24 Hr Patch) 1 patch TD QAM [facility] Stop: 03/26/25 16:59 Last Admin: 03/12/25 08:00 Dose: 1 patch Risperidone (Risperidone Odt 0.5 Mg Soltab) 1 mg PO TID PRN PRN Reason: Agitation Stop: 04/03/25 11:21 Last Admin: 03/11/25 14:33 Dose: 1 mg Risperidone (Risperidone 1 Mg Tablet) 1 mg PO QDL [facility] Stop: 04/10/25 15:59 Last Admin: 03/11/25 16:50 Dose: 1 mg Sodium Chloride (Sodium Chloride 0.65% Na Soln 45 Ml ([place])) 1 - 2 sprays NA PRN PRN PRN Reason: Nasal Dryness/Congestion Stop: 03/26/25 15:08 Mental Health & Subst Abuse Tx Psychiatrist Name of Psychiatrist: Sharita Abarca Psychiatrist's Date Of Appointment With Psychiatric Provider: 02/27/25 Psychiatric Appointment Comment: [address] [place] [id number] Therapist Name of Therapist: Sharita Abarca Therapist's Date of Therapist Appointment: 02/28/25 Therapy Appointment Comment: [address] [place] [id number] Post Discharge Appointments Primary Care Physician Name Of Family Doctor/PCP: Dr. Tipton/ [place] Contact Information Discharge Discharge Address: [address] [place] [address]
--- NOTE | 2025-03-13 09:12 | Psychiatric Progress Note ---
Date of Service March 13, 2025 Impression / Recommendations Impression GARFIELD AYALA is a 44-year-old woman who currently lives in [place] with her mother, step-father, and adult daughters, has a history of major depressive disorder, generalized anxiety disorder, and just discharged from inpatient stay at [facility] three days ago and was admitted on 02/24/25 14:37 on a 201 voluntary commitment for SI with plan to overdose on medications. Diagnostically consistent with major depressive disorder with anxious distress and possible panic disorder versus borderline personality disorder as well as possible OCD component. Unclear what her baseline cognitive functioning has been, low suspicion for any type of early neurocognitive decline especially given report of normal MRI done recently at an outside hospital. A: Ongoing depression and anxiety but lessening of SI and tolerating medications with fewer somatic concerns and ruminations. Ongoing psychoeducation and reassurance about timeline of recovery and symptoms and ways to engage in behavioral activation. Also using more coping skills which was praised and validated as early sign of improvement. Accepted to [facility], meeting on to determine final steps for admission. Overall, I spent a total of 36 minutes on this case including meeting with the patient, reviewing the chart, nursing report, multidisciplinary team meeting, orders, and documentation. (1) Suicidal ideation: (2) Recurrent severe major depressive disorder with anxiety: (3) Insomnia: Plan 03/13/2025: -Continue current medications and tx plan 03/12/2025: -Continue current medications and tx plan 03/11/2025: -Schedule risperidone 1mg qafternoon after lunch 03/10/2025: -Continue current medications and tx plan 03/09/2025: Will continue to develop specific realistic realistic expectations and explore coping skills Will prioritize managing insomnia due to its likely impact on her anxiety Continue Mirtazapine 7.5 mg PO QHS @ 1999 Continue PRN Mirtazapine 7.5 mg QHS for interrupted sleep Continue Prozac 60 mg PO QAM Continue Buspar 15 mg PO BID (QA and 1999) Continue PRN Risperidone PO TID for anxiety/agitation; PRN Ativan 1 mg PO TID for acute anxiety refractory to Risperdal; PRN Vistaril 25 mg PO Q4H for mild anxiety Continue PRN Thorazine 25 mg PO QD for management of acute DTO/DTS agitation/aggression Continue PRN Vistaril 50 mg PO QHS for interrupted sleep refractory to PRN Mirtazapine 03/08/2025: Will continue to develop specific realistic realistic expectations and explore coping skills Will prioritize managing insomnia due to its likely impact on her anxiety Continue Mirtazapine 7.5 mg PO QHS @ 1999 Continue PRN Mirtazapine 7.5 mg QHS for interrupted sleep Increase to Prozac 60 mg PO QAM Continue Buspar 15 mg PO BID ( and 1999) Continue PRN Risperidone PO TID for anxiety/agitation; PRN Ativan 1 mg PO TID for acute anxiety refractory to Risperdal; PRN Vistaril 25 mg PO Q4H for mild anxiety Continue PRN Thorazine 25 mg PO QD for management of acute DTO/DTS agitation/aggression Continue PRN Vistaril 50 mg PO QHS for interrupted sleep refractory to PRN Mirtazapine 03/07/2025: Will continue to develop specific realistic realistic expectations and explore coping skills Will prioritize managing insomnia due to its likely impact on her anxiety Continue Current Medications: Continue Mirtazapine 7.5 mg PO QHS @ 1999 Continue PRN Mirtazapine 7.5 mg QHS for interrupted sleep Prozac 40 mg PO QAM Buspar 15 mg PO BID ( and 1999) PRN Risperidone PO TID for anxiety/agitation; PRN Ativan 1 mg PO TID for acute anxiety refractory to Risperdal; PRN Vistaril 25 mg PO Q4H for mild anxiety PRN Thorazine 25 mg PO QD for management of acute DTO/DTS a gitation/aggression PRN Vistaril 50 mg PO QHS for interrupted sleep refractory to PRN Mirtazapine 03/06/2025: Directed the patient to write down her treatment objectives to establish ilya listic expectations. Will prioritize managing insomnia due to its likely impact on her anxiety Continue Current Medications: Decrease to Mirtazapine 7.5 mg PO QHS @ 1999 (more sedating at lower doses) Start PRN Mirtazapine 7.5 mg QHS for interrupted sleep Prozac 40 mg PO QAM Buspar 15 mg PO BID ( and 1999) PRN Risperidone PO TID for anxiety/agitation; PRN Ativan 1 mg PO TID for acute anxiety refractory to Risperdal; PRN Vistaril 25 mg PO Q4H for mild anxiety PRN Thorazine 25 mg PO QD for management of acute DTO/DTS agitation/aggression PRN Vistaril 50 mg PO QHS for interrupted sleep refractory to PRN Mirtazapine 03/05/2025: Directed the patient to write down her treatment objectives to establish realistic expectations. Patient is currently open to long-term inpatient care as well as ECT. Continue Current Medications: Mirtazapine 15 mg PO QHS @ 1999 Prozac 40 mg PO QAM Buspar 15 mg PO BID (QA and 1999) PRN Risperidone PO TID for anxiety/agitation; PRN Ativan 1 mg PO TID for acute anxiety refractory to Risperdal; PRN Vistaril 25 mg PO Q4H for mild anxiety PRN Thorazine 25 mg PO QD for management of acute DTO/DTS agitation/aggression PRN Vistaril 50 mg PO QHS for insomnia [patient advised to use for nighttime awakenings] 03/04/2025: -Start risperidone 1mg ODT TID prn for agitation -Valium 2mg one time dose due to distress -Discontinue Wellbutrin 03/03/2025 -Ongoing behavioral activation efforts -Encouraging use of exercise bike given previous foot surgery 03/02/2025: -Increase Wellbutrin XL to 300mg tomorrow 03/01/2025: -Discontinue Klonopin -Discontinue olanzapine -Start Wellbutrin XL 150mg tomorrow AM 02/28/2025: -Taper Klonopin to 0.5mg daily -Increase fluoxetine to 40mg daily -Increase olanzapine to 5mg HS 02/27/2025: -Start olanzapine 2.5mg HS -fasting lipid panel, HbA1c, Vit D, Vit B12, ESR, CRP tomorrow AM 02/26/2025: -Increase Klonopin to 1mg daily 02/25/2025: The patient was admitted to the [facility] ([facility]) on q15 min checks (behavioral with suicide precautions) for safety. The patient will participate in group, recreational, and milieu therapies and will be offered additional individual and family sessions as clinically appropriate. -Discontinue trazodone -Start fluoxetine 20mg daily -Increase Buspar to 15mg BID -Start Klonopin 0.5mg daily -Continue mirtazapine 15mg HS -Glycemic pharmacy consult for recommendations regarding need for and dosing for insulin -SW to explore barriers to functioning at home in recent months via family collateral and exploring options for increased support Inventory Assets Strengths: supportive relationships, willing to get treatment Needs: safety and stabilization, medication adjustment, additional coping skills, increased outpatient services Suicide Risk Level Suicide Risk Level: Moderate (q15 min suicide checks) (depression and anxiety with SI but SI lessening a bit and feels able to ask for support) Suicide Risk Level Comments: Risk Factors Assessment Male: No : Yes Do You Have Access To A Gun?: No Health Problems: Yes Mental Health Diagnoses: Yes Substance Use Disorders: No Previous Attempt: Yes Family History of Suicide: No Previous Psychiatric Hospitalization: Yes Hopelessness: Yes Protective Factors Assessment Employed: No Stable Relationships: Yes Supportive Family: Yes Interval History Identifying Information GARFIELD AYALA is a 44-year-old woman who currently lives in [place] with her mother, step-father, and adult daughters, has a history of major depressive disorder, generalized anxiety disorder, and just discharged from inpatient stay at [facility] three days ago and was admitted on 02/24/25 14:37 on a 201 voluntary commitment for SI with plan to overdose on medications. Chief Complaint "I'm pacing a lot". Review of Systems Sleep Information Total Hours of Sleep: 5 Meal Information Percent Meal Consumed - Breakfast: 100 Percent Meal Consumed - Lunch: 100 Percent Meal Consumed - Dinner: 100 Subjective Subjective Patient was seen & assessed and interval progress reviewed with treatment team. Attending groups. Did not sleep well last night, even after up to get prn mirtazapine. Ongoing anxiety and pacing. No worsening of restlessness since risperidone started so akathisia very unlikely, appears to be a symptom of her anxiety. SI is "they're there but not as bad". She thinks some of the noises of doors closing kept her awake more overnight. No new medication side effects or issues. Remains on board with plan for [facility]. Physical Exam Psychiatric Orientation: alert and oriented x 3 Apperance: appropriately dressed and appropriately groomed Eye Contact: good eye contact Motor Behavior: + psychomotor agitation (pacing at times) Speech: normal rate/rhythm/volume of speech Affect: + depressed affect Mood: + depressed mood and + anxious mood Thought Process: + perseveration Thought Content: + preoccupation and + cognitive distortions Suicidal Thoughts: denies suicidal plan and denies suicidal intent; + reports suicidal thoughts (but lessening significantly) Homicidal Thoughts: denies homicidal thoughts, denies homicidal plan and denies homicidal intent Hallucinations: no auditory hallucinations and no visual hallucinations Cognition: recent memory grossly intact, remote memory grossly intact, attention grossly intact and language grossly intact Estimated Intelligence: + below average estimated intelligence Insight: + limited insight Judgment: + limited judgement Vital Signs (Past 24 Hours) Last Vital Signs Temp 36.6 C 03/13/25 06:34 Pulse 77 03/13/25 06:35 Resp 16 03/13/25 06:34 BP 101/70 03/13/25 06:35 Pulse Ox 98 03/11/25 06:37 O2 Del Method Room Air 03/11/25 06:37 Results & Data ([facility]) Laboratory Results Laboratory Results - last 24 hr 03/12/25 03/12/25 03/12/25 11:48 17:15 19:58 POC Glucose 254 H 136 H 236 H 03/13/25 08:09 POC Glucose 127 H Current Inpatient Medications Current Inpatient Medications: Current Inpatient Medications Acetaminophen (Acetaminophen 325 Mg Tab) 650 mg PO Q4H PRN PRN Reason: Headache or Minor Fever Stop: 03/26/25 15:08 Buspirone HCl (Buspirone 15 Mg Tab) 15 mg PO QAM [facility] Stop: 03/28/25 08:59 Last Admin: 03/13/25 08:10 Dose: 15 mg Buspirone HCl (Buspirone 15 Mg Tab) 15 mg PO 2000 [facility] Stop: 03/27/25 19:59 Last Admin: 03/12/25 20:00 Dose: 15 mg Chlorpromazine HCl (Chlorpromazine Hcl 25 Mg Tab) 25 mg PO DAILY PRN PRN Reason: Agitation Stop: 04/03/25 13:08 Last Admin: 03/04/25 17:16 Dose: 25 mg Dextrose (Dextrose 50% 50 Ml Syringe) 25 - 50 ml IV UD PRN; Protocol PRN Reason: Hypoglycemia Protocol Stop: 03/26/25 16:29 Fluoxetine HCl (Fluoxetine Hcl 20 Mg Cap) 60 mg PO QAM [facility] Stop: 04/08/25 08:59 Last Admin: 03/13/25 08:11 Dose: 60 mg Glucagon (Glucagon For Inj 1 Mg Vial) 1 mg SQ UD PRN; Protocol PRN Reason: Hypoglycemia Protocol Stop: 03/26/25 16:29 Glucose (Glucose 40% Gel 15 Gm Tube) 15 - 30 gm PO UD PRN; Protocol PRN Reason: Hypoglycemia Protocol Stop: 03/26/25 16:29 Glucose (Glucose 10 Tab/Tube) 4 - 8 tab PO UD PRN; Protocol PRN Reason: Hypoglycemia Protocol Stop: 03/26/25 16:29 Hydroxyzine HCl (Hydroxyzine Hcl 25 Mg Tab) 50 mg PO HSZ PRN PRN Reason: Insomnia Stop: 03/26/25 15:08 Last Admin: 03/05/25 21:15 Dose: 50 mg Hydroxyzine HCl (Hydroxyzine Hcl 25 Mg Tab) 25 mg PO Q4H PRN PRN Reason: Anxiety Stop: 03/26/25 15:08 Last Admin: 03/08/25 10:07 Dose: 25 mg Insulin Aspart (Insulin Aspart Per Unit Charge) 0 units SC ACHS [facility] Stop: 03/26/25 17:14 Last Admin: 03/13/25 08:52 Dose: 6 units Insulin Glargine (Lantus Per Unit Charge) 6 units SQ HS [facility] Stop: 03/27/25 21:59 Last Admin: 03/12/25 20:09 Dose: 6 units Lorazepam (Lorazepam 1 Mg Tab) 1 mg PO TID PRN PRN Reason: panic attacks Stop: 04/03/25 13:04 Last Admin: 03/10/25 19:22 Dose: 1 mg Midodrine (Midodrine Hcl 2.5 Mg Tab) 5 mg PO QAM [facility] Stop: 03/27/25 08:59 Last Admin: 03/13/25 08:10 Dose: 5 mg Midodrine (Midodrine Hcl 2.5 Mg Tab) 5 mg PO 1999 [facility] Stop: 03/26/25 19:59 Last Admin: 03/12/25 20:00 Dose: 5 mg Mirtazapine (Mirtazapine Tab 15 Mg Tab) 7.5 mg PO HS PRN PRN Reason: insomnia Stop: 04/05/25 21:59 Last Admin: 03/13/25 01:08 Dose: 7.5 mg Mirtazapine (Mirtazapine Tab 15 Mg Tab) 7.5 mg PO 1999 [facility] Stop: 04/05/25 19:59 Last Admin: 03/12/25 20:00 Dose: 7.5 mg Miscellaneous (Carbohydrates For Hypoglycemia ) 15 - 30 gm PO UD PRN PRN Reason: Hypoglycemia Treatment Stop: 03/26/25 16:29 Last Admin: 02/24/25 20:06 Dose: 15 gm Miscellaneous (Remove Nicoderm Patch) 1 each N/A DAILY@2100 [facility] Stop: 03/26/25 20:59 Last Admin: 03/12/25 20:12 Dose: 1 each Nicotine (Nicotine 14 Mg/24 Hr Patch) 1 patch TD QAM [facility] Stop: 03/26/25 16:59 Last Admin: 03/13/25 08:13 Dose: 1 patch Risperidone (Risperidone Odt 0.5 Mg Soltab) 1 mg PO TID PRN PRN Reason: Agitation Stop: 04/03/25 11:21 Last Admin: 03/11/25 14:33 Dose: 1 mg Risperidone (Risperidone 1 Mg Tablet) 1 mg PO DAILYBL [facility] Stop: 04/11/25 11:59 Last Admin: 03/12/25 12:50 Dose: 1 mg Sodium Chloride (Sodium Chloride 0.65% Na Soln 45 Ml ([place])) 1 - 2 sprays NA PRN PRN PRN Reason: Nasal Dryness/Congestion Stop: 03/26/25 15:08 Mental Health & Subst Abuse Tx Psychiatrist Name of Psychiatrist: Sharita Abarca Psychiatrist's Date Of Appointment With Psychiatric Provider: 02/27/25 Psychiatric Appointment Comment: [address] [place] [id number] Therapist Name of Therapist: Sharita Abarca Therapist's Date of Therapist Appointment: 02/28/25 Therapy Appointment Comment: [address] [place] [id number] Post Discharge Appointments Primary Care Physician Name Of Family Doctor/PCP: Dr. Tipton/ [place] Contact Information Discharge Discharge Address: [address] [place] [id number]
--- NOTE | 2025-03-14 09:23 | Psychiatric Progress Note ---
Date of Service March 14, 2025 Impression / Recommendations Impression GARFIELD AYALA is a 44-year-old woman who currently lives in [place] with her mother, step-father, and adult daughters, has a history of major depressive disorder, generalized anxiety disorder, and just discharged from inpatient stay at [facility] three days ago and was admitted on 02/24/25 14:37 on a 201 voluntary commitment for SI with plan to overdose on medications. Diagnostically consistent with major depressive disorder with anxious distress and possible panic disorder versus borderline personality disorder as well as possible OCD component. Unclear what her baseline cognitive functioning has been, low suspicion for any type of early neurocognitive decline especially given report of normal MRI done recently at an outside hospital. A: Ongoing depression and anxiety with slightly more SI this morning. Slept better but still worries she won't ever get better. Seeing small signs of improvement. Accepted to [facility], meeting on to determine final steps for admission. Overall, I spent a total of 35 minutes on this case including meeting with the patient, reviewing the chart, nursing report, multidisciplinary team meeting, orders, and documentation. (1) Suicidal ideation: (2) Recurrent severe major depressive disorder with anxiety: (3) Insomnia: Plan 03/14/2025: -Continue current medications and tx plan 03/13/2025: -Continue current medications and tx plan 03/12/2025: -Continue current medications and tx plan 03/11/2025: -Schedule risperidone 1mg qafternoon after lunch 03/10/2025: -Continue current medications and tx plan 03/09/2025: Will continue to develop specific realistic realistic expectations and explore coping skills Will prioritize managing insomnia due to its likely impact on her anxiety Continue Mirtazapine 7.5 mg PO QHS @ 1999 Continue PRN Mirtazapine 7.5 mg QHS for interrupted sleep Continue Prozac 60 mg PO QAM Continue Buspar 15 mg PO BID (QA and 1999) Continue PRN Risperidone PO TID for anxiety/agitation; PRN Ativan 1 mg PO TID for acute anxiety refractory to Risperdal; PRN Vistaril 25 mg PO Q4H for mild anxiety Continue PRN Thorazine 25 mg PO QD for management of acute DTO/DTS agitation/aggression Continue PRN Vistaril 50 mg PO QHS for interrupted sleep refractory to PRN Mirtazapine 03/08/2025: Will continue to develop specific realistic realistic expectations and explore coping skills Will prioritize managing insomnia due to its likely impact on her anxiety Continue Mirtazapine 7.5 mg PO QHS @ 1999 Continue PRN Mirtazapine 7.5 mg QHS for interrupted sleep Increase to Prozac 60 mg PO QAM Continue Buspar 15 mg PO BID ( and 1999) Continue PRN Risperidone PO TID for anxiety/agitation; PRN Ativan 1 mg PO TID for acute anxiety refractory to Risperdal; PRN Vistaril 25 mg PO Q4H for mild anxiety Continue PRN Thorazine 25 mg PO QD for management of acute DTO/DTS agitation/aggression Continue PRN Vistaril 50 mg PO QHS for interrupted sleep refractory to PRN Mirtazapine 03/07/2025: Will continue to develop specific realistic realistic expectations and explore coping skills Will prioritize managing insomnia due to its likely impact on her anxiety Continue Current Medications: Continue Mirtazapine 7.5 mg PO QHS @ 1999 Continue PRN Mirtazapine 7.5 mg QHS for interrupted sleep Prozac 40 mg PO QAM Buspar 15 mg PO BID ( and 1999) PRN Risperidone PO TID for anxiety/agitation; PRN Ativan 1 mg PO TID for acute anxiety refractory to Risperdal; PRN Vistaril 25 mg PO Q4H for mild anxiety PRN Thorazine 25 mg PO QD for management of acute DTO/DTS agitation/aggression PRN Vistaril 50 mg PO QHS for interrupted sleep refractory to PRN Mirtazapine 03/06/2025: Directed the patient to write down her treatment objectives to establish realistic expectations. Will prioritize managing insomnia due to its likely impact on her anxiety Continue Current Medications: Decrease to Mirtazapine 7.5 mg PO QHS @ 1999 (more sedating at lower doses) Start PRN Mirtazapine 7.5 mg QHS for interrupted sleep Prozac 40 mg PO QAM Buspar 15 mg PO BID ( and 1999) PRN Risperidone PO TID for anxiety/agitation; PRN Ativan 1 mg PO TID for acute anxiety refractory to Risperdal; PRN Vistaril 25 mg PO Q4H for mild anxiety PRN Thorazine 25 mg PO QD for management of acute DTO/DTS agitation/aggression PRN Vistaril 50 mg PO QHS for interrupted sleep refractory to PRN Mirtazapine 03/05/2025: Directed the patient to write down her treatment objectives to establish realistic expectations. Patient is currently open to long-term inpatient care as well as ECT. Continue Current Medications: Mirtazapine 15 mg PO QHS @ 2000 Prozac 40 mg PO QAM Buspar 15 mg PO BID (QA and 1999) PRN Risperidone PO TID for anxiety/agitation; PRN Ativan 1 mg PO TID for acute anxiety refractory to Risperdal; PRN Vistaril 25 mg PO Q4H for mild anxiety PRN Thorazine 25 mg PO QD for management of acute DTO/DTS agitation/aggression PRN Vistaril 50 mg PO QHS for insomnia [patient advised to use for nighttime awakenings] 03/04/2025: -Start risperidone 1mg ODT TID prn for agitation -Valium 2mg one time dose due to distress -Discontinue Wellbutrin 03/03/2025 -Ongoing behavioral activation efforts -Encouraging use of exercise bike given previous foot surgery 03/02/2025: -Increase Wellbutrin XL to 300mg tomorrow 03/01/2025: -Discontinue Klonopin -Discontinue olanzapine -Start Wellbutrin XL 150mg tomorrow AM 02/28/2025: -Taper Klonopin to 0.5mg daily -Increase fluoxetine to 40mg daily -Increase olanzapine to 5mg HS 02/27/2025: -Start olanzapine 2.5mg HS -fasting lipid panel, HbA1c, Vit D, Vit B12, ESR, CRP tomorrow AM 02/26/2025: -Increase Klonopin to 1mg daily 02/25/2025: The patient was admitted to the [facility] ([facility]) on q15 min checks (behavioral with suicide precautions) for safety. The patient will participate in group, recreational, and milieu therapies and will be offered additional individual and family sessions as clinically appropriate. -Discontinue trazodone -Start fluoxetine 20mg daily -Increase Buspar to 15mg BID -Start Klonopin 0.5mg daily -Continue mirtazapine 15mg HS -Glycemic pharmacy consult for recommendations regarding need for and dosing for insulin -SW to explore barriers to functioning at home in recent months via family collateral and exploring options for increased support Inventory Assets Strengths: supportive relationships, willing to get treatment Needs: safety and stabilization, medication adjustment, additional coping skills, increased outpatient services Suicide Risk Level Suicide Risk Level: Moderate (q15 min suicide checks) (depression and anxiety with SI but SI lessening a bit and feels able to ask for support) Suicide Risk Level Comments: Risk Factors Assessment Male: No : Yes Do You Have Access To A Gun?: No Health Problems: Yes Mental Health Diagnoses: Yes Substance Use Disorders: No Previous Attempt: Yes Family History of Suicide: No Previous Psychiatric Hospitalization: Yes Hopelessness: Yes Protective Factors Assessment Employed: No Stable Relationships: Yes Supportive Family: Yes Interval History Identifying Information GARFIELD AYALA is a 44-year-old woman who currently lives in [place] with her mother, step-father, and adult daughters, has a history of major depressive disorder, generalized anxiety disorder, and just discharged from inpatient stay at [facility] three days ago and was admitted on 02/24/25 14:37 on a 201 voluntary commitment for SI with plan to overdose on medications. Chief Complaint "I'm still pacing a lot". Review of Systems Sleep Information Total Hours of Sleep: 7 Meal Information Percent Meal Consumed - Breakfast: 100 Percent Meal Consumed - Lunch: 100 Percent Meal Consumed - Dinner: 100 Subjective Subjective Patient was seen & assessed and interval progress reviewed with treatment team. Pacing this morning, possibly tearful this morning. This afternoon reports that the morning was difficult with more thoughts of suicide which she attributes to not sleeping well. But this afternoon participating in group and briefly brightened in her affect while making a slight joke to me. Reflected on this with her and she can acknowledge that we are observing some slight early signs of improvement, she hopes she will soon start to feel these changes. Physical Exam Psychiatric Orientation: alert and oriented x 3 Apperance: appropriately dressed and appropriately groomed Eye Contact: good eye contact Motor Behavior: + psychomotor agitation (pacing at times) Speech: normal rate/rhythm/volume of speech Affect: + depressed affect (but brief smile today while meeting with me) Mood: + depressed mood and + anxious mood Thought Process: + circumstantial thought process Thought Content: + preoccupation and + cognitive distortions Suicidal Thoughts: denies suicidal plan and denies suicidal intent; + reports suicidal thoughts (intermittent) Homicidal Thoughts: denies homicidal thoughts, denies homicidal plan and denies homicidal intent Hallucinations: no auditory hallucinations and no visual hallucinations Cognition: recent memory grossly intact, remote memory grossly intact, attention grossly intact and language grossly intact Estimated Intelligence: + below average estimated intelligence Insight: + limited insight Judgment: + limited judgement Vital Signs (Past 24 Hours) Last Vital Signs Temp 36.8 C 03/14/25 06:25 Pulse 72 03/14/25 06:26 Resp 16 03/14/25 06:25 BP 116/78 03/14/25 06:26 Pulse Ox 98 03/11/25 06:37 O2 Del Method Room Air 03/11/25 06:37 Results & Data ([facility]) Laboratory Results Laboratory Results - last 24 hr 03/13/25 03/13/25 03/13/25 11:35 17:11 20:12 POC Glucose 272 H 83 191 H 03/14/25 08:19 POC Glucose 127 H Current Inpatient Medications Current Inpatient Medications: Current Inpatient Medications Acetaminophen (Acetaminophen 325 Mg Tab) 650 mg PO Q4H PRN PRN Reason: Headache or Minor Fever Stop: 03/26/25 15:08 Buspirone HCl (Buspirone 15 Mg Tab) 15 mg PO QA [facility] Stop: 03/28/25 08:59 Last Admin: 03/14/25 08:28 Dose: 15 mg Buspirone HCl (Buspirone 15 Mg Tab) 15 mg PO 2000 [facility] Stop: 03/27/25 19:59 Last Admin: 03/13/25 20:24 Dose: 15 mg Chlorpromazine HCl (Chlorpromazine Hcl 25 Mg Tab) 25 mg PO DAILY PRN PRN Reason: Agitation Stop: 04/03/25 13:08 Last Admin: 03/04/25 17:16 Dose: 25 mg Dextrose (Dextrose 50% 50 Ml Syringe) 25 - 50 ml IV UD PRN; Protocol PRN Reason: Hypoglycemia Protocol Stop: 03/26/25 16:29 Fluoxetine HCl (Fluoxetine Hcl 20 Mg Cap) 60 mg PO QAM [facility] Stop: 04/08/25 08:59 Last Admin: 03/14/25 08:28 Dose: 60 mg Glucagon (Glucagon For Inj 1 Mg Vial) 1 mg SQ UD PRN; Protocol PRN Reason: Hypoglycemia Protocol Stop: 03/26/25 16:29 Glucose (Glucose 40% Gel 15 Gm Tube) 15 - 30 gm PO UD PRN; Protocol PRN Reason: Hypoglycemia Protocol Stop: 03/26/25 16:29 Glucose (Glucose 10 Tab/Tube) 4 - 8 tab PO UD PRN; Protocol PRN Reason: Hypoglycemia Protocol Stop: 03/26/25 16:29 Hydroxyzine HCl (Hydroxyzine Hcl 25 Mg Tab) 50 mg PO HSZ PRN PRN Reason: Insomnia Stop: 03/26/25 15:08 Last Admin: 03/05/25 21:15 Dose: 50 mg Hydroxyzine HCl (Hydroxyzine Hcl 25 Mg Tab) 25 mg PO Q4H PRN PRN Reason: Anxiety Stop: 03/26/25 15:08 Last Admin: 03/08/25 10:07 Dose: 25 mg Insulin Aspart (Insulin Aspart Per Unit Charge) 0 units SC ACHS [facility] Stop: 03/26/25 17:14 Last Admin: 03/14/25 09:10 Dose: 4 units Insulin Glargine (Lantus Per Unit Charge) 6 units SQ HS [facility] Stop: 03/27/25 21:59 Last Admin: 03/13/25 20:26 Dose: 6 units Lorazepam (Lorazepam 1 Mg Tab) 1 mg PO TID PRN PRN Reason: panic attacks Stop: 04/03/25 13:04 Last Admin: 03/10/25 19:22 Dose: 1 mg Midodrine (Midodrine Hcl 2.5 Mg Tab) 5 mg PO QA [facility] Stop: 03/27/25 08:59 Last Admin: 03/14/25 08:29 Dose: 5 mg Midodrine (Midodrine Hcl 2.5 Mg Tab) 5 mg PO 1999 [facility] Stop: 03/26/25 19:59 Last Admin: 03/13/25 20:24 Dose: 5 mg Mirtazapine (Mirtazapine Tab 15 Mg Tab) 7.5 mg PO HS PRN PRN Reason: insomnia Stop: 04/05/25 21:59 Last Admin: 03/14/25 03:41 Dose: 7.5 mg Mirtazapine (Mirtazapine Tab 15 Mg Tab) 7.5 mg PO 1999 [facility] Stop: 04/05/25 19:59 Last Admin: 03/13/25 20:24 Dose: 7.5 mg Miscellaneous (Carbohydrates For Hypoglycemia ) 15 - 30 gm PO UD PRN PRN Reason: Hypoglycemia Treatment Stop: 03/26/25 16:29 Last Admin: 02/24/25 20:06 Dose: 15 gm Miscellaneous (Remove Nicoderm Patch) 1 each N/A DAILY@2100 [facility] Stop: 03/26/25 20:59 Last Admin: 03/13/25 20:25 Dose: 1 each Nicotine (Nicotine 14 Mg/24 Hr Patch) 1 patch TD QAM [facility] Stop: 03/26/25 16:59 Last Admin: 03/14/25 08:29 Dose: 1 patch Risperidone (Risperidone Odt 0.5 Mg Soltab) 1 mg PO TID PRN PRN Reason: Agitation Stop: 04/03/25 11:21 Last Admin: 03/11/25 14:33 Dose: 1 mg Risperidone (Risperidone 1 Mg Tablet) 1 mg PO DAILYBL [facility] Stop: 04/11/25 11:59 Last Admin: 03/13/25 11:41 Dose: 1 mg Sodium Chloride (Sodium Chloride 0.65% Na Soln 45 Ml ([place])) 1 - 2 sprays NA PRN PRN PRN Reason: Nasal Dryness/Congestion Stop: 03/26/25 15:08 Mental Health & Subst Abuse Tx Psychiatrist Name of Psychiatrist: Sharita Abarca Psychiatrist's Date Of Appointment With Psychiatric Provider: 02/27/25 Psychiatric Appointment Comment: [address] [place] [id number] Therapist Name of Therapist: Sharita Abarca Therapist's Date of Therapist Appointment: 02/28/25 Therapy Appointment Comment: [address] [place] [id number] Post Discharge Appointments Primary Care Physician Name Of Family Doctor/PCP: Dr. Tipton/ [place] Contact Information Discharge Discharge Address: [address] [place] [address]
--- NOTE | 2025-03-15 09:03 | Psychiatric Progress Note ---
Date of Service March 15, 2025 Impression / Recommendations Impression GARFIELD AYALA is a 44-year-old woman who currently lives in [place] with her mother, step-father, and adult daughters, has a history of major depressive disorder, generalized anxiety disorder, and just discharged from inpatient stay at [facility] three days ago and was admitted on 02/24/25 14:37 on a 201 voluntary commitment for SI with plan to overdose on medications. Diagnostically consistent with major depressive disorder with anxious distress and possible panic disorder versus borderline personality disorder as well as possible OCD component. Unclear what her baseline cognitive functioning has been, low suspicion for any type of early neurocognitive decline especially given report of normal MRI done recently at an outside hospital. A: Ongoing depression and anxiety but SI lessening and likes her current medications. Discussed risks/benefits/alternatives of medication prior to car ride tomorrow she consents to use of single time dose of ativan 2mg, reviewed side effects including but not limited to sedation, dizziness, respiratory suppression, gait changes. Plan for discharge to [facility] tomorrow morning via secure transport. Overall, I spent a total of 35 minutes on this case including meeting with the patient, reviewing the chart, nursing report, multidisciplinary team meeting, orders, and documentation. (1) Suicidal ideation: (2) Recurrent severe major depressive disorder with anxiety: (3) Insomnia: Plan 03/15/2025: -COVID test ordered for [facility] admission requirement -Ativan 2mg po daily tomorrow 30 minutes prior to discharge 03/14/2025: -Continue current medications and tx plan 03/13/2025: -Continue current medications and tx plan 03/12/2025: -Continue current medications and tx plan 03/11/2025: -Schedule risperidone 1mg qafternoon after lunch 03/10/2025: -Continue current medications and tx plan 03/09/2025: Will continue to develop specific realistic realistic expectations and explore coping skills Will prioritize managing insomnia due to its likely impact on her anxiety Continue Mirtazapine 7.5 mg PO QHS @ 1999 Continue PRN Mirtazapine 7.5 mg QHS for interrupted sleep Continue Prozac 60 mg PO QAM Continue Buspar 15 mg PO BID (QA and 1999) Continue PRN Risperidone PO TID for anxiety/agitation; PRN Ativan 1 mg PO TID for acute anxiety refractory to Risperdal; PRN Vistaril 25 mg PO Q4H for mild anxiety Continue PRN Thorazine 25 mg PO QD for management of acute DTO/DTS agitation/aggression Continue PRN Vistaril 50 mg PO QHS for interrupted sleep refractory to PRN Mirtazapine 03/08/2025: Will continue to develop specific realistic realistic expectations and explore coping skills Will prioritize managing insomnia due to its likely impact on her anxiety Continue Mirtazapine 7.5 mg PO QHS @ 1999 Continue PRN Mirtazapine 7.5 mg QHS for interrupted sleep Increase to Prozac 60 mg PO QAM Continue Buspar 15 mg PO BID ( and 1999) Continue PRN Risperidone PO TID for anxiety/agitation; PRN Ativan 1 mg PO TID for acute anxiety refractory to Risperdal; PRN Vistaril 25 mg PO Q4H for mild anxiety Continue PRN Thorazine 25 mg PO QD for management of acute DTO/DTS agitation/aggression Continue PRN Vistaril 50 mg PO QHS for interrupted sleep refractory to PRN Mirtazapine 03/07/2025: Will continue to develop specific realistic realistic expectations and explore coping skills Will prioritize managing insomnia due to its likely impact on her anxiety Continue Current Medications: Continue Mirtazapine 7.5 mg PO QHS @ 1999 Continue PRN Mirtazapine 7.5 mg QHS for interrupted sleep Prozac 40 mg PO QAM Buspar 15 mg PO BID ( and 1999) PRN Risperidone PO TID for anxiety/agitation; PRN Ativan 1 mg PO TID for acute anxiety refractory to Risperdal; PRN Vistaril 25 mg PO Q4H for mild anxiety PRN Thorazine 25 mg PO QD for management of acute DTO/DTS agitation/aggression PRN Vistaril 50 mg PO QHS for interrupted sleep refractory to PRN Mirtazapine 03/06/2025: Directed the patient to write down her treatment objectives to establish realistic expectations. Will prioritize managing insomnia due to its likely impact on her anxiety Continue Current Medications: Decrease to Mirtazapine 7.5 mg PO QHS @ 1999 (more sedating at lower doses) Start PRN Mirtazapine 7.5 mg QHS for interrupted sleep Prozac 40 mg PO QAM Buspar 15 mg PO BID ( and 1999) PRN Risperidone PO TID for anxiety/agitation; PRN Ativan 1 mg PO TID for acute anxiety refractory to Risperdal; PRN Vistaril 25 mg PO Q4H for mild anxiety PRN Thorazine 25 mg PO QD for management of acute DTO/DTS agitation/aggression PRN Vistaril 50 mg PO QHS for interrupted sleep refractory to PRN Mirtazapine 03/05/2025: Directed the patient to write down her treatment objectives to establish realistic expectations. Patient is currently open to long-term inpatient care as well as ECT. Continue Current Medications: Mirtazapine 15 mg PO QHS @ 1999 Prozac 40 mg PO QAM Buspar 15 mg PO BID ( and 1999) PRN Risperidone PO TID for anxiety/agitation; PRN Ativan 1 mg PO TID for acute anxiety refractory to Risperdal; PRN Vistaril 25 mg PO Q4H for mild anxiety PRN Thorazine 25 mg PO QD for management of acute DTO/DTS agitation/aggression PRN Vistaril 50 mg PO QHS for insomnia [patient advised to use for nighttime awakenings] 03/04/2025: -Start risperidone 1mg ODT TID prn for agitation -Valium 2mg one time dose due to distress -Discontinue Wellbutrin 03/03/2025 -Ongoing behavioral activation efforts -Encouraging use of exercise bike given previous foot surgery 03/02/2025: -Increase Wellbutrin XL to 300mg tomorrow 03/01/2025: -Discontinue Klonopin -Discontinue olanzapine -Start Wellbutrin XL 150mg tomorrow AM 02/28/2025: -Taper Klonopin to 0.5mg daily -Increase fluoxetine to 40mg daily -Increase olanzapine to 5mg HS 02/27/2025: -Start olanzapine 2.5mg HS -fasting lipid panel, HbA1c, Vit D, Vit B12, ESR, CRP tomorrow AM 02/26/2025: -Increase Klonopin to 1mg daily 02/25/2025: The patient was admitted to the [facility] ([facility]) on q15 min checks (behavioral with suicide precautions) for safety. The patient will participate in group, recreational, and milieu therapies and will be offered additional individual and family sessions as clinically appropriate. -Discontinue trazodone -Start fluoxetine 20mg daily -Increase Buspar to 15mg BID -Start Klonopin 0.5mg daily -Continue mirtazapine 15mg HS -Glycemic pharmacy consult for recommendations regarding need for and dosing for insulin -SW to explore barriers to functioning at home in recent months via family collateral and exploring options for increased support Inventory Assets Strengths: supportive relationships, willing to get treatment Needs: safety and stabilization, medication adjustment, additional coping skills, increased outpatient services Suicide Risk Level Suicide Risk Level: Moderate (q15 min suicide checks) (depression and anxiety with SI prior to admission but SI lessening and feels able to ask for support) Suicide Risk Level Comments: Risk Factors Assessment Male: No : Yes Do You Have Access To A Gun?: No Health Problems: Yes Mental Health Diagnoses: Yes Substance Use Disorders: No Previous Attempt: Yes Family History of Suicide: No Previous Psychiatric Hospitalization: Yes Hopelessness: Yes Protective Factors Assessment Employed: No Stable Relationships: Yes Supportive Family: Yes Interval History Identifying Information GARFIELD AYALA is a 44-year-old woman who currently lives in [place] with her mother, step-father, and adult daughters, has a history of major depressive disorder, generalized anxiety disorder, and just discharged from inpatient stay at [facility] three days ago and was admitted on 02/24/25 14:37 on a 201 voluntary commitment for SI with plan to overdose on medications. Chief Complaint "Nervous". Review of Systems Sleep Information Total Hours of Sleep: 8.25 Meal Information Percent Meal Consumed - Breakfast: 100 Percent Meal Consumed - Lunch: 100 Percent Meal Consumed - Dinner: 100 Subjective Subjective Patient was seen & assessed and interval progress reviewed with nursing and social work. Attending groups. Continues to rate her mood as "1" and low with anxiety. Was accepted to [facility] with plan for admission tomorrow. Feels nervous about this due to the transport and worrying she'll have a panic attack while in the car. She has some SI but feels she can distract from this noting "still there but trying to ignore". She'd like to have ativan available before the car ride to prevent panic attacks during transport, discussed option for ativan which she'd like. Physical Exam Psychiatric Orientation: alert and oriented x 3 Apperance: appropriately dressed and appropriately groomed Eye Contact: good eye contact Motor Behavior: no abnormal motor movements Speech: normal rate/rhythm/volume of speech Affect: + constricted affect Mood: + depressed mood and + anxious mood Thought Process: + circumstantial thought process Thought Content: + preoccupation and + cognitive distortions Suicidal Thoughts: denies suicidal plan and denies suicidal intent; + reports canales icidal thoughts (intermittent, lessening) Homicidal Thoughts: denies homicidal thoughts, denies homicidal plan and denies homicidal intent Hallucinations: no auditory hallucinations and no visual hallucinations Cognition: recent memory grossly intact, remote memory grossly intact, attention grossly intact and language grossly intact Estimated Intelligence: + below average estimated intelligence Insight: + limited insight Judgment: + fair judgement Vital Signs (Past 24 Hours) Last Vital Signs Temp 36.8 C 03/15/25 06:41 Pulse 97 H 03/15/25 06:41 Resp 18 03/15/25 06:41 BP 124/78 03/15/25 06:42 Pulse Ox 99 03/15/25 06:41 O2 Del Method Room Air 03/15/25 06:41 Results & Data ([facility]) Laboratory Results Laboratory Results - last 24 hr 03/14/25 03/14/25 03/14/25 12:16 17:07 19:57 POC Glucose 208 H 135 H 159 H 03/15/25 08:29 POC Glucose 120 H Current Inpatient Medications Current Inpatient Medications: Current Inpatient Medications Acetaminophen (Acetaminophen 325 Mg Tab) 650 mg PO Q4H PRN PRN Reason: Headache or Minor Fever Stop: 03/26/25 15:08 Buspirone HCl (Buspirone 15 Mg Tab) 15 mg PO QAM [facility] Stop: 03/28/25 08:59 Last Admin: 03/15/25 08:33 Dose: 15 mg Buspirone HCl (Buspirone 15 Mg Tab) 15 mg PO 2000 [facility] Stop: 03/27/25 19:59 Last Admin: 03/14/25 20:22 Dose: 15 mg Chlorpromazine HCl (Chlorpromazine Hcl 25 Mg Tab) 25 mg PO DAILY PRN PRN Reason: Agitation Stop: 04/03/25 13:08 Last Admin: 03/04/25 17:16 Dose: 25 mg Dextrose (Dextrose 50% 50 Ml Syringe) 25 - 50 ml IV UD PRN; Protocol PRN Reason: Hypoglycemia Protocol Stop: 03/26/25 16:29 Fluoxetine HCl (Fluoxetine Hcl 20 Mg Cap) 60 mg PO QAM [facility] Stop: 04/08/25 08:59 Last Admin: 03/15/25 08:33 Dose: 60 mg Glucagon (Glucagon For Inj 1 Mg Vial) 1 mg SQ UD PRN; Protocol PRN Reason: Hypoglycemia Protocol Stop: 03/26/25 16:29 Glucose (Glucose 40% Gel 15 Gm Tube) 15 - 30 gm PO UD PRN; Protocol PRN Reason: Hypoglycemia Protocol Stop: 03/26/25 16:29 Glucose (Glucose 10 Tab/Tube) 4 - 8 tab PO UD PRN; Protocol PRN Reason: Hypoglycemia Protocol Stop: 03/26/25 16:29 Hydroxyzine HCl (Hydroxyzine Hcl 25 Mg Tab) 50 mg PO HSZ PRN PRN Reason: Insomnia Stop: 03/26/25 15:08 Last Admin: 03/05/25 21:15 Dose: 50 mg Hydroxyzine HCl (Hydroxyzine Hcl 25 Mg Tab) 25 mg PO Q4H PRN PRN Reason: Anxiety Stop: 03/26/25 15:08 Last Admin: 03/08/25 10:07 Dose: 25 mg Insulin Aspart (Insulin Aspart Per Unit Charge) 0 units SC ACHS [facility] Stop: 03/26/25 17:14 Last Admin: 03/14/25 20:27 Dose: 2 units Insulin Glargine (Lantus Per Unit Charge) 6 units SQ HS [facility] Stop: 03/27/25 21:59 Last Admin: 03/14/25 20:27 Dose: 6 units Lorazepam (Lorazepam 1 Mg Tab) 1 mg PO TID PRN PRN Reason: panic attacks Stop: 04/03/25 13:04 Last Admin: 03/10/25 19:22 Dose: 1 mg Midodrine (Midodrine Hcl 2.5 Mg Tab) 5 mg PO QAM [facility] Stop: 03/27/25 08:59 Last Admin: 03/15/25 08:33 Dose: 5 mg Midodrine (Midodrine Hcl 2.5 Mg Tab) 5 mg PO 2000 [facility] Stop: 03/26/25 19:59 Last Admin: 03/14/25 20:22 Dose: 5 mg Mirtazapine (Mirtazapine Tab 15 Mg Tab) 7.5 mg PO HS PRN PRN Reason: insomnia Stop: 04/05/25 21:59 Last Admin: 03/15/25 03:57 Dose: 7.5 mg Mirtazapine (Mirtazapine Tab 15 Mg Tab) 7.5 mg PO 1999 [facility] Stop: 04/05/25 19:59 Last Admin: 03/14/25 20:23 Dose: 7.5 mg Miscellaneous (Carbohydrates For Hypoglycemia ) 15 - 30 gm PO UD PRN PRN Reason: Hypoglycemia Treatment Stop: 03/26/25 16:29 Last Admin: 02/24/25 20:06 Dose: 15 gm Miscellaneous (Remove Nicoderm Patch) 1 each N/A DAILY@2100 [facility] Stop: 03/26/25 20:59 Last Admin: 03/14/25 20:28 Dose: 1 each Nicotine (Nicotine 14 Mg/24 Hr Patch) 1 patch TD QAM [facility] Stop: 03/26/25 16:59 Last Admin: 03/15/25 08:36 Dose: 1 patch Risperidone (Risperidone Odt 0.5 Mg Soltab) 1 mg PO TID PRN PRN Reason: Agitation Stop: 04/03/25 11:21 Last Admin: 03/11/25 14:33 Dose: 1 mg Risperidone (Risperidone 1 Mg Tablet) 1 mg PO DAILYBL [facility] Stop: 04/11/25 11:59 Last Admin: 03/14/25 12:20 Dose: 1 mg Sodium Chloride (Sodium Chloride 0.65% Na Soln 45 Ml ([place])) 1 - 2 sprays NA PRN PRN PRN Reason: Nasal Dryness/Congestion Stop: 03/26/25 15:08 Mental Health & Subst Abuse Tx Psychiatrist Name of Psychiatrist: Sharita Abarca Psychiatrist's Date Of Appointment With Psychiatric Provider: 02/27/25 [facility] [address] [facility] [place] [id number] The[facility]ist Name of Therapist: Sharita Abarca Therapist's Date of Therapist Appointment: 02/28/25 [facility] [address] [facility] [id number] Field Application Engineer Name of Field Application Engineer: Syed Esparza Phone Number for Field Application Engineer: [phone] Date of Appointment with Field Application Engineer: 03/23/25 Time of Appointment with Field Application Engineer: 2:30PM Case Management Appointment Comment: cell #: [phone] Post Discharge Appointments Primary Care Physician Name Of Family Doctor/PCP: Dr. T[place]/ [place] Date of Future Appointment with PCP: 03/23/2025 Contact Information Discharge Discharge Address: [address] [place] [id number]
--- NOTE | 2025-03-16 08:49 | Discharge Summary ---
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 Cr Clr Drug Dosing eGFR BUN/Creatinine Ratio Glucose POC Glucose 178 H 149 H 127 H Estimat Average Glucose Hemoglobin A1c Calcium Total Bilirubin AST ALT Alkaline Phosphatase C-Reactive Protein Total Protein Albumin Globulin Albumin/Globulin Ratio Triglycerides Cholesterol LDL Cholesterol, Calc VLDL Cholesterol, Calc HDL Cholesterol Cholesterol/HDL Ratio Vitamin B12 25-OH Vitamin D Total TSH HCG, Qual Urine Color Urine Appearance Urine pH Ur Specific [place] Urine Protein Urine Glucose (UA) Urine Ketones Urine Blood Urine Nitrite Urine Bilirubin Urine Urobilinogen Ur Leukocyte Esterase Urine WBC (Auto) Urine RBC (Auto) U Hyaline Cast (Auto) U Epithel Cells (Auto) Urine Bacteria (Auto) Urine Comment Salicylates Urine Opiates Screen Ur Methadone, Qual Urine Fentanyl Screen Acetaminophen Urine Barbiturates Ur Phencyclidine (PCP) U Amphetamin/Meth Scrn Urine MDEA MDMA (Ecstasy) Screen MDMA Urine MDMA U Benzodiazepines Scrn Ur Cocaine Metabolite U Marijuana (THC) Screen Ethyl Alcohol mg/dL SARS-CoV-2, RNA, NAAT 03/04/25 03/05/25 03/05/25 21:27 08:08 12:11 WBC RBC Hgb Hct MCV MCH MCHC RDW Std Deviation RDW Coeff of [place] Plt Count MPV Immature Gran % (Auto) Neut % (Auto) Lymph % (Auto) Moca % (Auto) Eos % (Auto) Baso % (Auto) Neut # (Auto) Lymph # (Auto) Moca # (Auto) Eos # (Auto) Baso # (Auto) Immature Gran # (Auto) ESR Sodium Potassium Chloride Carbon Dioxide Anion Gap BUN Creatinine Est Cr Clr Drug Dosing eGFR BUN/Creatinine Ratio Glucose POC Glucose 170 H 170 H 199 H Estimat Average Glucose Hemoglobin A1c Calcium Total Bilirubin AST ALT Alkaline Phosphatase C-Reactive Protein Total Protein Albumin Globulin Albumin/Globulin Ratio Triglycerides Cholesterol LDL Cholesterol, Calc VLDL Cholesterol, Calc HDL Cholesterol Cholesterol/HDL Ratio Vitamin B12 25-OH Vitamin D Total TSH HCG, Qual Urine Color Urine Appearance Urine pH Ur Specific [place] Urine Protein Urine Glucose (UA) Urine Ketones Urine Blood Urine Nitrite Urine Bilirubin Urine Urobilinogen Ur Leukocyte Esterase Urine WBC (Auto) Urine RBC (Auto) U Hyaline Cast (Auto) U Epithel Cells (Auto) Urine Bacteria (Auto) Urine Comment Salicylates Urine Opiates Screen Ur Methadone, Qual Urine Fentanyl Screen Acetaminophen Urine Barbiturates Ur Phencyclidine (PCP) U Amphetamin/Meth Scrn Urine MDEA MDMA (Ecstasy) Screen MDMA Urine MDMA U Benzodiazepines Scrn Ur Cocaine Metabolite U Marijuana (THC) Screen Ethyl Alcohol mg/dL SARS-CoV-2, RNA, NAAT 03/05/25 03/05/25 03/06/25 17:13 20:01 08:12 WBC RBC Hgb Hct MCV MCH MCHC RDW Std Deviation RDW Coeff of [place] Plt Count MPV Immature Gran % (Auto) Neut % (Auto) Lymph % (Auto) Moca % (Auto) Eos % (Auto) Baso % (Auto) Neut # (Auto) Lymph # (Auto) Moca # (Auto) Eos # (Auto) Baso # (Auto) Immature Gran # (Auto) ESR Sodium Potassium Chloride Carbon Dioxide Anion Gap BUN Creatinine Est Cr Clr Drug Dosing eGFR BUN/Creatinine Ratio Glucose POC Glucose 104 H 184 H 160 H Estimat Average Glucose Hemoglobin A1c Calcium Total Bilirubin AST ALT Alkaline Phosphatase C-Reactive Protein Total Protein Albumin Globulin Albumin/Globulin Ratio Triglycerides Cholesterol LDL Cholesterol, Calc VLDL Cholesterol, Calc HDL Cholesterol Cholesterol/HDL Ratio Vitamin B12 25-OH Vitamin D Total TSH HCG, Qual Urine Color Urine Appearance Urine pH Ur Specific [place] Urine Protein Urine Glucose (UA) Urine Ketones Urine Blood Urine Nitrite Urine Bilirubin Urine Urobilinogen Ur Leukocyte Esterase Urine WBC (Auto) Urine RBC (Auto) U Hyaline Cast (Auto) U Epithel Cells (Auto) Urine Bacteria (Auto) Urine Comment Salicylates Urine Opiates Screen Ur Methadone, Qual Urine Fentanyl Screen Acetaminophen Urine Barbiturates Ur Phencyclidine (PCP) U Amphetamin/Meth Scrn Urine MDEA MDMA (Ecstasy) Screen MDMA Urine MDMA U Benzodiazepines Scrn Ur Cocaine Metabolite U Marijuana (THC) Screen Ethyl Alcohol mg/dL SARS-CoV-2, RNA, NAAT 03/06/25 03/06/25 03/06/25 12:15 16:47 20:11 WBC RBC Hgb Hct MCV MCH MCHC RDW Std Deviation RDW Coeff of [place] Plt Count MPV Immature Gran % (Auto) Neut % (Auto) Lymph % (Auto) Moca % (Auto) Eos % (Auto) Baso % (Auto) Neut # (Auto) Lymph # (Auto) Moca # (Auto) Eos # (Auto) Baso # (Auto) Immature Gran # (Auto) ESR Sodium Potassium Chloride Carbon Dioxide Anion Gap BUN Creatinine Est Cr Clr Drug Dosing eGFR BUN/Creatinine Ratio Glucose POC Glucose 137 H 179 H 145 H Estimat Average Glucose Hemoglobin A1c Calcium Total Bilirubin AST ALT Alkaline Phosphatase C-Reactive Protein Total Protein Albumin Globulin Albumin/Globulin Ratio Triglycerides Cholesterol LDL Cholesterol, Calc VLDL Cholesterol, Calc HDL Cholesterol Cholesterol/HDL Ratio Vitamin B12 25-OH Vitamin D Total TSH HCG, Qual Urine Color Urine Appearance Urine pH Ur Specific [place] Urine Protein Urine Glucose (UA) Urine Ketones Urine Blood Urine Nitrite Urine Bilirubin Urine Urobilinogen Ur Leukocyte Esterase Urine WBC (Auto) Urine RBC (Auto) U Hyaline Cast (Auto) U Epithel Cells (Auto) Urine Bacteria (Auto) Urine Comment Salicylates Urine Opiates Screen Ur Methadone, Qual Urine Fentanyl Screen Acetaminophen Urine Barbiturates Ur Phencyclidine (PCP) U Amphetamin/Meth Scrn Urine MDEA MDMA (Ecstasy) Screen MDMA Urine MDMA U Benzodiazepines Scrn Ur Cocaine Metabolite U Marijuana (THC) Screen Ethyl Alcohol mg/dL SARS-CoV-2, RNA, NAAT 03/07/25 03/07/25 03/07/25 07:51 12:07 17:29 WBC RBC Hgb Hct MCV MCH MCHC RDW Std Deviation RDW Coeff of [place] Plt Count MPV Immature Gran % (Auto) Neut % (Auto) Lymph % (Auto) Moca % (Auto) Eos % (Auto) Baso % (Auto) Neut # (Auto) Lymph # (Auto) Moca # (Auto) Eos # (Auto) Baso # (Auto) Immature Gran # (Auto) ESR Sodium Potassium Chloride Carbon Dioxide Anion Gap BUN Creatinine Est Cr Clr Drug Dosing eGFR BUN/Creatinine Ratio Glucose POC Glucose 131 H 127 H 123 H Estimat Average Glucose Hemoglobin A1c Calcium Total Bilirubin AST ALT Alkaline Phosphatase C-Reactive Protein Total Protein Albumin Globulin Albumin/Globulin Ratio Triglycerides Cholesterol LDL Cholesterol, Calc VLDL Cholesterol, Calc HDL Cholesterol Cholesterol/HDL Ratio Vitamin B12 25-OH Vitamin D Total TSH HCG, Qual Urine Color Urine Appearance Urine pH Ur Specific [place] Urine Protein Urine Glucose (UA) Urine Ketones Urine Blood Urine Nitrite Urine Bilirubin Urine Urobilinogen Ur Leukocyte Esterase Urine WBC (Auto) Urine RBC (Auto) U Hyaline Cast (Auto) U Epithel Cells (Auto) Urine Bacteria (Auto) Urine Comment Salicylates Urine Opiates Screen Ur Methadone, Qual Urine Fentanyl Screen Acetaminophen Urine Barbiturates Ur Phencyclidine (PCP) U Amphetamin/Meth Scrn Urine MDEA MDMA (Ecstasy) Screen MDMA Urine MDMA U Benzodiazepines Scrn Ur Cocaine Metabolite U Marijuana (THC) Screen Ethyl Alcohol mg/dL SARS-CoV-2, RNA, NAAT 03/07/25 03/08/25 03/08/25 20:46 07:59 11:58 WBC RBC Hgb Hct MCV MCH MCHC RDW Std Deviation RDW Coeff of [place] Plt Count MPV Immature Gran % (Auto) Neut % (Auto) Lymph % (Auto) Moca % (Auto) Eos % (Auto) Baso % (Auto) Neut # (Auto) Lymph # (Auto) Moca # (Auto) Eos # (Auto) Baso # (Auto) Immature Gran # (Auto) ESR Sodium Potassium Chloride Carbon Dioxide Anion Gap BUN Creatinine Est Cr Clr Drug Dosing eGFR BUN/Creatinine Ratio Glucose POC Glucose 174 H 138 H 172 H Estimat Average Glucose Hemoglobin A1c Calcium Total Bilirubin AST ALT Alkaline Phosphatase C-Reactive Protein Total Protein Albumin Globulin Albumin/Globulin Ratio Triglycerides Cholesterol LDL Cholesterol, Calc VLDL Cholesterol, Calc HDL Cholesterol Cholesterol/HDL Ratio Vitamin B12 25-OH Vitamin D Total TSH HCG, Qual Urine Color Urine Appearance Urine pH Ur Specific [place] Urine Protein Urine Glucose (UA) Urine Ketones Urine Blood Urine Nitrite Urine Bilirubin Urine Urobilinogen Ur Leukocyte Esterase Urine WBC (Auto) Urine RBC (Auto) U Hyaline Cast (Auto) U Epithel Cells (Auto) Urine Bacteria (Auto) Urine Comment Salicylates Urine Opiates Screen Ur Methadone, Qual Urine Fentanyl Screen Acetaminophen Urine Barbiturates Ur Phencyclidine (PCP) U Amphetamin/Meth Scrn Urine MDEA MDMA (Ecstasy) Screen MDMA Urine MDMA U Benzodiazepines Scrn Ur Cocaine Metabolite U Marijuana (THC) Screen Ethyl Alcohol mg/dL SARS-CoV-2, RNA, NAAT 03/08/25 03/08/25 03/09/25 17:25 20:46 07:58 WBC RBC Hgb Hct MCV MCH MCHC RDW Std Deviation RDW Coeff of [place] Plt Count MPV Immature Gran % (Auto) Neut % (Auto) Lymph % (Auto) Moca % (Auto) Eos % (Auto) Baso % (Auto) Neut # (Auto) Lymph # (Auto) Moca # (Auto) Eos # (Auto) Baso # (Auto) Immature Gran # (Auto) ESR Sodium Potassium Chloride Carbon Dioxide Anion Gap BUN Creatinine Est Cr Clr Drug Dosing eGFR BUN/Creatinine Ratio Glucose POC Glucose 102 H 167 H 131 H Estimat Average Glucose Hemoglobin A1c Calcium Total Bilirubin AST ALT Alkaline Phosphatase C-Reactive Protein Total Protein Albumin Globulin Albumin/Globulin Ratio Triglycerides Cholesterol LDL Cholesterol, Calc VLDL Cholesterol, Calc HDL Cholesterol Cholesterol/HDL Ratio Vitamin B12 25-OH Vitamin D Total TSH HCG, Qual Urine Color Urine Appearance Urine pH Ur Specific [place] Urine Protein Urine Glucose (UA) Urine Ketones Urine Blood Urine Nitrite Urine Bilirubin Urine Urobilinogen Ur Leukocyte Esterase Urine WBC (Auto) Urine RBC (Auto) U Hyaline Cast (Auto) U Epithel Cells (Auto) Urine Bacteria (Auto) Urine Comment Salicylates Urine Opiates Screen Ur Methadone, Qual Urine Fentanyl Screen Acetaminophen Urine Barbiturates Ur Phencyclidine (PCP) U Amphetamin/Meth Scrn Urine MDEA MDMA (Ecstasy) Screen MDMA Urine MDMA U Benzodiazepines Scrn Ur Cocaine Metabolite U Marijuana (THC) Screen Ethyl Alcohol mg/dL SARS-CoV-2, RNA, NAAT 03/09/25 03/09/25 03/09/25 12:08 17:09 19:50 WBC RBC Hgb Hct MCV MCH MCHC RDW Std Deviation RDW Coeff of [place] Plt Count MPV Immature Gran % (Auto) Neut % (Auto) Lymph % (Auto) Moca % (Auto) Eos % (Auto) Baso % (Auto) Neut # (Auto) Lymph # (Auto) Moca # (Auto) Eos # (Auto) Baso # (Auto) Immature Gran # (Auto) ESR Sodium Potassium Chloride Carbon Dioxide Anion Gap BUN Creatinine Est Cr Clr Drug Dosing eGFR BUN/Creatinine Ratio Glucose POC Glucose 189 H 138 H 240 H Estimat Average Glucose Hemoglobin A1c Calcium Total Bilirubin AST ALT Alkaline Phosphatase C-Reactive Protein Total Protein Albumin Globulin Albumin/Globulin Ratio Triglycerides Cholesterol LDL Cholesterol, Calc VLDL Cholesterol, Calc HDL Cholesterol Cholesterol/HDL Ratio Vitamin B12 25-OH Vitamin D Total TSH HCG, Qual Urine Color Urine Appearance Urine pH Ur Specific [place] Urine Protein Urine Glucose (UA) Urine Ketones Urine Blood Urine Nitrite Urine Bilirubin Urine Urobilinogen Ur Leukocyte Esterase Urine WBC (Auto) Urine RBC (Auto) U Hyaline Cast (Auto) U Epithel Cells (Auto) Urine Bacteria (Auto) Urine Comment Salicylates Urine Opiates Screen Ur Methadone, Qual Urine Fentanyl Screen Acetaminophen Urine Barbiturates Ur Phencyclidine (PCP) U Amphetamin/Meth Scrn Urine MDEA MDMA (Ecstasy) Screen MDMA Urine MDMA U Benzodiazepines Scrn Ur Cocaine Metabolite U Marijuana (THC) Screen Ethyl Alcohol mg/dL SARS-CoV-2, RNA, NAAT 03/10/25 03/10/25 03/10/25 08:15 12:08 17:07 WBC RBC Hgb Hct MCV MCH MCHC RDW Std Deviation RDW Coeff of [place] Plt Count MPV Immature Gran % (Auto) Neut % (Auto) Lymph % (Auto) [place] % (Auto) Eos % (Auto) Baso % (Auto) Neut # (Auto) Lymph # (Auto) Moca # (Auto) Eos # (Auto) Baso # (Auto) Immature Gran # (Auto) ESR Sodium Potassium Chloride Carbon Dioxide Anion Gap BUN Creatinine Est Cr Clr Drug Dosing eGFR BUN/Creatinine Ratio Glucose POC Glucose 130 H 168 H 193 H Estimat Average Glucose Hemoglobin A1c Calcium Total Bilirubin AST ALT Alkaline Phosphatase C-Reactive Protein Total Protein Albumin Globulin Albumin/Globulin Ratio Triglycerides Cholesterol LDL Cholesterol, Calc VLDL Cholesterol, Calc HDL Cholesterol Cholesterol/HDL Ratio Vitamin B12 25-OH Vitamin D Total TSH HCG, Qual Urine Color Urine Appearance Urine pH Ur Specific [place] Urine Protein Urine Glucose (UA) Urine Ketones Urine Blood Urine Nitrite Urine Bilirubin Urine Urobilinogen Ur Leukocyte Esterase Urine WBC (Auto) Urine RBC (Auto) U Hyaline Cast (Auto) U Epithel Cells (Auto) Urine Bacteria (Auto) Urine Comment Salicylates Urine Opiates Screen Ur Methadone, Qual Urine Fentanyl Screen Acetaminophen Urine Barbiturates Ur Phencyclidine (PCP) U Amphetamin/Meth Scrn Urine MDEA MDMA (Ecstasy) Screen MDMA Urine MDMA U Benzodiazepines Scrn Ur Cocaine Metabolite U Marijuana (THC) Screen Ethyl Alcohol mg/dL SARS-CoV-2, RNA, NAAT 03/10/25 03/11/25 03/11/25 20:05 08:26 12:08 WBC RBC Hgb Hct MCV MCH MCHC RDW Std Deviation RDW Coeff of [place] Plt Count MPV Immature Gran % (Auto) Neut % (Auto) Lymph % (Auto) Moca % (Auto) Eos % (Auto) Baso % (Auto) Neut # (Auto) Lymph # (Auto) Moca # (Auto) Eos # (Auto) Baso # (Auto) Immature Gran # (Auto) ESR Sodium Potassium Chloride Carbon Dioxide Anion Gap BUN Creatinine Est Cr Clr Drug Dosing eGFR BUN/Creatinine Ratio Glucose POC Glucose 130 H 119 H 223 H Estimat Average Glucose Hemoglobin A1c Calcium Total Bilirubin AST ALT Alkaline Phosphatase C-Reactive Protein Total Protein Albumin Globulin Albumin/Globulin Ratio Triglycerides Cholesterol LDL Cholesterol, Calc VLDL Cholesterol, Calc HDL Cholesterol Cholesterol/HDL Ratio Vitamin B12 25-OH Vitamin D Total TSH HCG, Qual Urine Color Urine Appearance Urine pH Ur Specific [place] Urine Protein Urine Glucose (UA) Urine Ketones Urine Blood Urine Nitrite Urine Bilirubin Urine Urobilinogen Ur Leukocyte Esterase Urine WBC (Auto) Urine RBC (Auto) U Hyaline Cast (Auto) U Epithel Cells (Auto) Urine Bacteria (Auto) Urine Comment Salicylates Urine Opiates Screen Ur Methadone, Qual Urine Fentanyl Screen Acetaminophen Urine Barbiturates Ur Phencyclidine (PCP) U Amphetamin/Meth Scrn Urine MDEA MDMA (Ecstasy) Screen MDMA Urine MDMA U Benzodiazepines Scrn Ur Cocaine Metabolite U Marijuana (THC) Screen Ethyl Alcohol mg/dL SARS-CoV-2, RNA, NAAT 03/11/25 03/11/25 03/12/25 17:04 19:54 08:10 WBC RBC Hgb Hct MCV MCH MCHC RDW Std Deviation RDW Coeff of [place] Plt Count MPV Immature Gran % (Auto) Neut % (Auto) Lymph % (Auto) [place] % (Auto) Eos % (Auto) Baso % (Auto) Neut # (Auto) Lymph # (Auto) Moca # (Auto) Eos # (Auto) Baso # (Auto) Immature Gran # (Auto) ESR Sodium Potassium Chloride Carbon Dioxide Anion Gap BUN Creatinine Est Cr Clr Drug Dosing eGFR BUN/Creatinine Ratio Glucose POC Glucose 156 H 156 H 132 H Estimat Average Glucose Hemoglobin A1c Calcium Total Bilirubin AST ALT Alkaline Phosphatase C-Reactive Protein Total Protein Albumin Globulin Albumin/Globulin Ratio Triglycerides Cholesterol LDL Cholesterol, Calc VLDL Cholesterol, Calc HDL Cholesterol Cholesterol/HDL Ratio Vitamin B12 25-OH Vitamin D Total TSH HCG, Qual Urine Color Urine Appearance Urine pH Ur Specific [place] Urine Protein Urine Glucose (UA) Urine Ketones Urine Blood Urine Nitrite Urine Bilirubin Urine Urobilinogen Ur Leukocyte Esterase Urine WBC (Auto) Urine RBC (Auto) U Hyaline Cast (Auto) U Epithel Cells (Auto) Urine Bacteria (Auto) Urine Comment Salicylates Urine Opiates Screen Ur Methadone, Qual Urine Fentanyl Screen Acetaminophen Urine Barbiturates Ur Phencyclidine (PCP) U Amphetamin/Meth Scrn Urine MDEA MDMA (Ecstasy) Screen MDMA Urine MDMA U Benzodiazepines Scrn Ur Cocaine Metabolite U Marijuana (THC) Screen Ethyl Alcohol mg/dL SARS-CoV-2, RNA, NAAT 03/12/25 03/12/25 03/12/25 11:48 17:15 19:58 WBC RBC Hgb Hct MCV MCH MCHC RDW Std Deviation RDW Coeff of [place] Plt Count MPV Immature Gran % (Auto) Neut % (Auto) Lymph % (Auto) [place] % (Auto) Eos % (Auto) Baso % (Auto) Neut # (Auto) Lymph # (Auto) Moca # (Auto) Eos # (Auto) Baso # (Auto) Immature Gran # (Auto) ESR Sodium Potassium Chloride Carbon Dioxide Anion Gap BUN Creatinine Est Cr Clr Drug Dosing eGFR BUN/Creatinine Ratio Glucose POC Glucose 254 H 136 H 236 H Estimat Average Glucose Hemoglobin A1c Calcium Total Bilirubin AST ALT Alkaline Phosphatase C-Reactive Protein Total Protein Albumin Globulin Albumin/Globulin Ratio Triglycerides Cholesterol LDL Cholesterol, Calc VLDL Cholesterol, Calc HDL Cholesterol Cholesterol/HDL Ratio Vitamin B12 25-OH Vitamin D Total TSH HCG, Qual Urine Color Urine Appearance Urine pH Ur Specific [place] Urine Protein Urine Glucose (UA) Urine Ketones Urine Blood Urine Nitrite Urine Bilirubin Urine Urobilinogen Ur Leukocyte Esterase Urine WBC (Auto) Urine RBC (Auto) U Hyaline Cast (Auto) U Epithel Cells (Auto) Urine Bacteria (Auto) Urine Comment Salicylates Urine Opiates Screen Ur Methadone, Qual Urine Fentanyl Screen Acetaminophen Urine Barbiturates Ur Phencyclidine (PCP) U Amphetamin/Meth Scrn Urine MDEA MDMA (Ecstasy) Screen MDMA Urine MDMA U Benzodiazepines Scrn Ur Cocaine Metabolite U Marijuana (THC) Screen Ethyl Alcohol mg/dL SARS-CoV-2, RNA, NAAT 03/13/25 03/13/25 03/13/25 08:09 11:35 17:11 WBC RBC Hgb Hct MCV MCH MCHC RDW Std Deviation RDW Coeff of [place] Plt Count MPV Immature Gran % (Auto) Neut % (Auto) Lymph % (Auto) [place] % (Auto) Eos % (Auto) Baso % (Auto) Neut # (Auto) Lymph # (Auto) Moca # (Auto) Eos # (Auto) Baso # (Auto) Immature Gran # (Auto) ESR Sodium Potassium Chloride Carbon Dioxide Anion Gap BUN Creatinine Est Cr Clr Drug Dosing eGFR BUN/Creatinine Ratio Glucose POC Glucose 127 H 272 H 83 Estimat Average Glucose Hemoglobin A1c Calcium Total Bilirubin AST ALT Alkaline Phosphatase C-Reactive Protein Total Protein Albumin Globulin Albumin/Globulin Ratio Triglycerides Cholesterol LDL Cholesterol, Calc VLDL Cholesterol, Calc HDL Cholesterol Cholesterol/HDL Ratio Vitamin B12 25-OH Vitamin D Total TSH HCG, Qual Urine Color Urine Appearance Urine pH Ur Specific [place] Urine Protein Urine Glucose (UA) Urine Ketones Urine Blood Urine Nitrite Urine Bilirubin Urine Urobilinogen Ur Leukocyte Esterase Urine WBC (Auto) Urine RBC (Auto) U Hyaline Cast (Auto) U Epithel Cells (Auto) Urine Bacteria (Auto) Urine Comment Salicylates Urine Opiates Screen Ur Methadone, Qual Urine Fentanyl Screen Acetaminophen Urine Barbiturates Ur Phencyclidine (PCP) U Amphetamin/Meth Scrn Urine MDEA MDMA (Ecstasy) Screen MDMA Urine MDMA U Benzodiazepines Scrn Ur Cocaine Metabolite U Marijuana (THC) Screen Ethyl Alcohol mg/dL SARS-CoV-2, RNA, NAAT 03/13/25 03/14/25 03/14/25 20:12 08:19 12:16 WBC RBC Hgb Hct MCV MCH MCHC RDW Std Deviation RDW Coeff of [place] Plt Count MPV Immature Gran % (Auto) Neut % (Auto) Lymph % (Auto) [place] % (Auto) Eos % (Auto) Baso % (Auto) Neut # (Auto) Lymph # (Auto) Moca # (Auto) Eos # (Auto) Baso # (Auto) Immature Gran # (Auto) ESR Sodium Potassium Chloride Carbon Dioxide Anion Gap BUN Creatinine Est Cr Clr Drug Dosing eGFR BUN/Creatinine Ratio Glucose POC Glucose 191 H 127 H 208 H Estimat Average Glucose Hemoglobin A1c Calcium Total Bilirubin AST ALT Alkaline Phosphatase C-Reactive Protein Total Protein Albumin Globulin Albumin/Globulin Ratio Triglycerides Cholesterol LDL Cholesterol, Calc VLDL Cholesterol, Calc HDL Cholesterol Cholesterol/HDL Ratio Vitamin B12 25-OH Vitamin D Total TSH HCG, Qual Urine Color Urine Appearance Urine pH Ur Specific [place] Urine Protein Urine Glucose (UA) Urine Ketones Urine Blood Urine Nitrite Urine Bilirubin Urine Urobilinogen Ur Leukocyte Esterase Urine WBC (Auto) Urine RBC (Auto) U Hyaline Cast (Auto) U Epithel Cells (Auto) Urine Bacteria (Auto) Urine Comment Salicylates Urine Opiates Screen Ur Methadone, Qual Urine Fentanyl Screen Acetaminophen Urine Barbiturates Ur Phencyclidine (PCP) U Amphetamin/Meth Scrn Urine MDEA MDMA (Ecstasy) Screen MDMA Urine MDMA U Benzodiazepines Scrn Ur Cocaine Metabolite U Marijuana (THC) Screen Ethyl Alcohol mg/dL SARS-CoV-2, RNA, NAAT 03/14/25 03/14/25 03/15/25 17:07 19:57 08:29 WBC RBC Hgb Hct MCV MCH MCHC RDW Std Deviation RDW Coeff of [place] Plt Count MPV Immature Gran % (Auto) Neut % (Auto) Lymph % (Auto) [place] % (Auto) Eos % (Auto) Baso % (Auto) Neut # (Auto) Lymph # (Auto) Moca # (Auto) Eos # (Auto) Baso # (Auto) Immature Gran # (Auto) ESR Sodium Potassium Chloride Carbon Dioxide Anion Gap BUN Creatinine Est Cr Clr Drug Dosing eGFR BUN/Creatinine Ratio Glucose POC Glucose 135 H 159 H 120 H Estimat Average Glucose Hemoglobin A1c Calcium Total Bilirubin AST ALT Alkaline Phosphatase C-Reactive Protein Total Protein Albumin Globulin Albumin/Globulin Ratio Triglycerides Cholesterol LDL Cholesterol, Calc VLDL Cholesterol, Calc HDL Cholesterol Cholesterol/HDL Ratio Vitamin B12 25-OH Vitamin D Total TSH HCG, Qual Urine Color Urine Appearance Urine pH Ur Specific [place] Urine Protein Urine Glucose (UA) Urine Ketones Urine Blood Urine Nitrite Urine Bilirubin Urine Urobilinogen Ur Leukocyte Esterase Urine WBC (Auto) Urine RBC (Auto) U Hyaline Cast (Auto) U Epithel Cells (Auto) Urine Bacteria (Auto) Urine Comment Salicylates Urine Opiates Screen Ur Methadone, Qual Urine Fentanyl Screen Acetaminophen Urine Barbiturates Ur Phencyclidine (PCP) U Amphetamin/Meth Scrn Urine MDEA MDMA (Ecstasy) Screen MDMA Urine MDMA U Benzodiazepines Scrn Ur Cocaine Metabolite U Marijuana (THC) Screen Ethyl Alcohol mg/dL SARS-CoV-2, RNA, NAAT 03/15/25 03/15/25 03/15/25 12:36 12:45 17:17 WBC RBC Hgb Hct MCV MCH MCHC RDW Std Deviation RDW Coeff of [place] Plt Count MPV Immature Gran % (Auto) Neut % (Auto) Lymph % (Auto) Moca % (Auto) Eos % (Auto) Baso % (Auto) Neut # (Auto) Lymph # (Auto) Moca # (Auto) Eos # (Auto) Baso # (Auto) Immature Gran # (Auto) ESR Sodium Potassium Chloride Carbon Dioxide Anion Gap BUN Creatinine Est Cr Clr Drug Dosing eGFR BUN/Creatinine Ratio Glucose POC Glucose 129 H 180 H Estimat Average Glucose Hemoglobin A1c Calcium Total Bilirubin AST ALT Alkaline Phosphatase C-Reactive Protein Total Protein Albumin Globulin Albumin/Globulin Ratio Triglycerides Cholesterol LDL Cholesterol, Calc VLDL Cholesterol, Calc HDL Cholesterol Cholesterol/HDL Ratio Vitamin B12 25-OH Vitamin D Total TSH HCG, Qual Urine Color Urine Appearance Urine pH Ur Specific [place] Urine Protein Urine Glucose (UA) Urine Ketones Urine Blood Urine Nitrite Urine Bilirubin Urine Urobilinogen Ur Leukocyte Esterase Urine WBC (Auto) Urine RBC (Auto) U Hyaline Cast (Auto) U Epithel Cells (Auto) Urine Bacteria (Auto) Urine Comment Salicylates Urine Opiates Screen Ur Methadone, Qual Urine Fentanyl Screen Acetaminophen Urine Barbiturates Ur Phencyclidine (PCP) U Amphetamin/Meth Scrn Urine MDEA MDMA (Ecstasy) Screen MDMA Urine MDMA U Benzodiazepines Scrn Ur Cocaine Metabolite U Marijuana (THC) Screen Ethyl Alcohol mg/dL SARS-CoV-2, RNA, NAAT NEGATIVE 03/15/25 03/16/25 19:52 08:32 WBC RBC Hgb Hct MCV MCH MCHC RDW Std Deviation RDW Coeff of [place] Plt Count MPV Immature Gran % (Auto) Neut % (Auto) Lymph % (Auto) Moca % (Auto) Eos % (Auto) Baso % (Auto) Neut # (Auto) Lymph # (Auto) Moca # (Auto) Eos # (Auto) Baso # (Auto) Immature Gran # (Auto) ESR Sodium Potassium Chloride Carbon Dioxide Anion Gap BUN Creatinine Est Cr Clr Drug Dosing eGFR BUN/Creatinine Ratio Glucose POC Glucose 161 H 140 H Estimat Average Glucose Hemoglobin A1c Calcium Total Bilirubin AST ALT Alkaline Phosphatase C-Reactive Protein Total Protein Albumin Globulin Albumin/Globulin Ratio Triglycerides Cholesterol LDL Cholesterol, Calc VLDL Cholesterol, Calc HDL Cholesterol Cholesterol/HDL Ratio Vitamin B12 25-OH Vitamin D Total TSH HCG, Qual Urine Color Urine Appearance Urine pH Ur Specific [place] Urine Protein Urine Glucose (UA) Urine Ketones Urine Blood Urine Nitrite Urine Bilirubin Urine Urobilinogen Ur Leukocyte Esterase Urine WBC (Auto) Urine RBC (Auto) U Hyaline Cast (Auto) U Epithel Cells (Auto) Urine Bacteria (Auto) Urine Comment Salicylates Urine Opiates Screen Ur Methadone, Qual Urine Fentanyl Screen Acetaminophen Urine Barbiturates Ur Phencyclidine (PCP) U Amphetamin/Meth Scrn Urine MDEA MDMA (Ecstasy) Screen MDMA Urine MDMA U Benzodiazepines Scrn Ur Cocaine Metabolite U Marijuana (THC) Screen Ethyl Alcohol mg/dL SARS-CoV-2, RNA, NAAT Hospital Course (1) Recurrent severe major depressive disorder with anxiety: (2) Generalized anxiety disorder with panic attacks: (3) Suicidal ideation: (4) Insomnia: Plan 03/16/2025: -She feels ready for discharge to [facility] via secure transport 03/15/2025: -COVID test ordered for EAC admission requirement -Ativan 2mg po daily tomorrow 30 minutes prior to discharge 03/14/2025: -Continue current medications and tx plan 03/13/2025: -Continue current medications and tx plan 03/12/2025: -Continue current medications and tx plan 03/11/2025: -Schedule risperidone 1mg qafternoon after lunch 03/10/2025: -Continue current medications and tx plan 03/09/2025: Will continue to develop specific realistic expectations and explore coping skills Will prioritize managing insomnia due to its likely impact on her anxiety Continue Mirtazapine 7.5 mg PO QHS @ 1999 Continue PRN Mirtazapine 7.5 mg QHS for interrupted sleep Continue Prozac 60 mg PO QAM Continue Buspar 15 mg PO BID ( and 1999) Continue PRN Risperidone PO TID for anxiety/agitation; PRN Ativan 1 mg PO TID for acute anxiety refractory to Risperdal; PRN Vistaril 25 mg PO Q4H for mild anxiety Continue PRN Thorazine 25 mg PO QD for management of acute DTO/DTS agitation/aggression Continue PRN Vistaril 50 mg PO QHS for interrupted sleep refractory to PRN Mirtazapine 03/08/2025: Will continue to develop specific realistic realistic expectations and explore coping skills Will prioritize managing insomnia due to its likely impact on her anxiety Continue Mirtazapine 7.5 mg PO QHS @ 1999 Continue PRN Mirtazapine 7.5 mg QHS for interrupted sleep Increase to Prozac 60 mg PO QAM Continue Buspar 15 mg PO BID ( and 1999) Continue PRN Risperidone PO TID for anxiety/agitation; PRN Ativan 1 mg PO TID for acute anxiety refractory to Risperdal; PRN Vistaril 25 mg PO Q4H for mild anxiety Continue PRN Thorazine 25 mg PO QD for management of acute DTO/DTS agitation/aggression Continue PRN Vistaril 50 mg PO QHS for interrupted sleep refractory to PRN Mirtazapine 03/07/2025: Will continue to develop specific realistic realistic expectations and explore coping skills Will prioritize managing insomnia due to its likely impact on her anxiety Continue Current Medications: Continue Mirtazapine 7.5 mg PO QHS @ 1999 Continue PRN Mirtazapine 7.5 mg QHS for interrupted sleep Prozac 40 mg PO QAM Buspar 15 mg PO BID ( and 1999) PRN Risperidone PO TID for anxiety/agitation; PRN Ativan 1 mg PO TID for acute anxiety refractory to Risperdal; PRN Vistaril 25 mg PO Q4H for mild anxiety PRN Thorazine 25 mg PO QD for management of acute DTO/DTS agitation/aggression PRN Vistaril 50 mg PO QHS for interrupted sleep refractory to PRN Mirtazapine 03/06/2025: Directed the patient to write down her treatment objectives to establish realistic expectations. Will prioritize managing insomnia due to its likely impact on her anxiety Continue Current Medications: Decrease to Mirtazapine 7.5 mg PO QHS @ 1999 (more sedating at lower doses) Start PRN Mirtazapine 7.5 mg QHS for interrupted sleep Prozac 40 mg PO QAM Buspar 15 mg PO BID ( and 1999) PRN Risperidone PO TID for anxiety/agitation; PRN Ativan 1 mg PO TID for acute anxiety refractory to Risperdal; PRN Vistaril 25 mg PO Q4H for mild anxiety PRN Thorazine 25 mg PO QD for management of acute DTO/DTS agitation/aggression PRN Vistaril 50 mg PO QHS for interrupted sleep refractory to PRN Mirtazapine 03/05/2025: Directed the patient to write down her treatment objectives to establish realistic expectations. Patient is currently open to long-term inpatient care as well as ECT. Continue Current Medications: Mirtazapine 15 mg PO QHS @ 1999 Prozac 40 mg PO QAM Buspar 15 mg PO BID ( and 1999) PRN Risperidone PO TID for anxiety/agitation; PRN Ativan 1 mg PO TID for acute anxiety refractory to Risperdal; PRN Vistaril 25 mg PO Q4H for mild anxiety PRN Thorazine 25 mg PO QD for management of acute DTO/DTS agitation/aggression PRN Vistaril 50 mg PO QHS for insomnia [patient advised to use for nighttime awakenings] 03/04/2025: -Start risperidone 1mg ODT TID prn for agitation -Valium 2mg one time dose due to distress -Discontinue Wellbutrin 03/03/2025 -Ongoing behavioral activation efforts -Encouraging use of exercise bike given previous foot surgery 03/02/2025: -Increase Wellbutrin XL to 300mg tomorrow 03/01/2025: -Discontinue Klonopin -Discontinue olanzapine -Start Wellbutrin XL 150mg tomorrow AM 02/28/2025: -Taper Klonopin to 0.5mg daily -Increase fluoxetine to 40mg daily -Increase olanzapine to 5mg HS 02/27/2025: -Start olanzapine 2.5mg HS -fasting lipid panel, HbA1c, Vit D, Vit B12, ESR, CRP tomorrow AM 02/26/2025: -Increase Klonopin to 1mg daily 02/25/2025: The patient was admitted to the [facility] ([facility] mental [facility] unit) on q15 min checks (behavioral with suicide precautions) for safety. The patient will participate in group, recreational, and milieu therapies and will be offered additional individual and family sessions as clinically appropriate. -Discontinue trazodone -Start fluoxetine 20mg daily -Increase Buspar to 15mg BID -Start Klonopin 0.5mg daily -Continue mirtazapine 15mg HS -Glycemic pharmacy consult for recommendations regarding need for and dosing for insulin -SW to explore barriers to functioning at home in recent months via family collateral and exploring options for increased support Mental Health & Subst Abuse Tx Psychiatrist Name of Psychiatrist: Sharita Abarca Psychiatrist's Date Of Appointment With Psychiatric Provider: 02/27/25 Psychiatric Appointment Comment: [address] [place] [address] Therapist Name of Therapist: Sharita Abarca Therapist's Date of Therapist Appointment: 02/28/25 Therapy Appointment Comment: [address] [facility] [place] [address] [place] Administrative Law Judge Name of Us Administrative Law Judge: Price VELIZ Phone Number for Us Administrative Law Judge: [phone] Date of Appointment with Us Administrative Law Judge: 03/23/25 Time of Appointment with Us Administrative Law Judge: 2:30PM Case Management Appointment Comment: [address] [place] [address] Post Discharge Appointments Primary Care Physician Name Of Family Doctor/PCP: Dr. Rebeca Abarca Primary Care Date of Future Appointment with PCP: 03/23/2025 [facility] App[facility]ment Comment[facility] [address] [facility] [place] [address] Contact Information Discharge Phone Number: eac - [phone] Discharge [address]: [address] [address] Discharge Plan Discharge Items Patient Disposition: Home - Self-Care Reason For Visit: UNSPECIFIED MOOD D/O Discharge Diagnosis: Major Depressive Disorder, severe with anxious distress Condition on Discharge: Fair Activity: Resume your previous activity Non-emergency contact: Primary Care Provider, Psychiatrist and Therapist Call non-emergency contact if: you have any medication questions and your symptoms worsen Follow-up/Referrals: Rebeca Tipton DO [Primary Care Provider] - Diet: Regular Addtl Attending Provider Instructions: SPECIAL CARE INSTRUCTIONS: 1. Follow through with your scheduled aftercare appointments. If unable to keep an appointment, please call to reschedule. 2. Take your medication only as prescribed. Medication should not be changed or stopped without the approval of your doctor. In the event of worsening symptoms or concerns about side effects, contact your doctor immediately. 3. Utilize new healthy coping skills, anger management skills, and stress management skills learned during your hospitalization. Journal feelings and process them with a support person. Identify stressors or situations that may result in relapse, deterioration or inappropriate behaviors and develop a plan to deal with those issues. 4. If your coping skills are ineffective and you are in crisis, contact your outpatient providers for direction. If unable to reach your providers, please call the [facility] CRISIS LINE AT , go to the [facility] walk-in center at [address], [address], [place], or go to the closest Emergency Room. 5. Avoid alcohol and un-prescribed drugs. 6. You have been provided with the Mental Health Advance Directives Pamphlet for your review. 7. Your condition is stable for discharge to outpatient level of care, but recovery is an ongoing process. Ifthoughts to harm yourself or others return, follow the safety plan developed during your stay. Planning for a safe return home includes securing weapons. Our treatment team recommends weaponsbe removed from the home until your outpatient provider reassesses your progress. In rare cases where the items themselvescannot be removed, guns and ammunitionshould be secured separatelyand keys stored by a reliable personoutside of the home. If you were admitted on an involuntary commitment, the police or other legal authorities may be involved in this process. AFTERCARE APPOINTMENTS: * Please call your insurance company prior to your scheduled appointment to confirm your aftercare providers are covered. Take your insurance information to your appointments. WHO TO CALL AND WHEN: Medical Emergencies: For questions or emergencies related to your hospital stay, please contact the Inpatient Behavioral Health Unit at [phone]. A wood pattern maker is on-call 01/02 for the Behavioral Health Unit for emergencies At any time you feel your situation is an emergency, you may also call 911 immediately. National Crisis Hotline: 985 Pending Studies at Discharge: No Stand-Alone Forms: [facility] Medications and DC Order Prescriptions: New insulin glargine [Lantus U-100 Insulin] 100 unit/mL Solution 6 unit subcut HS Qty: 10 0RF mirtazapine 15 mg Tablet 7.5 mg PO 1999 Qty: 1 0RF mirtazapine 15 mg Tablet 7.5 mg PO HS PRN (Reason: insomnia) Qty: 1 0RF risperidone 1 mg Tablet 1 mg PO DAILYBL Qty: 1 0RF nicotine 7 mg/24 hr Patch 24 Hour 1 patch transdermal QAM Qty: 7 0RF buspirone 15 mg Tablet 15 mg PO BID Qty: 1 0RF fluoxetine 60 mg tablet 60 mg PO DAILY Qty: 1 0RF Continued insulin aspart U-100 [Novolog FlexPen U-100 Insulin] 100 unit/mL (3 mL) Insulin Pen SUBCUT AC Patient Comments: Pt said she uses a sliding scale Changed midodrine 5 mg tablet 5 mg PO BID Qty: 0 0RF Discontinued buspirone 7.5 mg tablet 7.5 mg PO BID mirtazapine [Remeron] 15 mg tablet 15 mg PO HS trazodone 50 mg tablet 50 mg PO HS insulin glargine [Lantus Solostar U-100 Insulin] 100 unit/mL (3 mL) insulin pen 20 unit SUBCUT 1XD Discharge Orders: Discharge Order (Routine); Ordered 03/16/25 Ordered By: Stacia Hernandez/Other Patient Handouts: Managing Type 2 Diabetes Admission Data Admit Date/Time: 02/24/25 14:37 Attending Provider: Stacia Duran Admit Provider: Stacia Duran Primary Care Provider: Rebeca Tipton Other Providers: Gabriel Martínez Other Interventions: Discharge Summary Assessment (RN) Last Done: 03/16/25 09:55 PSY Interdisciplinary Discharge Planning Last Done: 03/16/25 09:55 Coding Level of Care Code 91374 D/C day mgmt > 30 min Diagnoses Recurrent severe major depressive disorder with anxiety F33.2; F41.9 Generalized anxiety disorder with panic attacks F41.1; F41.0 Suicidal ideation R45.851 Insomnia G47.00
[2025-03-16] MEDS: LORazepam 1 MG TAB PO ONE (09:04)
== END 2025-03-16 10:20 | disposition home or self-care (01) | DRG 885 ==
LOC: ED 10:34 → 3S 14:37